=== PATIENT | female | born 1970 | race African-American/Black ===

== ENCOUNTER → 2020-08-31 13:06 | Outpatient (REF) | payer MEDICAID, SELFPAY ==
--- NOTE | 2020-08-31 13:00 | CA_ITS ---
Transthoracic Echocardiogram Patient (Last, First, Middle): Bianca Ward D Gender: Female Date of : 1970 Age: 50 Procedure Date: 08/31/2020 Procedure Type: Transthoracic Echocardiogram Location: OP Height: 167.64 cm Weight: 90.72 kg BSA: 2.00 m2 Heart Rate: bpm BP: 132 / 80 mmHg Housekeeping Associate: JOURDAN Parker MD: Maribel Zamudio NP Solar Project Coordination Specialist: Gold Cameron MD Symptoms: R01.1 CARDIAC MURMUR Study Quality: Good ECG Rhythm: Sinus Conclusions: - Normal study Findings Left Ventricle Normal left ventricular size, thickness, and systolic function. The visually estimated ejection fraction is between 60-65%. Diastolic function is normal for age. Right Ventricle Normal right ventricular cavity size and systolic function. Atria Both atria are normal in size. There is no evidence of interatrial shunt. Aortic Valve Normal aortic valve structure and function. There is no aortic valve stenosis. There is no aortic valve regurgitation. Mitral Valve Normal mitral valve structure and function. There is trace mitral valve regurgitation. There is no mitral valve stenosis. Pulmonic Valve The pulmonic valve is likely normal. There is trace pulmonic valve regurgitation. Tricuspid Valve Normal tricuspid valve structure. There is mild tricuspid valve regurgitation. The right ventricular systolic pressure is normal. The right ventricular systolic pressure is 33 mmHg. Normal right atrial pressure. There is no evidence of pulmonary hypertension. Great Vessels All visible segments of the aorta are normal in size. The visualized portions of the pulmonary artery and branches are normal. Venous The inferior vena cava is normal in size and collapses greater than 50% with inspiration. Pericardium/Pleural There is no evidence of pericardial effusion. Prior Study Comparison No prior study available for comparison. Measurements 2D Linear Measurements IVSd: 1.04 0.6-0.9/0.6-1.0 cm LVIDd: 4.69 3.9-5.3/4.2-5.9 cm LVIDd Index: 2.35 2.4-3.2/2.2-3.1 cm/m2 LVIDs: 2.60 2.0-3.6 cm LVPWd: 1.03 0.7-1.1 cm Ao Root: 2.80 2.1-3.5 cm LA Diam: 4.10 2.7-3.8/3.0-4.0 cm LAIDs Index: 2.05 1.5-2.3 cm/m2 LV Mass: 213.98 67-162/88-224 g LV Mass Index: 106.99 43-95/49-115 g/m2 LVOT Diam: 2.00 3.0+(-)1.3 cm Mitral Valve MV Pk E: 1.03 MV PK A: 0.91 MV Decel Time: 264.00 E/A: 1.10 E'Lateral: 9.79 E'Medial: 7.72 E/E' Med: 13.30 E/E' Lat: 10.50 PHT: 77.00 MVA PHT: 2.86 Decel Tensas: 3.92 Aortic Valve AoV Pk Mauro: 1.61 AoV Mn Mauro: 1.09 AoV VTI: 0.39 AoV Pk Grad: 10.00 Aov Mn Grad: 5.00 DESIREE Cont.VTI: 2.51 LVOT LVOT Pk Mauro: 1.36 LVOT Mn Mauro: 0.89 LVOT VTI: 0.31 LVOT Pk Grad: 7.00 LVOT Mn Grad: 4.00 LVOT Diam: 2.00 LVOT Area: 3.14 Diastolic Function MV Pk E: 1.03 MV Pk A: 0.91 E/A: 1.10 E'Medial: 7.72 E/E' Med: 13.30 E' Laterial: 9.79 E/E' Lat: 10.50 Tricuspid Valve TR Pk Mauro: 2.72 TR Pk Grad: 30.00 RA Press: 3.00 RVSP: 33.00 Great Vessels Aorta Ao Root-2D: 2.80 2.0-3.7 cm Ao Asc: 2.90 2.1-3.4 cm Ao Arch: 2.90 Updated in Other Vendor System with Status of Final Gold Cameron MD electronically signed on 08/31/2020 4:07:09 PM with status of Final
== END ==
LOC: HO.CARD 13:06
PROVIDERS: PCP Emergency Medicine; Visit Provider Emergency Medicine
DX: R01.1 Cardiac murmur, unspecified (principal)
CPT/HCPCS: 93306

== ENCOUNTER → 2020-09-17 09:52 | Outpatient (REF) | payer MEDICAID, SELFPAY ==
--- NOTE | ~2020-09-17 | NM_ITS ---
EXAMINATION: NM BONE SCAN OF THE WHOLE BODY CLINICAL INFORMATION: Right upper quadrant pain and bone pain and rib cage pain. COMPARISON: No previous bone scan is available for comparison. Radiographs of the bilateral feet dated 08/10/2018 and radiographs of the chest dated 09/30/2017 are available for comparison. TECHNIQUE: Multiple gamma scintillation camera images of the whole body were performed 3 hours following the intravenous administration of 32 mCi Tc-99m MDP. FINDINGS: In the head, no significant abnormalities are present. In the thoracic cage and upper extremities, there is mildly increased activity in the region of the left sternoclavicular joint. No other chest abnormalities are present. The ribs appear unremarkable. In the spine, there is a small focus of mildly increased activity in the right side of the mid cervical spine, probably in the posterior elements and due to facet arthropathy. In the pelvis, no significant abnormalities are present. In the lower extremities, there is mildly increased activity in the patellar and medial compartments of both knees and very faintly in the left greater femoral trochanter. No other definite bony abnormalities are noted. The urinary bladder and faint visualization of both kidneys are noted. NM/NM bone scan whole body IMPRESSION: A few mild nonspecific abnormalities are noted as described above and these are all likely arthritic or traumatic in etiology. None of these abnormalities is strongly suspicious for metastatic disease.
== END ==
LOC: HO.NUCMED 09:52
PROVIDERS: Visit Provider Internal Medicine
DX: R10.11 Right upper quadrant pain (principal); E03.9 Hypothyroidism, unspecified; Z86.32 Personal history of gestational diabetes
CPT/HCPCS: 78306; A9503

== ENCOUNTER 2020-10-11 14:19 | Outpatient (REF) | payer MEDICAID, SELFPAY ==
--- NOTE | ~2020-10-11 | CT_ITS ---
EXAMINATION: CT CHEST WITHOUT CONTRAST CLINICAL INFORMATION: Smoking history COMPARISON: Previous chest x-ray most recent September 2017 TECHNIQUE: Multidetector volumetric CT imaging of the chest was done. Axial MIP volume rendering provided. Sagittal and coronal reformatted images were obtained. This CT examination was performed using dose optimization techniques as appropriate, variously including the following: *Automated exposure control *Adjustment of mA and/or kV according to patient size (this includes techniques or standardized protocols for targeted exams where dose is matched to indication/reason for exam; i.e. extremities or head) *Use of iterative reconstruction technique DLP: 297 mGy-cm FINDINGS: SEAT COVER CUTTER: Normal LUNGS: There is slight elevation of the right hemidiaphragm. The lungs are. No evidence of interstitial lung disease emphysema or bronchiectasis is seen. MEDIASTINUM: There is an air collection seen in the right paratracheal region adjacent to the right upper lobe suggestive of a tracheal diverticulum axial image 9 series 4. The mediastinum is otherwise normal. PLEURA: There is no pleural effusion. No pleural mass or thickening. AXILLA: No lymphadenopathy. No chest wall mass. UPPER ABDOMEN: The gallbladder has been removed. There is a benign-appearing calcification high in the dome of the liver. OSSEOUS STRUCTURES: There are mild degenerative changes of the spine. CT/CT chest wo con IMPRESSION: No acute findings. Slight elevation of the right hemidiaphragm. 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
== END 2020-10-11 14:20 | disposition home or self-care (01) ==
LOC: HO.CT 14:19
PROVIDERS: Visit Provider Internal Medicine
DX: J44.9 Chronic obstructive pulmonary disease, unspecified (principal); F17.290 Nicotine dependence, other tobacco product, uncomplicated
CPT/HCPCS: 71250

== ENCOUNTER 2020-10-25 14:42 | Outpatient (REF) | payer MEDICAID, SELFPAY ==
--- NOTE | ~2020-10-25 | MM_ITS ---
EXAMINATION: MM SCREENING DIGITAL BREAST TOMOSYNTHESIS, BILATERAL CLINICAL INFORMATION: Screening. Asymptomatic. The lifetime risk of breast cancer based on the Tyrer-Cuzick Model is 7.1%. COMPARISON: Mammography: September 08, 2018 and studies dating back to June 17, 2011 TECHNIQUE: Digital breast tomosynthesis is performed in both the craniocaudal and mediolateral oblique views along with computer-aided detection (CAD). Synthesized 2D images are generated from the tomosynthesis. Exaggerated right craniocaudal view also performed. FINDINGS: The breasts are extremely dense, which lowers the sensitivity of mammography (ACR BI-RADS breast composition Category d). There are no new significant masses, abnormal calcifications, or other abnormalities. MM/MM tomosynthesis screening BI IMPRESSION: There are no significant changes from prior study. ASSESSMENT: BI-RADS 1: Negative RECOMMENDATION: Routine annual mammography screening. This patient's information was entered into a reminder system with a target due date for their next mammogram.
== END 2020-10-25 14:43 | disposition home or self-care (01) ==
LOC: HO.MAMMO 14:42
PROVIDERS: PCP Internal Medicine; Visit Provider Internal Medicine
DX: Z12.31 Encounter for screening mammogram for malignant neoplasm of breast (principal)
CPT/HCPCS: 77063; 77067

== ENCOUNTER 2020-11-15 09:03 | Outpatient (REF) | payer MEDICAID, SELFPAY ==
--- NOTE | 2020-11-15 09:15 | EMG_ITS ---
Bilateral tibial and peroneal motor studies were performed. Bilateral superficial, peroneal, and sural studies were performed and paraspinal muscles were tested with a needle. IMPRESSION: 1. Bilateral superficial sensory neuropathy. 2. 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 3. No evidence of radiculopathy. MD MARTHA Ng/KAREN / [id number]
== END 2020-11-15 09:04 | disposition home or self-care (01) ==
LOC: HO.NEURO 09:03
PROVIDERS: Visit Provider Internal Medicine
DX: M79.604 Pain in right leg (principal); M79.605 Pain in left leg
CPT/HCPCS: 95886; 95911

== ENCOUNTER 2020-12-06 12:38 | Outpatient (REF) | payer MEDICAID, SELFPAY ==
--- NOTE | ~2020-12-06 | MM_ITS ---
EXAMINATION: BONE DENSITOMETRY CLINICAL INDICATION: Encounter for screening for osteoporosis. Hypothyroidism. COMPARISON: This None (current study represents initial baseline exam). TECHNIQUE: Using a [employer] DXA System (software version: 13.1) manufactured by [employer], dual-energy x-ray absorptiometry was performed of the lumbar spine and left hip. The images are of good technical quality. Summary results are attached. FINDINGS: AP SPINE L1-L4: BMD 1.456 g/cm2, Z-score 2.0, T-score 2.3, normal. LEFT FEMUR, NECK: BMD 1.286 g/cm2, Z-score 2.1, T-score 1.8, normal. LEFT FEMUR, TOTAL: BMD 1.369 g/cm2, Z-score 2.8, T-score 2.9, normal. IDENTIFIED RISK FACTORS: Secondary osteoporosis, (early menopause). Menopause. Tobacco user, (current smoker). Anticonvulsant. HISTORY OF FRACTURE: None listed. MEDICATIONS: ERT/SERMS. MM/XR DEXA axial skeleton IMPRESSION: 1. DIAGNOSIS: Normal bone density based on the lowest T-score value of 1.8 in the femoral neck applying World Health Organization criteria. 2. 10-YEAR FRACTURE RISK PREDICTION, FRAX: Major osteoporotic fracture (clinical spine, forearm, hip or shoulder) 1.8%. Hip fracture 0.0%. 3. Treatment Recommendations: NOF guidelines recommend consideration for treatment in postmenopausal women and men age 50 and older presenting with the following: -A hip or vertebral (clinical or morphometric) fracture. -T-score less than or equal to -2.5 at the femoral neck or spine after appropriate evaluation to exclude secondary causes. -Low bone mass at the hip or spine and a 10-year fracture probability by FRAX of greater than or equal to 3% for hip fracture or greater than or equal to 20% for major osteoporotic fracture based on the [place] adapted WHO algorithm. 4. Other Recommendations: All treatment decisions require clinical judgment and consideration of individual patient factors, including patient preferences, comorbidities, previous drug use, risk factors not captured in the FRAX model (e.g. frailty, falls, vitamin D deficiency, increased bone turnover, interval significant decline in bone density) and possible under or overestimation of fracture risk by FRAX. FUTURE SCAN RECOMMENDATION: People with diagnosed cases of osteoporosis or at high risk for fracture should have regular bone mineral density tests. For patients eligible for Medicare, routine testing is allowed once every 2 years. The testing frequency can be increased to one year for patients who have rapidly progressing disease, those who are receiving or discontinuing medical therapy to restore bone mass, or have additional risk factors.
== END 2020-12-06 12:39 | disposition home or self-care (01) ==
LOC: HO.MAMMO 12:38
PROVIDERS: Visit Provider Internal Medicine
DX: Z13.820 Encounter for screening for osteoporosis (principal); Z78.0 Asymptomatic menopausal state; F17.200 Nicotine dependence, unspecified, uncomplicated; Z79.899 Other long term (current) drug therapy
CPT/HCPCS: 77080

== ENCOUNTER 2021-09-11 07:54 | Outpatient (REF) | payer MEDICAID, SELFPAY ==
[2021-09-11 10:41] LABS: Hemoglobin 13.3 g/dl (12.0-16.0); Mean Corpuscular HGB Conc 32.4 g/dl (31.0-35.0); Mean Corpuscular Hemoglobin 29.6 pg (27.0-33.0); Mean Corpuscular Volume 91.3 fL (80.0-98.0); Mean Platelet Volume 8.9 fL (9.4-12.3); Platelet Count 290 X10*3/uL (160-400); Red Blood Count 4.49 X10*6/uL (4.20-5.50); Red Cell Distribution Width 13.6 % (11.0-16.0); White Blood Count 7.3 X10*3/uL (4.8-10.8)
[2021-09-11 11:44] LABS: Alanine Aminotransferase 19 U/L (0-31); Albumin Level 4.4 g/dL (3.5-5.0); Alkaline Phosphatase 74 U/L (39-117); Anion Gap 10 (12-20); Aspartate Amino Transferase 16 U/L (5-31); Bilirubin Total 0.3 mg/dL (0.0-1.0); Blood Urea Nitrogen 8 mg/dL (9-16); Calcium 9.7 mg/dL (8.4-10.2); Carbon Dioxide 30 mmol/L (22-29); Chloride 102 mmol/L (96-108); Estimated Glomerular Filt Rate > 60; Glucose Random 106 mg/dL (60-115); Lipase < 4 U/L (8-78); Potassium 4.2 mmol/L (3.3-5.1); Sodium 138 mmol/L (135-145); Total Protein 7.1 g/dL (6.5-8.0)
== END 2021-09-11 07:55 | disposition home or self-care (01) ==
LOC: HO.LAB 07:54
PROVIDERS: PCP Internal Medicine; Referring Provider Internal Medicine; Visit Provider Nurse Practitioner Family
DX: K64.8 Other hemorrhoids (principal); R19.7 Diarrhea, unspecified; J45.909 Unspecified asthma, uncomplicated; E78.5 Hyperlipidemia, unspecified; K21.9 Gastro-esophageal reflux disease without esophagitis; K59.04 Chronic idiopathic constipation; Z12.11 Encounter for screening for malignant neoplasm of colon
CPT/HCPCS: 36415; 80053; 83690; 85027; 99212

== ENCOUNTER 2023-04-09 09:28 | Outpatient (REF) | payer MEDICAID, SELFPAY | END 2023-04-09 09:29 | disposition home or self-care (01) | LOC: HO.MAMMO 09:28 | PROVIDERS: PCP Internal Medicine; Visit Provider Internal Medicine | DX: Z12.31 Encounter for screening mammogram for malignant neoplasm of breast (principal) | CPT/HCPCS: 77063; 77067 ==

== ENCOUNTER → 2023-04-09 10:00 | Outpatient (BNV) | payer MEDICAID, SELFPAY | PROVIDERS: PCP Internal Medicine; Visit Provider Radiology Diagnostic Radiology | DX: Z12.31 Encounter for screening mammogram for malignant neoplasm of breast (principal) | CPT/HCPCS: 77063; 77067 ==

== ENCOUNTER 2023-04-14 10:53 | Outpatient (REF) | payer MEDICAID, SELFPAY ==
[2023-04-14 13:49] LABS: Alanine Aminotransferase 11 U/L (0-31); Albumin Level 4.5 g/dL (3.5-5.0); Alkaline Phosphatase 71 U/L (39-117); Aspartate Amino Transferase 17 U/L (5-31); Bilirubin Direct 0.2 mg/dL (0.0-0.5); Bilirubin Total 0.5 mg/dL (0.0-1.0); Total Protein 7.3 g/dL (6.5-8.0)
[2023-04-14 14:14] LABS: Cholesterol 194 mg/dL (<200); HDL Cholesterol 46 mg/dL (>40); LDL Cholesterol Calculated 127 mg/dL (<100); Triglycerides 106 mg/dL (<150)
[2023-04-14 14:31] LABS: Reflex LDLD? No
== END 2023-04-14 10:54 | disposition home or self-care (01) ==
LOC: HO.HHCL 10:53
PROVIDERS: Visit Provider Internal Medicine
DX: E78.2 Mixed hyperlipidemia (principal)
CPT/HCPCS: 36415; 80061; 80076

== ENCOUNTER 2023-06-16 11:39 | Outpatient (REF) | payer MEDICAID, SELFPAY ==
--- NOTE | ~2023-06-16 | XR_ITS ---
EXAMINATION: XR CERVICAL SPINE CLINICAL INFORMATION: COPD, neck pain on left side, weight loss and not intentional. COMPARISON: None available. TECHNIQUE: AP, lateral and 2 odontoid views of the cervical spine were obtained. FINDINGS: Multiple pins and clips overlie the posterior occipital/upper neck area. Multilevel cervical spondylosis with moderate loss of disc space height at C5-C6. Asymmetric bony hypertrophy on the right. XR/XR cervical spine 3V IMPRESSION: Multilevel cervical spondylosis most notable at C5-C6. Correlation with clinical exam recommended to determine further management. If there is concern for fracture or other underlying pathology, MRI could be obtained for further evaluation.
--- NOTE | ~2023-06-16 | XR_ITS ---
EXAMINATION: XR CHEST CLINICAL INFORMATION: Weight loss, COPD, neck pain on left side. Patient states weight loss is unintentional. Numbness and tingling left arm. Patient states 1 to 2 months. No injury. She did state she has neuropathy. COMPARISON: CT scan of the chest of 10/11/2020. Chest radiograph of 09/30/2017. TECHNIQUE: 2 views of the chest were obtained. FINDINGS: The lungs are well-inflated. Heart size is normal. Degenerative changes in the thoracic spine. There is no gross pneumothorax. No pleural effusion. No focal consolidation to suggest pneumonia. Advanced degenerative changes in the thoracic spine. XR/XR chest 2V IMPRESSION: 1. No evidence of pneumonia. 2. Advanced degenerative changes in the thoracic spine. This study was presented today June 16, 2023 at 1:20 PM for interpretation. Stat results provided at this time as requested by referring provider.
== END 2023-06-16 11:40 | disposition home or self-care (01) ==
LOC: HO.HHCX 11:39
PROVIDERS: Visit Provider Internal Medicine
DX: R20.0 Anesthesia of skin (principal); R20.2 Paresthesia of skin; M54.2 Cervicalgia; R63.4 Abnormal weight loss; J44.9 Chronic obstructive pulmonary disease, unspecified
CPT/HCPCS: 71046; 72040

== ENCOUNTER 2023-07-31 13:05 | Outpatient (REF) | payer MEDICAID, SELFPAY ==
--- NOTE | 2023-07-31 13:08 | EMG_ITS ---
Chief complaint: 4 months of left arm numbness Reason for referral: Evaluate for Carpal Tunnel Syndrome versus radiculopathy Referred by: Dr. Teodoro Brown Procedure done: Left upper extremity NCS/EMG Precautions and/or limitations: None The limb temperature was monitored continuously and remained between 32-36 degrees C during the performance of the NCS. Nerve Conduction Studies Anti Sensory Summary Table ?Stim Site NR Onset (ms) Norm Onset (ms) Peak (ms) Norm Peak (ms) O-P Amp (?V) Norm O-P Amp Site1 Site2 Delta-0 (ms) Dist (cm) Mauro (m/s) Norm Mauro (m/s) Left Median Anti Sensory (2nd Digit) Wrist ? 2.7 3.5 <3.6 24.0 >10 Wrist 2nd Digit 2.7 14.0 52 Left Radial Anti Sensory (Thumb) Forearm ? 1.7 2.2 <3.1 21.6 Forearm Thumb 1.7 0.0 Left Ulnar Anti Sensory (5th Digit) Wrist ? 2.6 3.3 <3.7 23.7 >15.0 Wrist 5th Digit 2.6 14.0 54 Motor Summary Table ?Stim Site NR Onset (ms) Norm Onset (ms) O-P Amp (mV) Norm O-P Amp iAmp (mV) Amp (1st) (%) Site1 Site2 Delta-0 (ms) Dist (cm) Mauro (m/s) Norm Mauro (m/s) Left Median Motor (Abd Poll Brev) Wrist ? 3.3 <3.9 11.7 >4.5 13.4 100.0 Elbow Wrist 3.6 23.0 64 >45 Elbow ? 6.9 12.7 14.9 108.5 Left Ulnar Motor (Abd Dig Minimi) Wrist ? 2.9 <3.0 8.6 >5 10.0 100.0 B Elbow Wrist 3.4 18.0 53 >45 B Elbow ? 6.3 8.9 10.7 103.5 A Elbow B Elbow 1.7 10.0 59 >45 A Elbow ? 8.0 8.7 10.5 101.2 EMG ?Side Muscle Nerve Root Ins Act Fibs Psw Amp Dur Poly Recrt Int Pat Comment Left 1stDorInt Ulnar C8-T1 Nml Nml Nml Nml Nml 0 Nml Complete Left FlexCarRad Median C6-7 Nml Nml Nml Nml Nml 0 Nml Complete Left Biceps Musculocut C5-6 Nml Nml Nml Nml Nml 0 Nml Complete Left Triceps Radial C6-7-8 Nml Nml Nml Nml Nml 0 Nml Complete Left Deltoid Axillary C5-6 Nml Nml Nml Nml Nml 0 Nml Complete FINDINGS: All motor and sensory nerves tested showed normal latencies, amplitudes and conduction velocities. Concentric needle EMG was performed in selected muscles of the left upper extremity. Study did not reveal signs of electric abnormalities as shown in the table below. IMPRESSION: 1. This is a normal study. 2. There is no electrodiagnostic evidence for median neuropathy, ulnar neuropathy, brachial plexopathy, or cervical radiculopathy. Thank you for your kind referral. Anh Fuller MD, ARELI Board Certified, [place] [employer] and Rehabilitation (ABPMR) Board Certified, [place] Board of Electrodiagnostic Medicine (ABEM) [place] [id number] [facility]
== END 2023-07-31 13:06 | disposition home or self-care (01) ==
LOC: HO.NEURO 13:05
PROVIDERS: PCP Internal Medicine; Visit Provider Internal Medicine
DX: R20.2 Paresthesia of skin (principal); M54.2 Cervicalgia
CPT/HCPCS: 95886; 95909

== ENCOUNTER → 2023-07-31 13:08 | Outpatient (BNV) | payer MEDICAID, SELFPAY | PROVIDERS: PCP Internal Medicine; Visit Provider Physical Medicine & Rehabilitation | DX: M79.602 Pain in left arm (principal); R20.2 Paresthesia of skin | CPT/HCPCS: 95886; 95909 ==

== ENCOUNTER 2023-10-13 12:26 | Outpatient (REF) | payer MEDICAID, SELFPAY ==
[2023-10-13 13:11] LABS: MANUAL DIFF FLAG NO
[2023-10-13 13:30] LABS: Basophils Absolute Auto 0.1 X10*3/uL (0.0-0.2); Basophils Percent Auto 0.9 % (0-2); Eosinophils Absolute Auto 0.1 X10*3/uL (0.0-0.4); Hematocrit 41.4 % (37.0-47.0); Hemoglobin 13.6 g/dl (12.0-16.0); Imm Gran Abs Auto 0.01 X10*3/uL (0.00-0.03); Imm Gran Pct Auto 0.2 % (0.0-0.4); Lymphocytes Absolute Auto 2.7 X10*3/uL (1.2-4.9); Lymphocytes Percent Auto 50.7 % (20-40); Mean Corpuscular HGB Conc 32.9 g/dl (31.0-35.0); Mean Corpuscular Hemoglobin 29.8 pg (27.0-33.0); Mean Corpuscular Volume 90.6 fL (80.0-98.0); Mean Platelet Volume 10.2 fL (9.4-12.3); Monocytes Absolute Auto 0.4 X10*3/uL (0.1-1.2); Monocytes Percent Auto 6.9 % (2-11); Neutrophils Absolute Auto 2.1 x10*3/uL (2.0-8.3); Neutrophils Percent Auto 39.3 % (45-73); Platelet Count 261 X10*3/uL (160-400); Red Blood Count 4.57 X10*6/uL (4.20-5.50); Red Cell Distribution Width 12.9 % (11.0-16.0); White Blood Count 5.4 X10*3/uL (4.8-10.8)
[2023-10-13 16:16] LABS: Appearance Urine Turbid; Glucose Urine UA Negative (Negative); Leukocyte Esterase Urine Small (1+) (Negative); Nitrite Urine Negative (Negative); UMIC TRIGGER UACC YES; Urine Blood Negative (Negative); Urine Ketones Negative (Negative); Urine Protein Trace mg/dL (Neg-Trace)
[2023-10-13 16:21] LABS: Color Urine Yellow
[2023-10-13 16:32] LABS: Hyaline Casts Urine 0-2 /LPF (0-2); RBC Urine 0-2 /HPF (0-2); UACC Culture Trigger YES; WBC Urine 0-5 /HPF (0-5)
[2023-10-13 16:33] LABS: Bacteria Urine 3+ (None Seen)
[2023-10-13 16:44] LABS: Rheumatoid Factor < 13.0 IU/mL (<15.0)
[2023-10-13 16:51] LABS: Alanine Aminotransferase 9 U/L (0-31); Albumin Level 4.2 g/dL (3.5-5.0); Alkaline Phosphatase 62 U/L (39-117); Anion Gap 12 (12-20); Aspartate Amino Transferase 11 U/L (5-31); Bilirubin Total 0.2 mg/dL (0.0-1.0); Blood Urea Nitrogen 5 mg/dL (9-16); C Reactive Protein 0.11 mg/dL (< or = 0.50); Calcium 9.7 mg/dL (8.4-10.2); Carbon Dioxide 27 mmol/L (22-29); Chloride 104 mmol/L (96-108); Estimated Glomerular Filt Rate > 60; Glucose Random 100 mg/dL (60-115); Sodium 139 mmol/L (135-145); Total Protein 7.1 g/dL (6.5-8.0)
[2023-10-13 16:56] LABS: Erythrocyte Sedimentation Rate 4 MM/HR (0-20)
[2023-10-15 05:09] LABS: Lyme Abs Screen <0.90 index
== END 2023-10-13 12:27 | disposition home or self-care (01) ==
LOC: HO.HHCL 12:26
PROVIDERS: Visit Provider Internal Medicine
DX: R63.4 Abnormal weight loss (principal)
CPT/HCPCS: 36415; 80053; 81001; 85025; 85652; 86140; 86431; 86617; 86618; 87086

== ENCOUNTER 2023-10-29 19:28 | Outpatient (REF) | payer MEDICAID, SELFPAY | END 2023-10-29 19:29 | disposition home or self-care (01) | LOC: HO.MRI 19:28 | PROVIDERS: PCP Internal Medicine; Visit Provider Internal Medicine | DX: Z13.89 Encounter for screening for other disorder (principal) ==

== ENCOUNTER 2024-05-06 09:15 | Outpatient (REF) | payer MEDICAID, SELFPAY ==
[2024-05-06 11:53] LABS: TSH reflex Free T4 2.64 uIU/mL (0.32-4.0)
== END 2024-05-06 09:16 | disposition home or self-care (01) ==
LOC: HO.HHCL 09:15
PROVIDERS: Visit Provider Internal Medicine
DX: R63.4 Abnormal weight loss (principal)
CPT/HCPCS: 36415; 84443

== ENCOUNTER 2024-12-14 16:44 | Outpatient (REF) | payer MEDICAID, SELFPAY ==
--- OUTSIDE RECORDS SUMMARY | 2024-12-14 16:46 | XMS_ITS | Data Portability ---
Author Organization [place] - [facility], Allergy Address [address] [facility] [address] [place] [address] Care Team Providers Care Spa Concierge Name Role Phone ALLYSON BLOOD Primary Care Provider Assessment Encounter Date Assessment Date Assessment LastModified by Organization Details LastModified Time 01/20/2024 01/20/2024 6 months globus sensation and weight loss Examination shows no oral lesions, base of tongue is soft to palpation and neck shows no adenopathy. Transnasal fiberoptic laryngoscopy is normal. Suggest a barium swallow .GI evaluation with EGD pending gisela Not available 01/20/2024 16:00:53 06/03/2024 06/03/2024 Patient presents with persistent sensation of pharyngeal globus, excess saliva, and dysphagia. Last examined in January by Dr. Leach with reassuring laryngoscopy findings. Barium swallow study in February showed normal swallowing mechanism and nonobstructive cricopharyngeal bar. Reviewed with patient today, as Dr. Leach previously stated, there is likely little do be done from ENT perspective. Consider switching to an alcohol-free mouthwash and decreasing to once daily, as the alcohol is drying and may be contributing to compensatory excess saliva production. Discussed likely GI is going to be the best avenue to find relief. 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 Not available 06/03/2024 16:10:42 Plan of Treatment Reminders Order Date Submit Date Provider Last Modified By Organization Details Last Modified Time Details Appointments Establish ed 15 2024 01:15P M MARV VELIZ MD Not available Not available Not available Lab None recorded. Referral None recorded. Procedures None recorded. Surgeries None recorded. Imaging barium swallow study 2023 024 [facility] Radiology (Scheduling, Multiplte Sites), [address] [place], [address], 02/18/2024 11:57:35 Medication Orders None recorded. Patient TargetsNo targets recorded. Patient InstructionsNo instructions recorded. Reason for Referral None Reported. Results Created Date Observation Date Name Description Value Unit Range Abnormal Flag Note LastModifiedBy Organization Detail LastModifiedTime 02/18/20 24 02/18/2024 timoteo ferrer carolynn study No observ ation record ed. [facility] [address] [place], [address], 06/03/2024 15:56:21 Result Notes None recorded. Problems Name Problem SNOMED Code Status Onset Date Resolution Date Notes Provider Name and Address Organization Details Recorded Time Allergic rhinitis 70823776 Active 2015 Other allergic rhinitis; Note: Date Diagnosed: 01/18/2016 2:02 PM (J30.89) Not Available [facility] 4 02:18:37 Bleeding from nose 675775360 Active 2021 Epistaxis; Note: Date Diagnosed: 05/16/2022 1:39 PM (R04.0) Not Available [facility] 4 02:18:30 Nasal congestio n 56070281 Active 2017 Nasal congestion ; Note: Date Diagnosed: 11/02/2017 1:30 PM (R09.81) Not Available [facility] 4 02:19:20 Hypertrop hy of nasal turbinate s 64843951 Active 2017 Hypertroph y of nasal turbinates ; Note: Date Diagnosed: 11/02/2017 4:08 PM (J34.3) Not Available [facility] 4 02:18:41 Dysphagia 84257747 Active 2023 GORDON GENAO MD [address] [place] [address], [place], [address] , [facility] - [facility] 4 11:07:46 Feeling of lump in throat 878818530 Active 2023 GORDON GENAO MD [address] [facility],[place] [address], [facility] [place], [address] , [facility] 4 11:07:48 Gastroeso phageal reflux disease without esophagit is 839691216 Active 2023 ZANDRA CHURCHILL PA-C [address] [facility],[place] [address], [facility] [place] [place], [address] , [facility] 4 16:06:27 Problem Notes None recorded. Procedures Surgical History Date Name Laterality Status Provider Name and Address Organization Details Recorded Time 01/20/20 24 Fiberoptic Laryngoscopy (Comprehensive) completed GORDON LEACH MD [address] [facility] [address], [place], [address], [facility] 01/20/2024 11:09:28 Imaging Results None recorded. Procedure Notes None recorded. Medical Equipment None Reported. Allergies Allergen ID Allergen Name Allergen Category Reaction Reaction Severity Criticality Documentation Date Start Date Code Code System Note Provider Name and Address Organization Details Recorded Time 11570 penicilli n V potassium medicatio n other Not available Not available 10/27/202325217 5 RxNorm React ion: unkno wn, unspe cifie d;; Not Available [facility] 4 00:53:20 Medications Name Sig Start Date Stop Date Status Note LastModified by Organization Details LastModified Time clonidine HCl 0.1 mg tablet TAKE 1 TABLET BY MOUTH TWICE A DAY NEEDED DO NOT TAKE PRAZOSIN active Not Available Not Available No t Available acetamino phen 325 mg tablet active Medicati on ID: [id number] B rand Name: acetamin ophen Se nd Method: E-Prescr ibed Sub s Allowed: subs OK Speci al Instruct ion: TAKE 2 TABLETS BY MOUTH EVERY 6 HOURS NEEDED FOR PAIN (MILD TO MODERATE PAIN) FOR UP TO 10 DAYS. Me dication GenericN yariel: acetamin ophen Not Available Not Available Not Available doxycycli ne hyclate 100 mg capsule TAKE 1 CAPSULE BY MOUTH TWICE A DAY FOR 7 DAYS active Not Available Not Available No t Available clindamyc in HCl 300 mg capsule TAKE 2 CAPSULES BY MOUTH 1 HOUR BEFORE TREATMEN T active Not Available Not Available No t Available albuterol sulfate 2.5 mg/3 mL (0.083 %) solution for nebulizat ion 05/16 completed Medicati on ID: [id number] D uration Value: 8 Brand Name: albutero l sulfate Send Method: E-Prescr ibed Sub s Allowed: subs OK Speci al Instruct ion: INHALE 3 MILLILIT ER BY NEBULIZA TION ROUTE 3 TIMES EVERY DAY NEEDED FOR SHORTNES S OF BREATH M edfernytidayton nGeneric Name: albutero l sulfate Not Available Not Available Not Available loperamid e 2 mg capsule TAKE 1 CAPSULE BY MOUTH EVERY 4 HOURS NEEDED LOOSE STOOL active Not Available Not Available No t Available azithromy laura 250 mg tablet TAKE 2 TABLETS BY MOUTH TODAY, THEN TAKE 1 TABLET DAILY FOR 4 DAYS DIRECTED active Not Available Not Available No t Available CombiPatc h 0.05 mg-0.14 mg/24 hr transderm al APPLY 1 PATCH TO SKIN DIRECTED ON PACKAGE LABELING TWICE PER WEEK active Not Available Not Available No t Available ibuprofen 800 mg tablet TAKE 1 TABLET (800 MG) BY MOUTH IF NEEDED IN THE MORNING, AT NOON, AND AT BEDTIME FOR MILD PAIN. active Not Available Not Available No t Available prazosin 1 mg capsule TAKE 1 CAPSULE BY MOUTH AT BEDTIME active Not Available Not Available No t Available prednison e 20 mg tablet TAKE 2 TABLETS BY MOUTH DAILY FOR 4 DAYS active Not Available Not Available No t Available olanzapin e 5 mg tablet TAKE 1 TABLET BY MOUTH EVERY DAY active Not Available Not Available No t Available clindamyc in HCl 150 mg capsule TAKE 4 CAPSULES BY MOUTH 1 HOUR BEFORE TREATMEN T, THEN 1 CAPSULE 3 TIMES A DAY FOR 4 DAYS active Not Available Not Available No t Available ciproflox acin 250 mg tablet TAKE 1 TABLET BY MOUTH EVERY 12 HOURS FOR 7 DAYS active Not Available Not Available No t Available estradiol -norethin drone acet 1 mg-0.5 mg tablet TAKE 1 TABLET BY MOUTH EVERY DAY active Not Available Not Available No t Available ciproflox acin 500 mg tablet PLEASE SEE ATTACHED FOR DETAILED DIRECTIO NS active Not Available Not Available No t Available sulfameth oxazole 800 mg-trimet hoprim 160 mg tablet PLEASE SEE ATTACHED FOR DETAILED DIRECTIO NS active Not Available Not Available No t Available omeprazol e 40 mg capsule,d elayed release TAKE 1 CAPSULE BY MOUTH TWICE A DAY active Not Available Not Available No t Available quetiapin e 100 mg tablet active Medicati on ID: [id number] B rand Name: quetiapi ne Send Method: E-Prescr ibed Sub s Allowed: subs OK Speci al Instruct ion: TAKE 1/2 TABLET BY MOUTH IN THE MORNING, 1/2 MIDDAY, AND 1 FULL TAB AT BEDTIME Medicati onGeneri cName: quetiapi ne Not Available Not Available Not Available hydrocort isone 2.5 % topical cream with perineal applicato r INSERT INTO THE RECTUM 2 TIMES DAILY. active Not Available Not Available No t Available famotidin e 20 mg tablet TAKE 1 TABLET BY MOUTH TWICE A DAY active Not Available Not Available No t Available trazodone 100 mg tablet TAKE 1 TABLET BY MOUTH EVERY DAY AT BEDTIME NEEDED active Not Available Not Available No t Available dicyclomi ne 20 mg tablet 05/16 completed Medicati on ID: [id number] D uration Value: 30 Brand Name: dicyclom ine Send Method: E-Prescr ibed Sub s Allowed: subs OK Speci al Instruct ion: TOME LILIA TABLETA POR VIA ORAL CUATRO VECES AL JANELL ...30 MINUTES PRIOR TO MEALS AND AT BEDTIME Medicati onGeneri cName: dicyclom ine Not Available Not Available Not Available mirtazapi ne 30 mg tablet active Medicati on ID: [id number] B rand Name: mirtazap ine Send Method: E-Prescr ibed Sub s Allowed: subs OK Speci al Instruct ion: TAKE 1 TABLET BY MOUTH EVERYDAY AT BEDTIME Medicati onGeneri cName: mirtazap ine Not Available Not Available Not Available trazodone 150 mg tablet 05/16 completed Medicati on ID: [id number] D uration Value: 30 Brand Name: trazodon e Send Method: E-Prescr ibed Sub s Allowed: subs OK Speci al Instruct ion: TAKE 1/2 TABLET IN THE AM AND 1 TABLET AT BEDTIME Medicati onGeneri cName: trazodon e Not Available Not Available Not Available ferrous sulfate 325 mg (65 mg iron) tablet TAKE 1 TABLET BY MOUTH EVERY DAY active Not Available Not Available No t Available clotrimaz ole-betam ethasone 1 %-0.05 % topical cream APPLY TO AFFECTED AREA TWICE A DAY active Not Available Not Available No t Available benztropi ne 1 mg tablet TAKE 1 TABLET BY MOUTH ONCE active Not Available Not Available No t Available clotrimaz ole 1 % topical solution APPLY TOPICALL Y 2 (TWO) TIMES A DAY. APPLY TO NAILS AND SKIN active Not Available Not Available No t Available Advair Diskus 500 mcg-50 mcg/dose powder for inhalatio n active Medicati on ID: [id number] B rand Name: Advair Diskus S end Method: E-Prescr ibed Sub s Allowed: subs OK Speci al Instruct ion: TAKE 1 PUFF BY MOUTH EVERY 12 HOURS IN THE MORNING AND IN THE EVENING Medicati onGeneri cName: Advair Diskus Not Available Not Available Not Available gabapenti n 300 mg capsule TAKE 2 CAPSULES BY MOUTH 3 TIMES A DAY active Not Available Not Available No t Available omeprazol e 20 mg capsule,d elayed release TAKE 1 CAPSULE BY MOUTH TWICE A DAY 06/03 completed Not Available Not Available Not Available hydroxyzi ne HCl 25 mg tablet active Medicati on ID: [id number] B rand Name: hydroxyz ine HCl Send Method: E-Prescr ibed Sub s Allowed: subs OK Speci al Instruct ion: TAKE 1 TABLET BY MOUTH 1 TO 3 TIMES DAILY HOLD IF FEELING LIGHTHEA DED/DIZZ Y Medica tionGene ricName: hydroxyz ine HCl Not Available Not Available Not Available olanzapin e 15 mg tablet TAKE 1 TABLET BY MOUTH EVERYDAY AT BEDTIME active Not Available Not Available No t Available azelastin e 137 mcg (0.1 %) nasal spray Inhale 2 spray into both nostrils twice a day as directed 05/16 completed Medicati on ID: [id number] P heidi andino By Name: GENNY Rodriguez nd Name: azelasti ne Send Method: E-Prescr ibed Sub s Allowed: subs OK Medic ationGen ericName : azelasti ne Not Available Not Available Not Available Nasal Decongest ant (pseudoep hedrine) 30 mg tablet TAKE 1 TABLET (30 MG) BY MOUTH EVERY 4 (FOUR) HOURS IF NEEDED FOR CONGESTI ON FOR UP TO 10 DAYS. *NC* active Not Available Not Available No t Available ondansetr on 4 mg disintegr ating tablet active Medicati on ID: [id number] B rand Name: beverly walter Send Method: E-Prescr ibed Sub s Allowed: subs OK Speci al Instruct ion: TAKE 1 TABLET BY MOUTH EVERY DAY Medi cationGe nericNam e: ondanset jose angel Not Available Not Available Not Available lithium carbonate 300 mg tablet TAKE 1 TABLET BY MOUTH TWICE A DAY WITH MEALS active Not Available Not Available No t Available fluticaso ne propionat e 50 mcg/actua tion nasal spray,lanny pension 2 puff into both nostrils once a day 2017 active Medicati on ID: [id number] D uration Value: 120 Prescri bed By Name: GENNY Rodriguez nd Name: fluticas one Send Method: E-Prescr ibed Sub s Allowed: subs OK Medic ationGen ericName : fluticas one Not Available Not Available Not Available clotrimaz ole 1 % topical cream APPLY TO SKIN AND TOENAILS DAILY FOR 12 WEEKS active Not Available Not Available No t Available doxycycli ne hyclate 100 mg tablet PLEASE SEE ATTACHED FOR DETAILED DIRECTIO NS active Not Available Not Available No t Available naproxen 500 mg tablet TAKE 1 TABLET BY MOUTH TWICE A DAY active Not Available Not Available No t Available Ventolin HFA 90 mcg/actua tion aerosol inhaler INHALE 2 PUFFS BY MOUTH EVERY 4 TO 6 HOURS NEEDED active Not Available Not Available No t Available rosuvasta tin 10 mg tablet TAKE 1 TABLET BY MOUTH EVERYDAY AT BEDTIME active Not Available Not Available No t Available bupropion HCl XL 150 mg 24 hr tablet, extended release TAKE 1 TABLET BY MOUTH EVERY DAY IN THE MORNING active Not Available Not Available No t Available nitrofura ntoin monohydra te/macroc rystals 100 mg capsule TAKE 1 CAPSULE BY MOUTH TWICE A DAY FOR 5 DAYS active Not Available Not Available No t Available acamprosa te 333 mg tablet,de layed release active Medicati on ID: [id number] B rand Name: acampros ate Send Method: E-Prescr ibed Sub s Allowed: subs OK Speci al Instruct ion: TAKE 2 TABLETS BY MOUTH 3 TIMES A DAY Medi cationGe nericNam e: acampros ate Not Available Not Available Not Available chlorhexi dine gluconate 0.12 % mouthwash SWISH 15 ML TWICE A DAY AND SPIT OUT active Not Available Not Available No t Available varenicli ne tartrate 0.5 mg (11)-1 mg (42) tablets in a dose pack TAKE DIRECTED ON BOX active Not Available Not Available No t Available quetiapin e 50 mg tablet TAKE 1 TABLET BY MOUTH TWICE A DAY NEEDED active Not Available Not Available No t Available estradiol -norethin drone acet 0.5 mg-0.1 mg tablet TAKE 1 TABLET BY MOUTH EVERY DAY active Not Available Not Available No t Available diclofena c 1 % topical gel APPLY 2 GRAMS TO RIGHT CHEST WALL 2 TIMES A DAY NEEDED active Not Available Not Available No t Available GaviLyte- G 236 gram-22.7 4 gram-6.74 gram-5.86 gram oral solution DRINK 240 ML BY MOUTH EVERY 10 MINUTES active Not Available Not Available No t Available blood pressure test kit-large cuff USE TO CHECK BLOOD PRESSURE ONCE DAILY active Not Available Not Available No t Available Suboxone 8 mg-[address] 1 FILM UNDER TONGUE THREE TIMES A DAY active Not Available Not Available No t Available Suboxone 12 mg-[address] l film [address] 1 FILM UNDER TONGUE ONCE A DAY active Not Available Not Available No t Available naloxone 4 mg/actuat ion nasal spray SPRAY 0.1 ML INTRANAS ALLY FOR OPIOID OVERDOSE . REPEAT IN 3 MINUTES IF NO OR MINIMAL RESPONSE active Not Available Not Available No t Available Readi-Cat 2 2 % (w/v) oral suspensio n INSTRUCT ED BY RADIOLOG Y active Not Available Not Available No t Available Vitals Date Recorded Body height Body mass index (BMI) Body weight Provider Name and Address Organization Details Last Updated DateTime 06/03/2024 167.64 cm 24.2 kg/m2 18349.86 g Bonny Ramirez [place] - [facility] 06/03/2024 15:46:51 Social History None recorded. Functional Status None recorded. Mental Status None recorded. Family History Nothing Reported. Medical History No medical history recorded. Gynecological HistoryNo gynecological history recorded. Obstetrics History GPAL:G 0 P 0 0 0 0 Past Encounters Encounter ID Performer Location Encounter Start Date Encounter Closed Date Diagnosis/Indication Diagnosis SNOMED-CT Code Diagnosis ICD10 Code Diagnosis Note [id number] GORDON GENAO MD [facility] [address] [place] [address] 01/20/2024 10:07:50 01/20/2024 11:10:51 Dysphagia 85184216 R13.10 Feeling of lump in throat 253215270 R09.89 [id number] ZANDRA CHURCHILL PA-C [facility] [address] [place] [address] 06/03/2024 15:31:06 06/03/2024 16:03:09 Feeling of lump in throat 730515835 R09.89 Dysphagia 28144289 R13.1 0 Gastroesop hageal reflux disease without esophagitis 645232803 K21.9 Health Concerns Section Related Observation LastModified by Organization Detai ls LastModified Time None Recorded Concern Status LastModified by Organization Details LastModified Time None Recorded Advance Directives Directive None Recorded Payers Insurance Date Sequence Insurance Name Policy Number Policy Dominguez Covered Member ID Dominguez Member ID Guarantor Name 06/02/2024 1 [place] [facility] Bianca Ward [id number] Bianca Ward 12/09/2024 1 [place] [facility] Bianca D Ed [id number] Bianca Ward Notes Date Note Type Note Provider Name and Address Organization Details Recorded Time 01/20/2024 text/html Patient reports 6 months of sensation of congestion in her throat and difficulty swallowing. She has had no hematemesis or hemoptysis. She reports at least a 40 pound weight loss in this period. Last month she had COVID-19 infection and pharyngitis treated with antibiotics. Prior to that she had no sore throat or ear pain. Those symptoms have resolved. Her voice is back to normal. She notes some mild sinus congestion. She has lots of anxiety. Reports CT scan of neck performed but Rakel contacted [facility] and they said none was in her chart GORDON LEACH MD [address] [place] [address], [place], [address], [place] - [facility] 01/20/2024 16:01:40 06/03/2024 text/html 54 year old femscott kohli presents for evaluation of the throat. Reports she has top partial denture. Removes them at night and the mouth closes tightly and the chin gets displaced. This is causing me this phlegm and congestion in my throat at night. Burning discomfort after she lies down. There is no dysphagia though the swallow sometimes feels effortful. Had some hoarseness recently when she had bronchitis but not otherwise. There is no hemoptysis but sometimes there is blood when she brushes the tongue. A lot of saliva in the mouth. A horrible taste. Mouthwash does not help; she uses this about 3 times per day. She has acid reflux and takes omeprazole 20 mg twice daily which controls the acid reflux without breakthrough symptoms. Briefly took famotidine recently for diarrhea. No change in symptoms. Recently had a colonoscopy. She lost 50 pounds in three months, unintentional. This has been worked up and is negative so far. She has night sweats daily but no fevers. Smokes 3 cigarettes a day, is tapering down in an attempt to quit. Has been smoking 40 years. No history of heavy alcohol intake. Underwent laryngoscopy with Dr. Leach in January that was reassuring. Barium swallow study obtained thereafter demonstrated normal swallowing mechanism with nonobstructive cricopharyngeal bar. GORDON LEACH MD [address] [place] [address], [address], [place] - [facility] 06/03/2024 16:46:02 OBGyn Episode No OBEpisode recorded.
--- OUTSIDE RECORDS SUMMARY | 2024-12-14 16:46 | XMS_ITS | Clinical Summary ---
Author Organization 175 [facility] Address 175 [place] [address] Phone Care Team Providers Care Brownfield Program Coordinator Name Role Phone Teodoro Hubbard MD Primary Care Provi david Allergies Active Allergy Reactions Criticality Noted Date Comments Penicillins 07/03/2020 Medications albuterol 2.5 mg /3 mL (0.083 %) nebulizer solution Take 1 Vial by nebulization every 4 hours as needed. Active albuterol HFA (PROAIR HFA ; PROVENTIL HFA ; VENTOLIN HFA) 90 mcg/actuation inhaler Inhale 2 Puffs into the lungs every 4 hours as needed. Active buprenorphine-n aloxone (SUBOXONE) 8-2 mg [address] film Place under the tongue. Active cloNIDine (CATAPRES) 0.1 mg tablet Take 0.1 mg by mouth 2 times daily. Active clotrimazole (LOTRIMIN) 1 % cream Apply to skin and toenails daily for 12 weeks 4 Active diclofenac (VOLTAREN) 1 % topical gel Apply 4 g topically 2 times daily. 4 Active fluticasone propion-salmete roL (ADVAIR DISKUS) 500-50 mcg/dose diskus inhaler Inhale 1 Puff into the lungs every 12 hours. Active gabapentin (NEURONTIN) 100 mg capsule Take one tablet three times a day for 10 days 2 Active mirtazapine (REMERON) 30 mg tablet Take 30 mg by mouth at bedtime. Active naloxone (Narcan) 4 mg/0.1 mL nasal spray by Nasal route. Acti ve omeprazole (PriLOSEC) [address] capsule Take 1 Capsule by mouth. 3 Active PARoxetine (PAXIL) 20 mg tablet Take 20 mg by mouth every morning. Active tolnaftate (TINACTIN) 1 % external solution Apply topically to toenails 4 Active ciclopirox (LOPROX) 0.77 % gel Apply topically 2 (two) times a day. 45 g 5 02/14/20 25 Active Hospital, Clinic, or Other Facility Administered Medication Ordered Dose Route Frequency Start Date End Date Status lidocaine (PF) (XYLOCAINE-MPF) 1 % injection 0.5 mLIndications:Planta r fascial fibromatosis .5 mL inj Once PRN Procedure 11/15/2024 11/15/2024 Ended triamcinolone acetonide (KENALOG-40) 40 mg/mL injection 20 mgIndications:Planta r fascial fibromatosis 20 mg IAtc Once PRN Procedure 11/15/2024 11/15/2024 Ended Encounters Date Type Department Care Team Description 11/15/2024 1:00 PM EDT Office Visit Orthopedic Surgery [address] [address] Keith Orourke, DPM Dermatophytosis of nail (Primary Dx); Plantar fascial fibromatosis; Tinea pedis of both feet from Last 3 Months Medical History Medical History Date Comments [place] [place] [facility] [place] DX:[facility] ([facility] Hx of cholecystectomy DX:Hx of c holecystectomy Tobacco abuse DX:Tobacco abuse Fibroid DX:Fibroid Substance abuse [place] [place] [facility] [place] DX:Substance abuse ([facility]) Spina bifida occulta DX:Spina bi fida occulta PTSD (post-traumatic stress disorder) DX:PTSD (post-traumatic stress disorder) Hyperlipidemia DX:Hyperlipidemi a COPD (chronic obstructive pu lmonary disease) [place] [place] [facility] [place] DX:COPD (chronic o bstructive pulmonary disease) ([facility]) COPD exacerbation [place] [place] [facility] [place] DX:COPD exacerbation ([facility]) Uterine prolapse DX:Uterine prol apse Burning with urination DX:Burnin g with urination Vaginal discharge DX:Vaginal dis charge Vaginitis DX:Vaginitis Vulvovaginitis DX:Vulvovaginiti s Chronic lower back pain DX:Chron ic lower back pain; COMMENT: h/o herniation l4/5 Social History Tobacco Use Types Packs/Day Years Used Date Smoking Tobacco: Every Day Smokeless Tobacco: Never Alcohol Use Standard Drinks/Week Comments Yes 0 (1 standard drink = 0.6 oz pur e alcohol) Comments Unknown Sex and Gender Information Value Date Recorded Sex Assigned at Not on file Legal Sex Female 6:16 AM EST Gender Identity Not on file Sexual Orientation Not on file Obstetrics History Last Filed Vital Signs Vital Sign Reading Time Taken Comments Blood Pressure - - Pulse - - Temperature - - Respiratory Rate - - Oxygen Saturation - - Inhaled Oxygen Concentration - - Weight 88 kg (194 lb) 08/15/2024 12:49 PM EST Height 167.6 cm (5' 5.98 ) 08/15/2024 12:[address] Body Mass Index 31.33 08/15/2024 12:49 PM EST Plan of Treatment Upcoming Encounters Date Type Department Care Team (Late st Contact Info) Description 02/15/2025 1:00 PM EDT Office Visit Orthopedic Surgery - [place] [id number] [address] Keith Orourke, DPM [address] [address] Health Maintenance Due Date Last Done Comments Breast Cancer Screening 1970 Pneumococcal Vaccine: 50+ Years (2 of 2 - PCV) 05/31/2018 05/31/2017 Pneumococcal Vaccine: Pediatrics (0 to 5 Years) and At-Risk Patients (6 to 64 Years) (2 of 2 - PCV) 05/31/2018 05/31/2017 Cholesterol Screening (Lipid Panel) 05/18/2022 Colorectal Cancer Screening: Colonoscopy 05/18/2022 Hepatitis C Screening 05/18/2022 Social Influencers of Health Screening 05/18/2022 COVID-19 Vaccine ( season) 2024 09/10/2023, 06/12/2021, 09/21/2020, Additional history exists Cervical Cancer Screening: Pap Smear 02/27/2024 02/26/2021 Hypertension/CHF/CAD Annual BMP Blood Test 11/15/2024 Depression Screening 02/10/2025 02/11/2024 Influenza Vaccine (#1) 2025 , 08/18/2018, 03/19/2017, Additional history exists DTaP,Tdap,and Td Vaccines (4 - Td or Tdap) 05/28/2027 05/28/2017, 02/24/2013, 04/19/2009 Hepatitis B Vaccines Completed 07/21/2006, 03/17/2006, 02/04/2006 Hepatitis A Vaccines Completed 08/18/2018, 07/21/2006, 02/04/2006 HIV Screening Completed 09/09/2022 Zoster Vaccines Completed 09/25/2022, 06/30/2022 HIB Vaccines Aged Out No longer eligi ble based on patient's age to complete this topic HPV Vaccines Aged Out No longer eligi ble based on patient's age to complete this topic IPV Vaccines Aged Out No longer eligi ble based on patient's age to complete this topic MMR Vaccines Aged Out No longer eligi ble based on patient's age to complete this topic Meningococcal ACWY Vaccine Aged Out N o longer eligible based on patient's age to complete this topic Meningococcal B Vaccine Aged Out No l onger eligible based on patient's age to complete this topic RSV Immunization Patients Under 20 months Aged Out No longer eligible based on patient's age to complete this topic Varicella Vaccines Aged Out No longer eligible based on patient's age to complete this topic Procedures Procedure Name Priority Date/Time Associated Diagnosis Comments INJECTION TENDON OR LIGAMENT Routine 11/15/2024 1:00 PM EDT Plantar fascial fibromatosis from Last 3 Months Results * Injection tendon or ligament (11/15/2024 1:00 PM EDT) Keith Webber DPM - 11/15/2024 1:00 PM EDT Keith Orourke DPM 11/15/2024 5:50 PM Injection tendon or ligament Indications: pain Details: 25 G needle Medications: 0.5 mL lidocaine (PF) 1 %; 20 mg triamcinolone acetonide 40 mg/mL Informed Consent: Site: Foot ligament tendon us Keith Orourke DPM IN CLINIC/BEDSIDE ORDERAB LES Final Result from Last 3 Months Insurance MEDICA[place] - [place] Care Teams [place] Program Coordinator Relationship Specialty Start Date End Date Teodoro Hubbard MD [address] [place] [address] [place] [address] PCP - General Internal Medicine 06/21/20
== END 2024-12-14 16:45 | disposition home or self-care (01) ==
LOC: HO.LNP 16:44
DX: R30.0 Dysuria (principal)
CPT/HCPCS: 87086

== ENCOUNTER 2024-12-20 11:01 | Outpatient (REF) | payer MEDICAID, SELFPAY ==
--- OUTSIDE RECORDS SUMMARY | 2024-12-20 12:09 | XMS_ITS | Data Portability ---
Author Organization [place] - [facility], Allergy Address 100 [facility] [address] [place] [address] Care Team Providers Care Stone Fabricator Name Role Phone ALLYSON BLOOD Primary Care [...] her omeprazole and follow up with her forestry extension specialist as scheduled. Not available 06/03/2024 16:10:42 Plan of Treatment Reminders Order Date Submit Date Provider Last Modified By Organization Details Last Modified Time Details Appointments Establish ed 15 2024 01:15P M MARV VELIZ MD Not available Not available Not available Lab None recorded. Referral None recorded. Procedures None recorded. Surgeries None recorded. Imaging barium swallow study 2023 024 [facility] Radiology (Scheduling, Multiplte Sites), [address] [place], [address], 02/18/2024 11:57:35 Medication Orders None recorded. Patient TargetsNo targets recorded. Patient InstructionsNo instructions recorded. Reason for Referral None Reported. Results Created Date Observation Date Name Description Value Unit Range Abnormal Flag Note LastModifiedBy Organization Detail LastModifiedTime 02/18/20 24 02/18/2024 timoteo ferrer carolynn study No observ ation record ed. [facility] [address] [place], [address], 06/03/2024 15:56:21 Result Notes None recorded. Problems Name Problem SNOMED Code Status Onset Date Resolution Date Notes Provider Name and Address Organization Details Recorded Time Allergic rhinitis 05989628 Active 2015 Other allergic rhinitis; Note: Date Diagnosed: 01/18/2016 2:02 PM (J30.89) Not Available [facility] 4 02:18:37 Bleeding from nose 644786585 Active 2021 Epistaxis; Note: Date Diagnosed: 05/16/2022 1:39 PM (R04.0) Not Available [facility] 4 02:18:30 Nasal congestio n 19941675 Active 2017 Nasal congestion ; Note: Date Diagnosed: 11/02/2017 1:30 PM (R09.81) Not Available [facility] 4 02:19:20 Hypertrop hy of nasal turbinate s 70521275 Active 2017 Hypertroph y of nasal turbinates ; Note: Date Diagnosed: 11/02/2017 4:08 PM (J34.3) Not Available [facility] 4 02:18:41 Dysphagia 57911779 Active 2023 GORDON GENAO MD [address] [place] [address], [place], [address] , [facility] - [facility] 4 11:07:46 Feeling of lump in throat 790958475 Active 2023 GORDON GENAO MD [address] [facility],[place] [address], [facility] [place], [address] , [facility] 4 11:07:48 Gastroeso phageal reflux disease without esophagit is 498643589 Active 2023 ZANDRA CHURCHILL PA-C [address] [facility],[place] [address], [place], [address] , [facility] 4 16:06:27 Problem Notes None recorded. Procedures Surgical History Date Name Laterality Status Provider Name and Address Organization Details Recorded Time 01/20/20 24 Fiberoptic Laryngoscopy (Comprehensive) completed GORDON LEACH MD [address] [facility], [place], [address], [facility] 01/20/2024 11:09:28 Imaging Results None recorded. Procedure Notes None recorded. Medical Equipment None Reported. Allergies Allergen ID Allergen Name Allergen Category Reaction Reaction Severity Criticality Documentation Date Start Date Code Code System Note Provider Name and Address Organization Details Recorded Time 13489 penicilli n V potassium medicatio n other Not available Not available 10/27/202323980 5 RxNorm React ion: unkno wn, unspe cifie d;; Not Available [facility] 4 00:53:20 Medications Name Sig Start Date Stop Date Status Note LastModified by Organization Details LastModified Time clonidine HCl 0.1 mg tablet TAKE 1 TABLET BY MOUTH TWICE A DAY NEEDED DO NOT TAKE PRAZOSIN active Not Available Not Available No t Available acetamino phen 325 mg tablet active Medicati on ID: [id number] B rand Name: acetamin ophen Se nd [...] nebulizat ion 05/16 completed Medicati on ID: 952338 D uration Value: 8 Brand Name: albutero [...] 100 mg tablet active Medicati on ID: 673566 B rand Name: quetiapi ne Send Method: [...] mg tablet 05/16 completed Medicati on ID: [id number] D uration Value: 30 Brand Name: dicyclom ine Send Method: E-Prescr ibed Sub s Allowed: subs OK Speci al Instruct ion: TOME LILIA TABLETA POR VIA ORAL CUATRO VECES AL JANELL ...30 MINUTES PRIOR TO MEALS AND AT BEDTIME Medicati onGeneri cName: dicyclom ine Not Available Not Available Not Available mirtazapi ne 30 mg tablet active Medicati on ID: 962310 B rand Name: mirtazap ine Send Method: E-Prescr ibed Sub s Allowed: subs OK Speci al Instruct ion: TAKE 1 TABLET BY MOUTH EVERYDAY AT BEDTIME Medicati onGeneri cName: mirtazap ine Not Available Not Available Not Available trazodone 150 mg tablet 05/16 completed Medicati on ID: [id number] D uration Value: 30 Brand Name: trazodon [...] for inhalatio n active Medicati on ID: 906795 B rand Name: Advair Diskus S end [...] 25 mg tablet active Medicati on ID: 994692 B rand Name: hydroxyz ine HCl Send [...] as directed 05/16 completed Medicati on ID: [id number] P heidi [place] By Name: GENNY Rodriguez [...] disintegr ating tablet active Medicati on ID: 373189 B rand Name: beverly walter Send Method: [...] a day 2017 active Medicati on ID: 491416 D uration Value: 120 Prescri bed By Name: GNENY Rodriguez nd Name: fluticas one Send Method: [...] tablet,de layed release active Medicati on ID: 646454 B rand Name: acampros ate Send Method: [...] Updated DateTime 06/03/2024 167.64 cm 24.2 kg/m2 59893.86 g Bonny Ramirez [place] [facility] 06/03/2024 15:46:51 Social History None recorded. Functional Status None recorded. Mental Status None recorded. Family History Nothing Reported. Medical History No medical history recorded. Gynecological HistoryNo gynecological history recorded. Obstetrics History GPAL:G 0 P 0 0 0 0 Past Encounters Encounter ID Performer Location Encounter Start Date Encounter Closed Date Diagnosis/Indication Diagnosis SNOMED-CT Code Diagnosis ICD10 Code Diagnosis Note [id number] GORDON GENAO MD [facility] [address] [place] [address] 01/20/2024 10:07:50 01/20/2024 11:10:51 Dysphagia 76419826 R13.10 Feeling of lump in throat 008938288 R09.89 [id number] ZANDRA CHURCHILL PA-C [facility] 100 [place] [address] 06/03/2024 15:31:06 06/03/2024 16:03:09 Feeling of lump in throat 396607559 R09.89 Dysphagia 59707839 R13.1 0 Gastroesop hageal reflux disease without esophagitis 435268592 K21.9 Health Concerns Section Related Observation LastModified by Organization Detai ls LastModified Time None Recorded Concern Status LastModified by Organization Details LastModified Time None Recorded Advance Directives Directive None Recorded Payers Insurance Date Sequence Insurance Name Policy Number Policy Dominguez Covered Member ID Dominguez Member ID Guarantor Name 06/02/2024 1 [place] [facility] Bianca Ward [id number] Bianca Ward 12/09/2024 1 [place] [facility] Bianca D Ed [id number] Bianca Ward Notes Date Note Type Note [...] scan of neck performed but Rakel contacted [facility] and they said none was in her chart GORDON LEACH MD [address] [place] [address], [place], [address], [place] [facility] 01/20/2024 16:01:40 06/03/2024 text/html 54 year old [...] with nonobstructive cricopharyngeal bar. GORDON LEACH MD [address] [place] [address], [address], [place] [facility] 06/03/2024 16:46:02 OBGyn Episode No OBEpisode recorded.
--- OUTSIDE RECORDS SUMMARY | 2024-12-20 12:09 | XMS_ITS | Encounter Summary ---
Author Organization [employer] Address [address] [facility] 7[address] [place] [address] Care Team Providers Care Overhauler Helper Name Role Phone Teodoro Bone MD Primary Care Provide r Ron Constantino RN Unavailable [phone] Bianca Lewis Unavailable Reason for Visit * Reason Comments Med Refill Encounter Details Date Type Department Care Team (Late st Contact Info) Description 10/14/2024 Refill [facility] [address] [place], [place] [phone] Teodoro Bone MD [address] [place], [place] [phone] Seasonal allergies Social History Tobacco Use Types Packs/Day Years Used Date Smoking Tobacco: Some Days Cigarettes 0.3 35.5 Started: 1989 Passive Smoke Exposure: Current Smokeless Tobacco: Never Comments:5 a day Alcohol Use Standard Drinks/Week Comments Never 0 (1 standard drink = 0.6 oz pur e alcohol) Depression Answer Date Recorded Patient Health Questionnaire-9 Score 24 02/11/2024 Patient Health Questionnaire-9 Score 24 02/11/2024 Last PHQ-9: Questionnaire Data Not on file 0 02/11/2024 Housing Stability Answer Date Recorded What is your housing situation today? I have miryam monahan 02/11/[address] you li ve. Do you have problems with any of the following? None of the above 02/11/2024 Food Insecurity Answer Date Recorded Within the past 12 months, y ou worried that your food would run out before you got money to buy more: Never True 02/11/2024 Within the past 12 months,th e food you bought just didn't last and you didn't have enough money to get more: Never True Transportation Answer Date Recorded In the past 12 months, has l ack of transportation kept you from medical appts, meetings, work or from getting things needed for daily living? No 02/11/2024 Utilities Answer Date Recorded In the past 12 months, has t he [employer], gas, oil or water company threatened to shut off services in your home? No 02/11/2024 Depression Answer Date Recorded Patient Health Questionnaire-2 Score 6 02/11/2024 Internet Access Answer Date Recorded Internet Access Q1 Yes 02/15/2024 Internet Access Q2 Not on file 02/15/2024 Comments Unknown Sex and Gender Information Value Date Recorded Sex Assigned at Female 04/14/2022 10:18 AM EDT Legal Sex Female 10:18 AM EDT Gender Identity Female 04/14/2022 10:18 AM EDT Sexual Orientation Choose not to disclose 2021 10:18 AM EDT documented as of this encounter Plan of Treatment Upcoming Encounters Date Type Department Care Team (Late st Contact Info) Description 12/22/2024 3:15 PM EDT Office Visit [facility] [address] [place] [address] Dalton Leslie CNP [address] [place] [address] 03/09/2025 1:15 PM EDT Office Visit [facility] [address] [place] [address] Teodoro Bone MD [address] [place] [phone] documented as of this encounter Visit Diagnoses Diagnosis Seasonal allergies Allergic rhinitis, cause unspecified documented in this encounter Additional Health Concerns Assessment Noted Time PHQ-9 Depression Total Score: 24 024 1:52 PM EDT documented as of this encounter Care Teams Overhauler Helper Relationship Specialty Start Date End Date Teodoro Bone MD [address] [place] [address] PCP - General Internal Medicine 01/23/17 Ron Constantino RN [address] [place] [address] Registered Nurse Family Medicine 12/12/24 Bianca Lewis 12/12/24 Verenice Medrano Psychological AssistantBrusher Hand 09/09/23 documented as of this encounter
--- OUTSIDE RECORDS SUMMARY | 2024-12-20 12:09 | XMS_ITS | Clinical Summary ---
Author Organization 175 [facility] Address [address] [place] [address] Phone Care Team Providers Care Sand Wheeler Name Role Phone Teodoro Hubbard MD Primary [...] day. 45 g 5 02/14/20 25 Active Encounters Date Type Department Care Team Description 11/15/2024 1:00 PM EDT Office Visit Orthopedic Surgery [address] [address] Keith Orourke, DPM Dermatophytosis of nail (Primary Dx); Plantar fascial fibromatosis; Tinea pedis of both feet from Last 3 Months Medical History Medical History Date Comments [place] [place] [facility] [place] DX:Seizure ([facility]) Hx of cholecystectomy DX:Hx of c holecystectomy Tobacco abuse DX:Tobacco abuse Fibroid DX:Fibroid Substance abuse [place] [place] [facility] [place] DX:Substance abuse ([facility]) Spina bifida occulta DX:Spina bi fida occulta PTSD (post-traumatic stress disorder) DX:PTSD (post-traumatic stress disorder) Hyperlipidemia DX:Hyperlipidemi a COPD (chronic obstructive pu lmonary disease) [place] [place] [facility] [place] DX:COPD (chronic o bstructive pulmonary disease) ([facility]) COPD exacerbation [place] [place] [facility] [place] DX:COPD exacerbation ([facility]) Uterine prolapse DX:Uterine prol apse Burning with [...] PM EDT Office Visit Orthopedic Surgery - [place] [address] [address] Keith Orourke, DPM [address] [address] Health Maintenance Due Date Last Done Comments [...] Screening 02/10/2025 02/11/2024 Influenza Vaccine (#1) 2025 3, 08/18/2018, 03/19/2017, Additional history exists DTaP,Tdap,and Td [...] mg/mL Informed Consent: Site: Foot ligament tendon Keith Orourke DPM IN CLINIC/BEDSIDE ORDERAB LES Final Result from Last 3 Months Insurance MEDICAID - [place] Care Teams Sand Wheeler Relationship Specialty Start Date End Date Teodoro Hubbard MD [address] [place] [address] [place] [address] PCP - General Internal Medicine 06/21/20
[2024-12-20 12:21] LABS: MANUAL DIFF FLAG NO
[2024-12-20 12:23] LABS: Hematocrit 44.2 % (37.0-47.0); Hemoglobin 15.0 g/dl (12.0-16.0); Imm Gran Abs Auto 0.05 X10*3/uL (0.00-0.03); Imm Gran Pct Auto 0.9 % (0.0-0.4); Lymphocytes Absolute Auto 2.1 X10*3/uL (1.2-4.9); Mean Corpuscular HGB Conc 33.9 g/dl (31.0-35.0); Mean Corpuscular Hemoglobin 29.7 pg (27.0-33.0); Mean Corpuscular Volume 87.5 fL (80.0-98.0); NRBC Abs Auto 0.000 X10*3/uL (0.0-0.012); NRBC Pct Auto 0.0 /100WBC (0.0-0.2); Platelet Count 340 X10*3/uL (160-400); Red Blood Count 5.05 X10*6/uL (4.20-5.50); White Blood Count 5.4 X10*3/uL (4.8-10.8)
[2024-12-20 12:48] LABS: Alanine Aminotransferase 77 U/L (0-31); Albumin Level 4.2 g/dL (3.5-5.0); Alkaline Phosphatase 168 U/L (39-117); Anion Gap 12 (12-20); Aspartate Amino Transferase 35 U/L (5-31); Blood Urea Nitrogen 5 mg/dL (9-16); Calcium 9.6 mg/dL (8.4-10.2); Carbon Dioxide 29 mmol/L (22-29); Chloride 101 mmol/L (96-108); Cholesterol 243 mg/dL (<200); Estimated Glomerular Filt Rate > 60; HDL Cholesterol 48 mg/dL (>40); Potassium 3.2 mmol/L (3.3-5.1); Sodium 139 mmol/L (135-145); Total Protein 7.2 g/dL (6.5-8.0); Triglycerides 130 mg/dL (<150)
[2024-12-20 14:31] LABS: Bacterial Vaginosis PCR NEGATIVE (Negative); Candida Group PCR NOT DETECTED (Not Detect); Candida glab krusei PCR NOT DETECTED (Not Detect); Trichomonas vaginalis PCR NOT DETECTED (Not Detect)
== END 2024-12-20 11:02 | disposition home or self-care (01) ==
LOC: HO.HHCL 11:01
PROVIDERS: Internal Medicine; PCP Internal Medicine; Visit Provider Internal Medicine
DX: I10 Essential (primary) hypertension (principal); E78.2 Mixed hyperlipidemia; R30.0 Dysuria; N30.90 Cystitis, unspecified without hematuria; N89.8 Other specified noninflammatory disorders of vagina
CPT/HCPCS: 36415; 80053; 80061; 81515; 85025; 87086

== ENCOUNTER 2024-12-29 15:05 | Outpatient (REF) | payer MEDICAID, SELFPAY ==
--- OUTSIDE RECORDS SUMMARY | 2024-12-29 15:50 | XMS_ITS | Encounter Summary ---
Author Organization [employer] Address [address] [facility] 7t [place] [address] Care Team Providers Care Clothes Presser Name Role Phone Teodoro Bone MD Primary Care Provide r Ron Constantino RN Unavailable [phone] Bianca Lewis Unavailable Reason for Visit * Reason Comments Med Refill Encounter Details Date Type Department Care Team (Late st Contact Info) Description 10/14/2024 Refill [facility] [address] [place], [place] [phone] Teodoro Bone MD [address] [place], [place] [phone] Seasonal allergies Social History Tobacco Use Types [...] the past 12 months, has t he [employer], gas, oil or water company threatened to [...] Care Team (Late st Contact Info) Description 03/09/2025 1:15 PM EDT Office Visit [facility] [address] [place] [address] Teodoro Bone MD [address] [place] [address] documented as of this encounter Visit Diagnoses Diagnosis Seasonal allergies Allergic rhinitis, cause unspecified documented in this encounter Additional Health Concerns Assessment Noted Time PHQ-9 Depression Total Score: 24 024 1:52 PM EDT documented as of this encounter Care Teams Clothes Presser Relationship Specialty Start Date End Date Teodoro Bone MD [address] [place], [place] [phone] PCP - General Internal Medicine 01/23/17 Ron Constantino RN [address] [place] [address] Registered Nurse Family Medicine 12/12/24 Bianca Lewis 12/12/24 Verenice Medrano Intelligence Group SupervisorMechanical Engineering Director 09/09/23 documented as of this encounter
--- OUTSIDE RECORDS SUMMARY | 2024-12-29 15:50 | XMS_ITS | Clinical Summary ---
Author Organization [facility] Address [address] [place] [address] Phone Care Team Providers Care [place] Auditor Name Role Phone Teodoro Hubbard MD Primary [...] 1:00 PM EDT Office Visit Orthopedic Surgery [address] [address] Keith Orourke, DPM Dermatophytosis of nail (Primary Dx); Plantar fascial fibromatosis; Tinea pedis of both feet from Last 3 Months Medical History Medical History Date Comments Seizure ([facility] V24, [facility] V28) DX:Seizure ([facility]) Hx of cholecystectomy DX:Hx of c holecystectomy Tobacco abuse DX:Tobacco abuse Fibroid DX:Fibroid Substance abuse ([facility] V24 , [facility] V28) DX:Substance abuse ([facility]) Spina bifida occulta DX:Spina bi fida occulta PTSD (post-traumatic stress disorder) DX:PTSD (post-traumatic stress disorder) Hyperlipidemia DX:Hyperlipidemi a COPD (chronic obstructive pu lmonary disease) ([facility] V24, [facility] V28) DX:COPD (chronic o bstructive pulmonary disease) ([facility]) COPD exacerbation ([facility] V 24, [facility] V28) DX:COPD exacerbation ([facility]) Uterine prolapse DX:Uterine prol apse Burning with [...] PM EDT Office Visit Orthopedic Surgery - [place] [address] [address] Keith Orourke, DPM [address] [address] Health Maintenance Due Date Last Done Comments Breast Cancer Screening 1970 Pneumococcal Vaccine: 50+ Years (2 of 2 - PCV) 05/31/2018 05/31/2017 Cholesterol Screening (Lipid Panel) 05/18/2022 Colorectal Cancer Screening: Colonoscopy 05/18/2022 Hepatitis C Screening 05/18/2022 Social Influencers of Health Screening 05/18/2022 COVID-19 Vaccine ( season) 2024 09/10/2023, 06/12/2021, 09/21/2020, Additional history exists Cervical Cancer Screening: Pap Smear 02/27/2024 02/26/2021 Depression Screening 06/15/2024 Hypertension/CHF/CAD Annual BMP Blood Test 11/15/2024 Influenza Vaccine (#1) 2025 3, 08/18/2018, 03/19/2017, [...] from Last 3 Months Insurance MEDICAID - [place] Care Teams [place] Aud[place] Relationship Specialty Start Date End Date Teodoro Hubbard MD [address] [place] [address] [place] [address] PCP - General Internal Medicine 06/21/20
--- OUTSIDE RECORDS SUMMARY | 2024-12-29 15:51 | XMS_ITS | Data Portability ---
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 Not available 06/03/2024 16:10:42 Plan of Treatment Reminders Order Date Submit Date Provider Last Modified By Organization Details Last Modified Time Details Appointments Establish ed 15 2024 01:15P M MARV VELIZ MD Not available Not available Not available Lab None recorded. Referral None recorded. Procedures None recorded. Surgeries None recorded. Imaging barium swallow study 2023 024 [facility] (Scheduling, Multiplte Sites), [address] [place], [address], 02/18/2024 11:57:35 Medication Orders None recorded. Patient TargetsNo targets recorded. Patient InstructionsNo instructions recorded. Reason for Referral None Reported. Results Created Date Observation Date Name Description Value Unit Range Abnormal Flag Note LastModifiedBy Organization Detail LastModifiedTime 02/18/20 24 02/18/2024 timoteo ferrer carolynn study No observ ation record ed. [facility] [address] [place], [address], 06/03/2024 15:56:21 Result Notes None recorded. Problems Name Problem SNOMED Code Status Onset Date Resolution Date Notes Provider Name and Address Organization Details Recorded Time Allergic rhinitis 83905768 Active 2015 Other allergic rhinitis; Note: Date Diagnosed: 01/18/2016 2:02 PM (J30.89) Not Available [facility] 4 02:18:37 Nasal congestio n 49726974 Active 2017 Nasal congestion ; Note: Date Diagnosed: 11/02/2017 1:30 PM (R09.81) Not Available [facility] 4 02:19:20 Hypertrop hy of nasal turbinate s 03566408 Active 2017 Hypertroph y of nasal turbinates ; Note: Date Diagnosed: 11/02/2017 4:08 PM (J34.3) Not Available [facility] 4 02:18:41 Bleeding from nose 439990261 Active 2021 Epistaxis; Note: Date Diagnosed: 05/16/2022 1:39 PM (R04.0) Not Available [facility] 4 02:18:30 Dysphagia 49435800 Active 2023 GORDON GENAO MD [address] [place] [address], [place], [address] , [facility] - [facility] 4 11:07:46 Feeling of lump in throat 323668588 Active 2023 GORDON GENAO MD [address] [facility] [address], [place], [address] , [facility] 4 11:07:48 Gastroeso phageal reflux disease without esophagit is 666831242 Active 2023 ZANDRA CHURCHILL PA-C [address] [facility],[place] [address], [place], [address] , [facility] 4 16:06:27 Problem Notes None recorded. Procedures Surgical History Date Name Laterality Status Provider Name and Address Organization Details Recorded Time 01/20/20 24 Fiberoptic Laryngoscopy (Comprehensive) completed GORDON LEACH MD [address] [facility], [place], [address], [facility] 01/20/2024 11:09:28 Imaging Results None recorded. Procedure Notes None recorded. Medical Equipment None Reported. Allergies Allergen ID Allergen Name Allergen Category Reaction Reaction Severity Criticality Documentation Date Start Date Code Code System Note Provider Name and Address Organization Details Recorded Time 77982 penicilli n V potassium medicatio n other Not available Not available 10/27/202366397 5 RxNorm React ion: unkno wn, unspe cifie d;; Not Available [facility] 4 00:53:20 Medications Name Sig Start Date Stop Date Status Note LastModified by Organization Details LastModified Time clonidine HCl 0.1 mg tablet TAKE 1 TABLET BY MOUTH TWICE A DAY NEEDED DO NOT TAKE PRAZOSIN active Not Available Not Available No t Available acetamino phen 325 mg tablet active Medicati on ID: 366052 B rand Name: acetamin ophen Se nd [...] nebulizat ion 05/16 completed Medicati on ID: 209129 D uration Value: 8 Brand Name: albutero [...] 100 mg tablet active Medicati on ID: 970550 B rand Name: quetiapi ne Send Method: [...] mg tablet 05/16 completed Medicati on ID: [id number] D uration Value: 30 Brand Name: dicyclom ine Send Method: E-Prescr ibed Sub s Allowed: subs OK Speci al Instruct ion: TOME LILIA TABLETA POR VIA ORAL CUATRO VECES AL JANELL ...30 MINUTES PRIOR TO MEALS AND AT BEDTIME Medicati onGeneri cName: dicyclom ine Not Available Not Available Not Available mirtazapi ne 30 mg tablet active Medicati on ID: 119869 B rand Name: mirtazap ine Send Method: E-Prescr ibed Sub s Allowed: subs OK Speci al Instruct ion: TAKE 1 TABLET BY MOUTH EVERYDAY AT BEDTIME Medicati onGeneri cName: mirtazap ine Not Available Not Available Not Available trazodone 150 mg tablet 05/16 completed Medicati on ID: 573551 D uration Value: 30 Brand Name: trazodon [...] for inhalatio n active Medicati on ID: 011690 B rand Name: Advair Diskus S end [...] 25 mg tablet active Medicati on ID: 550964 B rand Name: hydroxyz ine HCl Send [...] as directed 05/16 completed Medicati on ID: [id number] P heidi and[place] By Name: GENNY Rodriguez [...] disintegr ating tablet active Medicati on ID: 309999 B rand Name: beverly walter Send Method: [...] a day 2017 active Medicati on ID: 962338 D uration Value: 120 Prescri bed By [...] tablet,de layed release active Medicati on ID: 637552 B rand Name: acampros ate Send Method: [...] Updated DateTime 06/03/2024 167.64 cm 24.2 kg/m2 57718.86 g Bonny Ramirez [place] - [facility] 06/03/2024 15:46:51 Social History None recorded. Functional Status None recorded. Mental Status None recorded. Family History Nothing Reported. Medical History No medical history recorded. Gynecological HistoryNo gynecological history recorded. Obstetrics History GPAL:G 0 P 0 0 0 0 Past Encounters Encounter ID Performer Location Encounter Start Date Encounter Closed Date Diagnosis/Indication Diagnosis SNOMED-CT Code Diagnosis ICD10 Code Diagnosis Note [id number] GORDON GENAO MD [facility] [address] [place] [address] 01/20/2024 10:07:50 01/20/2024 11:10:51 Dysphagia 11997498 R13.10 Feeling of lump in throat 401537458 R09.89 [id number] ZANDRA CHURCHILL PA-C [facility] [address] [place] [address] 06/03/2024 15:31:06 06/03/2024 16:03:09 Feeling of lump in throat 748066242 R09.89 Dysphagia 22214364 R13.1 0 Gastroesop hageal reflux disease without esophagitis 673785029 K21.9 Health Concerns Section Related Observation LastModified by Organization Detai ls LastModified Time None Recorded Concern Status LastModified by Organization Details LastModified Time None Recorded Advance Directives Directive None Recorded Payers Insurance Date Sequence Insurance Name Policy Number Policy Dominguez Covered Member ID Dominguez Member ID Guarantor Name 06/02/2024 1 [place] [facility] Bianca Ward [id number] Bianca Ward 12/09/2024 1 [place] [facility] Bianca D Ed [id number] Bianca Ward Notes Date Note Type Note [...] scan of neck performed but Rakel contacted [facility] and they said none was in her chart GORDON LEACH MD [address] [place] [address], [place], [address], [place] - [facility] 01/20/2024 16:01:40 06/03/2024 text/html 54 year [...] with nonobstructive cricopharyngeal bar. GORDON LEACH MD [address] [place] [address], [address], [place] - [facility] 06/03/2024 16:46:02 OBGyn Episode No OBEpisode recorded.
[2024-12-29 16:39] LABS: Alanine Aminotransferase 28 U/L (0-31); Albumin Level 4.8 g/dL (3.5-5.0); Alkaline Phosphatase 107 U/L (39-117); Anion Gap 11 (12-20); Aspartate Amino Transferase 19 U/L (5-31); Blood Urea Nitrogen 9 mg/dL (9-16); Calcium 9.4 mg/dL (8.4-10.2); Carbon Dioxide 29 mmol/L (22-29); Chloride 104 mmol/L (96-108); Estimated Glomerular Filt Rate > 60; Potassium 3.4 mmol/L (3.3-5.1); Sodium 141 mmol/L (135-145); Total Protein 7.5 g/dL (6.5-8.0)
[2024-12-29 19:32] LABS: Bacterial Vaginosis PCR NEGATIVE (Negative); Candida Group PCR NOT DETECTED (Not Detect); Candida glab krusei PCR NOT DETECTED (Not Detect); Trichomonas vaginalis PCR NOT DETECTED (Not Detect)
== END 2024-12-29 15:06 | disposition home or self-care (01) ==
LOC: HO.HHCL 15:05
PROVIDERS: PCP Internal Medicine; Referring Provider Advanced Practice Midwife; Visit Provider Internal Medicine
DX: I10 Essential (primary) hypertension (principal); N89.8 Other specified noninflammatory disorders of vagina; R30.0 Dysuria
CPT/HCPCS: 36415; 80053; 81515; 87086

== ENCOUNTER 2024-12-31 07:54 | Outpatient (REF) | payer MEDICAID, SELFPAY ==
--- NOTE | ~2024-12-31 | CT_ITS ---
EXAMINATION: CT ABDOMEN PELVIS WITHOUT IV CONTRAST HISTORY: rule out kidney stone COMPARISON: Comparison is made with a prior CT of the abdomen with contrast dated 05/15/2017. TECHNIQUE: CT scan of the abdomen and pelvis was performed without contrast using standard departmental protocol. Coronal and sagittal reformatted images were generated and reviewed. Oral contrast material was not administered per department protocol. This CT exam was performed with one or more of the following dose reduction techniques: automated exposure control, adjustment of the mA and/or kV according to patient size, use of iterative reconstruction technique. DLP: 410 mGy-cm FINDINGS: LOWER CHEST: The visualized lung bases are clear. There is no pleural effusion. CARDIOVASCULATURE: The heart is normal in size. There is no pericardial effusion. LIVER: The liver is normal in size and contour. The liver has an unremarkable unenhanced appearance. GALLBLADDER / BILE DUCTS: The gallbladder is surgically absent. There is no intra or extrahepatic biliary ductal dilatation. SPLEEN: The spleen is normal in size and has an unremarkable unenhanced appearance. PANCREAS: The pancreas has an unremarkable unenhanced appearance. ADRENAL GLANDS: Unremarkable. KIDNEYS/RETROPERITONEUM: No renal or ureteral calculi are identified. There is no hydronephrosis or hydroureter. Again seen is a 3.1 cm cyst in the interpolar region of the right kidney. LYMPH NODES: No retroperitoneal lymphadenopathy is identified in the abdomen or pelvis. VASCULATURE: The abdominal aorta is normal in caliber. MESENTERY/PERITONEUM: No free fluid. No masses. There is no free intraperitoneal gas. STOMACH: The stomach is unremarkable. SMALL BOWEL: The small bowel is normal in caliber. COLON: There is a moderate amount of stool throughout the colon. APPENDIX: Normal. URINARY BLADDER/PELVIC ORGANS: The urinary bladder is collapsed, limiting evaluation. The uterus has an unremarkable unenhanced appearance. The patient is status post bilateral tubal ligation. BONES / SOFT TISSUES: Soft tissue densities in the subcutaneous fat of the anterior abdominal wall are likely related to subcutaneous injections. The bones are intact. CT/CT abdomen pelvis wo IV con IMPRESSION: 1. No evidence of nephrolithiasis or ureteral obstruction. 2. Moderate amount of stool throughout the colon. Electronically signed by: Philip Aguilar MD 01/02/2025 07:11 AM EDT RP
== END 2024-12-31 07:55 | disposition home or self-care (01) ==
LOC: HO.CT 07:54
PROVIDERS: PCP Internal Medicine; Visit Provider Advanced Practice Midwife
DX: R10.9 Unspecified abdominal pain (principal)
CPT/HCPCS: 74176

== ENCOUNTER → 2024-12-31 07:55 | Outpatient (BNV) | payer MEDICAID, SELFPAY | PROVIDERS: PCP Internal Medicine; Visit Provider Radiology Diagnostic Radiology | DX: K56.41 Fecal impaction (principal) | CPT/HCPCS: 74176 ==

== ENCOUNTER 2025-03-09 14:21 | Outpatient (REF) | payer MEDICAID, SELFPAY ==
--- OUTSIDE RECORDS SUMMARY | 2025-03-09 13:15 | XMS_ITS | Encounter Summary ---
Author Organization [employer] Address [address] [facility] 7[address] [place] [address] Care Team Providers Care Cogn[facility] Bi Administrator Name Role Phone Teodoro Bone MD Primary Care Provide r Ron Constantino RN Unavailable [phone] Bianca Lewis Unavailable Reason for Referral * Consultation (Urgent) - Closed Specialty Diagnoses / Procedures Referred By Contmin t Referred To Contact Otolaryngology Diagnoses Abnormality of palate Teodoro Bone MD [address] [place] [address] Phone: tel: fax: [facility] [address] [facility] [address] [place], [place] Phone: tel: fax: Referral ID Status Reason Start Date Expiration Date V isits Requested Visits Authorized [id number] Closed Specialty Services Required 01/25/2025 01/25/2026 6 6 Scheduling Instructions Please refer back to Ear Nose and Throat surgeons, pt well known to their practice. Fax the report of CT done 03/03/2025 of her Neck Reason for Visit * Reason Comments Follow-up HTN Encounter Details Date Type Department Care Team ([facility] st Contact Info) Description 03/09/2025 1:15 PM EDT Office Visit [facility] [address] [place] [address] Teodoro Bone MD [address] [facility] [place] [address] Primary hypertension (Primary Dx); Mixed hyperlipidemia; TMJ tenderness, bilateral; Neck pain on left side; Abnormality of palate; Weight loss; Tinea; Sore throat Social History Tobacco Use Types Packs/Day Years Used Date Smoking Tobacco: Some Days Cigarettes 0.3 35.7 Started: 1989 Passive Smoke Exposure: Current Smokeless Tobacco: Never Comments:5 a day Alcohol Use Standard Drinks/Week Comments Never 0 (1 standard drink = 0.6 oz pur e alcohol) Depression Answer Date Recorded Patient Health Questionnaire-9 Score 9 01/05/2025 Patient Health Questionnaire-9 Score 9 01/05/2025 Last PHQ-9: Questionnaire Data Not on file 0 01/05/2025 Housing Stability Answer Date Recorded What is your housing situation today? I have miryam monahan 02/11/[address] you li ve. Do you have problems with any of the following? None of the above 02/11/2024 Food Insecurity Answer Date Recorded Within the past 12 months, y ou worried that your food would run out before you got money to buy more: Sometimes True 2024 Within the past 12 months,th e food you bought just didn't last and you didn't have enough money to get more: Sometimes True 01/03/2025 Transportation Answer Date Recorded In the past 12 months, has l ack of transportation kept you from medical appts, meetings, work or from getting things needed for daily living? No 02/11/2024 Utilities Answer Date Recorded In the past 12 months, has t he electric, gas, oil or water company threatened to shut off services in your home? No 02/11/2024 Depression Answer Date Recorded Patient Health Questionnaire-2 Score 3 01/05/2025 Internet Access Answer Date Recorded Internet Access Q1 Yes 02/15/2024 Internet Access Q2 Not on file 02/15/2024 Comments No Sex and Gender Information Value Date Recorded Sex Assigned at Female 04/14/2022 10:18 AM EDT Legal Sex Female 10:18 AM EDT Gender Identity Female 04/14/2022 10:18 AM EDT Sexual Orientation Choose not to disclose 2021 10:18 AM EDT documented as of this encounter Last Filed Vital Signs Vital Sign Reading Time Taken Comments Blood Pressure 138/82 03/09/2025 1:28 PM EDT Pulse 88 03/09/2025 1:10 PM EDT Temperature 36.9 C (98.5 F) 03/09/2025 1:10 PM EDT Respiratory Rate 20 03/09/2025 1:10 PM EDT Oxygen Saturation - - Inhaled Oxygen Concentration - - Weight 69.6 kg (153 lb 6.4 oz) 03/09/2025 1:10 P M EDT Height - - Body Mass Index 24.76 12/14/2024 2:54 PM EDT documented in this encounter Progress Notes * Teodoro Brown MD - 03/09/2025 1:15 PM EDT Images from the original note were not included. SUBJECTIVE Bianca Ward is a 54 y.o. female who presents for Follow-up (HTN). Pt is here for a follow up after she had a recent visit to the ER with c/o bilateral jaw pain Hypertension This is a chronic problem. Pertinent negatives include no chest pain, headaches or shortness of breath. Review of Systems Constitutional: Negative for fever. HENT: Negative for sore throat. Respiratory: Negative for cough and shortness of breath. Cardiovascular: Negative for chest pain. Gastrointestinal: Negative for abdominal pain. Neurological: Negative for headaches. Allergies[1] OBJECTIVE Vitals: 03/09/25 1310 03/09/25 1328 BP: (!) 140/100 138/82 Pulse: 88 Resp: 20 Temp: 98.5 ??F (36.9 ??C) TempSrc: Oral Weight: 153 lb 6.4 oz (69.6 kg) Physical Exam Vitals reviewed. Constitutional: Appearance: Normal appearance. HENT: Head: Normocephalic and atraumatic. Right Ear: External ear normal. Left Ear: External ear normal. Nose: Nose normal. Mouth/Throat: Mouth: Mucous membranes are moist. Eyes: Conjunctiva/sclera: Conjunctivae normal. Cardiovascular: Rate and Rhythm: Normal rate and regular rhythm. Pulmonary: Effort: Pulmonary effort is normal. Breath sounds: Normal breath sounds. Skin: General: Skin is warm. Neurological: Mental Status: She is alert. Mental status is at baseline. Assessment/Plan Problem List Items Addressed This Visit Primary hypertension - Primary Pt here for a follow up Blood pressure controlled Regimen: hydrochlorothiazide 12.5 mg po daily Most recent BMP Lab Results Component Value Date NA 141 12/29/2024 NA 139 12/20/2024 K 3.4 12/29/2024 K 3.2 (L) 12/20/2024 CL 104 12/29/2024 CL 101 12/20/2024 BUN 9 12/29/2024 BUN 5 (L) 12/20/2024 CREATININE 0.63 12/29/2024 CREATININE 0.62 12/20/2024 Pt was on Losartan 50 mg po daily. But tpt tells me she stopped it because she was having muscle pain associated with it Pt also tells me she is taking Clonidine Plan: Continue hydrochlorothiazide 12.5 mg po daily 3 month follow up Relevant Orders Comprehensive Metabolic Panel Hyperlipidemia Most recent lipid profile from: Lipids elevated Lab Results Component Value Date TRIG 130 12/20/2024 TRIG 106 04/14/2023 CHOL 243 (H) 12/20/2024 CHOL 194 04/14/2023 LDLCHOLCAL 169 (H) 12/20/2024 LDLCHOLCAL 127 (H) 04/14/2023 HDL 48 12/20/2024 HDL 46 04/14/2023 Previously she was on Lipitor but this was discontinued after pt c/o muscle pain. Pt has been evaluated by [facility] and despite this her Lipids went even higher. Pt was convinced that Rosuvastatin was causing her to loose weight so she stopped taking it. Pt is reluctant to try another medication Plan: Continue observation Given that pt is convinced that the medication is causing her to loose weight we will hold statins for now We might consider start Praluent if she changes her mind TMJ tenderness, bilateral Pt seen in the ER with c/o fever and bilateral jaw pain, for the most part work up was unrevealing with a negative HIV test and basic blood work Work up also included a CT of head and neck soft tissues that showed: 03/03/2025 Nonspecific enlargement, edema, and mucosal hyperenhancement involving the soft palate and uvula, probably infectious or inflammatory changes. No drainable abscess. Apparent elevation of the uvula, of uncertain significance. Underlying neoplastic lesion cannot be excluded. Recommend correlation with direct visualization and consider follow-up. Pt has been seen in the past by ENT I have placed a referral for her to go back and see ENT surgeons Pt today is finishing the course of antibiotics given to her in the ER Pt already scheduled to see her dentist as well Neck pain on left side Pt with previous c/o intermittent left sided neck pain with radiation to left arm for 2 months or so Etiology ? Cervical radiculopathy ? Vs CTS C-sine x-rays showed: Multilevel cervical spondylosis most notable at C5-C6. NCS upper extremities was negative 07/30/2023. MRI of the cervical spine done 11/07/2023 showed: Mild- to Moderate multilevel degenerative disc disease with loss of disc height and disc desiccation throughout the entire cervical spine C5-C6 disc osteophyte complex eccentric to the left. Mod to severe canal stenosis on the left., severe left foraminal narrowing C6-C7 disc osteophyte complex Mod to severe canal stenosis., and mod to severe bilateral foraminal narrowing Abnormality of palate [place] [facility] [place] jaw pain as part of her work up she had a CT of neck with IV contrast that showed: CT Head and Neck with IV contrast 03/03/2025 Nonspecific enlargement, edema, and mucosal hyperenhancement involving the soft palate and uvula, probably infectious or inflammatory changes. No drainable abscess. Apparent elevation of the uvula, of uncertain significance. Underlying neoplastic lesion cannot be excluded. Recommend correlation with direct visualization and consider follow-up. Pt was referred back to ENT for laryngoscopy Relevant Orders Referral to ENT CBC auto differential Weight loss Pt's weight has stabilized Previously she had a 23 lb weight loss since 02/2023 her weight is now 153 lbs Work up included CBC, CMP, CRP,ESR, TSH Previous HIV, Normal Pt is up to date on Her Pap and Colorectal Cancer screening as well as Mammogram. Abdominal CT 03/03/2025 Findings are consistent with fatty infiltration of the liver.Right renal cyst.Tracheal diverticulum. Pt was seen at [facility], last seen 09/17/2023 MRI Abdomen 06/06/2023 showed: Mild extra hepatic and mild central intrahepatic ductal dilatation, unchanged from 2020 MRI. Most likely representing post cholecystectomy changes. No evidence of cholelithiasis. Minimal focal ectasia the most proximal portion of the pancreatic duct is also unchanged from 2020 likely a chronic benign finding per radiologist Repeat Ct Chest and abdominal 03[place]03[place]2025 [place] [facility] [place]al divert[place]um. Pt's weight has fluctuated in the past. Sore throat Relevant Orders POCT Rapid Covid-19 WRIGHT ID NOW (Completed) POCT Rapid Influenza A WRIGHT ID NOW (Completed) POCT Rapid Influenza B WRIGHT ID NOW (Completed) POCT Rapid Strep A OSOM (Completed) Other Visit Diagnoses Tinea Relevant Medications clotrimazole-betamethasone (Lotrisone) cream Future Appointments Date Time Provider Department Center 05/30/2025 1:15 PM Teodoro Brown MD [facility] [1] Allergies Allergen Reactions Penicillins Swelling documented in this encounter Miscellaneous Notes * Assessment & Plan Note - Teodoro Brown MD - 03/09/2025 1:29 PM EDT Associated Problem(s): TMJ tenderness, bilateral Pt seen in the ER with c/o fever and bilateral jaw pain, for the most part work up was unrevealing with a negative HIV test and basic blood work Work up also included a CT of head and neck soft tissues that showed: 03/03/2025 Nonspecific enlargement, edema, and mucosal hyperenhancement involving the soft palate and uvula, probably infectious or inflammatory changes. No drainable abscess. Apparent elevation of the uvula, of uncertain significance. Underlying neoplastic lesion cannot be excluded. Recommend correlation with direct visualization and consider follow-up. Pt has been seen in the past by ENT I have placed a referral for her to go back and see ENT surgeons Pt today is finishing the course of antibiotics given to her in the ER Pt already scheduled to see her dentist as well * Assessment & Plan Note - Teodoro Brown MD - 03/09/2025 1:20 PM EDT Associated Problem(s): Weight loss Images from the original note were not included. Pt's weight has stabilized Previously she had a 23 lb weight loss since 02/2023 her weight is now 153 lbs Work up included CBC, CMP, CRP,ESR, TSH Previous HIV, Normal Pt is up to date on Her Pap and Colorectal Cancer screening as well as Mammogram. Abdominal CT 03/03/2025 Findings are consistent with fatty infiltration of the liver.Right renal cyst.Tracheal diverticulum. Pt was seen at [facility], last seen 09/17/2023 MRI Abdomen 06/06/2023 showed: Mild extra hepatic and mild central intrahepatic ductal dilatation, unchanged from 2020 MRI. Most likely representing post cholecystectomy changes. No evidence of cholelithiasis. Minimal focal ectasia the most proximal portion of the pancreatic duct is also unchanged from 2020 likely a chronic benign finding per radiologist Repeat Ct Chest and abdominal 03[place]03[place]20[place] [facility] [place]al divert[place]um. Pt's weight has fluctuated in the past. * Assessment & Plan Note - Teodoro Brown MD - 03/09/2025 1:17 PM EDT Associated Problem(s): Abnormality of palate Patient [place] [facility] [place]/o jaw pain as part of her work up she had a CT of neck with IV contrast that showed: CT Head and Neck with IV contrast 03/03/2025 Nonspecific enlargement, edema, and mucosal hyperenhancement involving the soft palate and uvula, probably infectious or inflammatory changes. No drainable abscess. Apparent elevation of the uvula, of uncertain significance. Underlying neoplastic lesion cannot be excluded. Recommend correlation with direct visualization and consider follow-up. Pt was referred back to ENT for laryngoscopy * Assessment & Plan Note - Teodoro Brown MD - 03/09/2025 1:12 PM EDT Associated Problem(s): Neck pain on left side Pt with previous c/o intermittent left sided neck pain with radiation to left arm for 2 months or so Etiology ? Cervical radiculopathy ? Vs CTS C-sine x-rays showed: Multilevel cervical spondylosis most notable at C5-C6. NCS upper extremities was negative 07/30/2023. MRI of the cervical spine done 11/07/2023 showed: Mild- to Moderate multilevel degenerative disc disease with loss of disc height and disc desiccation throughout the entire cervical spine C5-C6 disc osteophyte complex eccentric to the left. Mod to severe canal stenosis on the left., severe left foraminal narrowing C6-C7 disc osteophyte complex Mod to severe canal stenosis., and mod to severe bilateral foraminal narrowing * Assessment & Plan Note - Teodoro Brown MD - 03/09/2025 1:09 PM EDT Associated Problem(s): Hyperlipidemia Most recent lipid profile from: Lipids elevated Lab Results Component Value Date TRIG 130 12/20/2024 TRIG 106 04/14/2023 CHOL 243 (H) 12/20/2024 CHOL 194 04/14/2023 LDLCHOLCAL 169 (H) 12/20/2024 LDLCHOLCAL 127 (H) 04/14/2023 HDL 48 12/20/2024 HDL 46 04/14/2023 Previously she was on Lipitor but this was discontinued after pt c/o muscle pain. Pt has been evaluated by [facility] and despite this her Lipids went even higher. Pt was convinced that Rosuvastatin was causing her to loose weight so she stopped taking it. Pt is reluctant to try another medication Plan: Continue observation Given that pt is convinced that the medication is causing her to loose weight we will hold statins for now We might consider start Praluent if she changes her mind * Assessment & Plan Note - Teodoro Brown MD - 03/09/2025 1:07 PM EDT Associated Problem(s): Primary hypertension Pt here for a follow up Blood pressure controlled Regimen: hydrochlorothiazide 12.5 mg po daily Most recent BMP Lab Results Component Value Date NA 141 12/29/2024 NA 139 12/20/2024 K 3.4 12/29/2024 K 3.2 (L) 12/20/2024 CL 104 12/29/2024 CL 101 12/20/2024 BUN 9 12/29/2024 BUN 5 (L) 12/20/2024 CREATININE 0.63 12/29/2024 CREATININE 0.62 12/20/2024 Pt was on Losartan 50 mg po daily. But tpt tells me she stopped it because she was having muscle pain associated with it Pt also tells me she is taking Clonidine Plan: Continue hydrochlorothiazide 12.5 mg po daily 3 month follow up documented in this encounter Plan of Treatment Upcoming Encounters Date Type Department Care Team (Late st Contact Info) Description 05/30/2025 1:15 PM EST Office Visit [facility] MEDICINE [address] [place] [address] [phone] Teodoro Bone MD [address] [place] [address] Scheduled Referrals Name Type Priority Associated Diagnoses Orde r Schedule Referral to ENT Outpatient Referral Urgent Abnormality of palate Expected: 03/09/2025 (Approximate), Expires: 03/09/2026 documented as of this encounter Procedures Procedure Name Priority Date/Time Associated Diagnosis Comments CBC WITH AUTO DIFFERENTIAL Routine 03/09/2025 2:24 PM EDT Abnormality of palate COMPREHENSIVE METABOLIC PANEL Routine 03/09/2025 2:24 PM EDT Primary hypertension POCT INFLUENZA B (ID NOW RAPID MOLECULAR) Routine 03/09/2025 1:55 PM EDT Sore throat POCT INFLUENZA A (ID NOW RAPID MOLECULAR) Routine 03/09/2025 1:55 PM EDT Sore throat POCT COVID-19 AG WRIGHT ID NOW Routine 03/09/2025 1:55 PM EDT Sore throat POCT RAPID STREP A Routine 03/09/2025 1: 55 PM EDT Sore throat documented in this encounter Results * CBC auto differential (03/09/2025 2:24 PM EDT) White Blood Count 6.0 4.8 - 10.8 X10*3/uL [facility] Red Blood Count 4.69 4.20 - 5.50 X10*6/uL [facility] Hemoglobin 14.0 12.0 - 16.0 g/dl [facility] Hematocrit 41.8 37.0 - 47.0 % [facility] Mean Corpuscular Volume 89.1 80.0 - 98.0 fL [facility] Mean Corpuscular Hemoglobin 29.9 27.0 - 33.0 pg [facility] Mean Corpuscular HGB Conc 33.5 31.0 - 35.0 g/dl [facility] Red Cell Distribution Width 13.2 11.0 - 16.0 % [facility] Platelet Count 319 160 - 400 X10*3/uL [facility] Mean Platelet Volume 9.8 9.4 - 12.3 fL [facility] Neutrophils Percent Auto 50.8 45 - 73 % [facility] Imm Gran Pct Auto 0.3 0.0 - 0.4 % [facility] Lymphocytes Percent Auto 39.3 20 - 40 % [facility] Monocytes Percent Auto 7.6 2 - 11 % [facility] Eosinophils Percent Auto 1.5 0 - 4 % [facility] Basophils Percent Auto 0.5 0 - 2 % [facility] NRBC Pct Auto 0.0 0.0 - 0.2 /100WBC [facility] Neutrophils Absolute Auto 3.0 2.0 - 8.3 x10*3/uL [facility] Imm Gran Abs Auto 0.02 0.00 - 0.03 X10*3/uL [facility] Lymphocytes Absolute Auto 2.3 1.2 - 4.9 X10*3/uL [facility] Monocytes Absolute Auto 0.5 0.1 - 1.2 X10*3/uL [facility] Eosinophils Absolute Auto 0.1 0.0 - 0.4 X10*3/uL [facility] Basophils Absolute Auto 0.0 0.0 - 0.2 X10*3/uL [facility] NRBC Abs Auto 0.000 0.0 - 0.012 X10*3/uL [facility] Blood Venous blood specimen / Unknown 03/09/2025 2:24 PM EDT 03/09/2025 5:56 PM EDT us Teodoro Brown MD LAB BLOOD ORDERABLES Final Result [facility] [address] [place] [phone] * (ABNORMAL) Comprehensive Metabolic Panel (03/09/2025 2:24 PM EDT) Sodium 141 135 - 145 mmol/L [facility] Potassium 3.8 3.3 - 5.1 mmol/L [facility] Chloride 101 96 - 108 mmol/L [facility] Carbon Dioxide 31(H) 22 - 29 mmol/L [facility] Anion Gap 13 12 - 20 [facility] Urea Nitrogen (BUN) 7(L) 9 - 16 mg/dL [facility] Creatinine, Serum 0.72 0.5 - 1.4 mg/dL [facility] Estimated Glomerular Filt Rate >60 [facility] Comment:Chronic Kidney Disea se: Estimated GFR < 60 mL/min/1.41a0Rbydya Kidney Disease: Estimated GFR < 15 mL/min/1.73m2 Glucose 89 60 - 115 mg/dL [facility] Calcium 9.7 8.4 - 10.2 mg/dL [facility] Bilirubin, Total 0.4 0.0 - 1.0 mg/dL [facility] Aspartate Amino Transferase 19 5 - 31 U/L [facility] Alanine Aminotransferase 11 0 - 31 U/L [facility] Total Protein 7.1 6.5 - 8.0 g/dL [facility] Albumin Level 4.5 3.5 - 5.0 g/dL [facility] Alkaline Phosphatase 56 39 - 117 U/L [facility] Blood Venous blood specimen / Unknown 03/09/2025 2:24 PM EDT 03/09/2025 5:56 PM EDT us Teodoro Brown MD LAB BLOOD ORDERABLES Final Result Performing Organization Address City/[facility]/ZIP Co de Phone Number [facility] [address] [place] [phone] * POCT Rapid Strep A OSOM (03/09/2025 1:55 PM EDT) [facility] Rapid Strep A Screen Negative Negative, None Detected [facility] QC Media Lot # [id number] [facility] Lot# Expiration Date ,025 [facility] Swab 03/09/2025 1:55 PM EDT us Teodoro Brown MD POINT OF CARE TEST EN TER/EDIT ORDERABLES Final Result Performing Organization Address City/[facility]/ZIP Co de Phone Number [facility] [address] [place] [phone] * POCT Rapid Influenza B WRIGHT ID NOW (03/09/2025 1:55 PM EDT) [facility] Influenza B Negative Negative, Indeterminate [facility] QC Media Lot # [id number] [facility] Lot# Expiration Date ,026 [facility] Swab 03/09/2025 1:55 PM EDT Teodoro Brown MD POINT OF CARE TEST EN TER/EDIT ORDERABLES Final Result Performing Organization Address City/[facility]/ZIP Co de Phone Number [facility] [address] [place] [phone] * POCT Rapid Influenza A WRIGHT ID NOW (03/09/2025 1:55 PM EDT) Influenza A Negative Negative, Indeterminate [facility] QC Media Lot # [id number] [facility] Lot# Expiration Date , [facility] Swab 03/09/2025 1:55 PM EDT Teodoro Brown MD POINT OF CARE TEST EN TER/EDIT ORDERABLES Final Result Performing Organization Address [facility] Co de Phone Number [facility] [address] [place] [phone] * POCT Rapid Covid-19 WRIGHT ID NOW (03/09/2025 1:55 PM EDT) Coronavirus Antigen PCR Negative Negative, Indeterminate, None Detected, Invalid, Specimen unsatisfactory for evaluation, Weakly Positive, 2+ [facility] QC Media Lot # [id number] [facility] Lot# Expiration Date , [facility] Swab 03/09/2025 1:55 PM EDT Teodoro Brown MD POINT OF CARE TEST EN TER/EDIT ORDERABLES Final Result Performing Organization Address [facility]/ZIP Co de Phone Number [facility] [address] [place] [phone] documented in this encounter Visit Diagnoses Diagnosis Primary hypertension- Primary Unspecified essential hypertension Mixed hyperlipidemia TMJ tenderness, bilateral Neck pain on left side Abnormality of palate Weight loss Loss of weight Tinea Dermatophytosis of unspecified site Sore throat Acute pharyngitis documented in this encounter Additional Health Concerns Assessment Noted Time PHQ-9 Depression Total Score: 9 01/06/20 25 2:11 PM EDT documented as of this encounter Care Teams [employer] Administrator Relationship Specialty Start Date End Date Teodoro Bone MD [address] [place] [address] PCP - General Internal Medicine 01/23/17 Ron Constantino RN [address] [place] [address] Registered Nurse Family Medicine 12/12/24 Bianca Lewis 12/12/24 Verenice Medrano Electromechanical InspectorPotato Loader 09/09/23 documented as of this encounter
[2025-03-09 18:01] LABS: MANUAL DIFF FLAG NO
[2025-03-09 18:12] LABS: Hematocrit 41.8 % (37.0-47.0); Hemoglobin 14.0 g/dl (12.0-16.0); Imm Gran Abs Auto 0.02 X10*3/uL (0.00-0.03); Imm Gran Pct Auto 0.3 % (0.0-0.4); Lymphocytes Absolute Auto 2.3 X10*3/uL (1.2-4.9); Mean Corpuscular HGB Conc 33.5 g/dl (31.0-35.0); Mean Corpuscular Hemoglobin 29.9 pg (27.0-33.0); Mean Corpuscular Volume 89.1 fL (80.0-98.0); NRBC Abs Auto 0.000 X10*3/uL (0.0-0.012); NRBC Pct Auto 0.0 /100WBC (0.0-0.2); Platelet Count 319 X10*3/uL (160-400); Red Blood Count 4.69 X10*6/uL (4.20-5.50); White Blood Count 6.0 X10*3/uL (4.8-10.8)
[2025-03-09 18:44] LABS: Alanine Aminotransferase 11 U/L (0-31); Albumin Level 4.5 g/dL (3.5-5.0); Alkaline Phosphatase 56 U/L (39-117); Anion Gap 13 (12-20); Aspartate Amino Transferase 19 U/L (5-31); Blood Urea Nitrogen 7 mg/dL (9-16); Calcium 9.7 mg/dL (8.4-10.2); Carbon Dioxide 31 mmol/L (22-29); Chloride 101 mmol/L (96-108); Estimated Glomerular Filt Rate > 60; Potassium 3.8 mmol/L (3.3-5.1); Sodium 141 mmol/L (135-145); Total Protein 7.1 g/dL (6.5-8.0)
--- OUTSIDE RECORDS SUMMARY | 2025-03-09 18:45 | XMS_ITS | Encounter Summary ---
Author Organization [employer] Address [address] [facility] 7t [place] [address] Care Team Providers Care Hand Sample Maker Name Role Phone Teodoro Bone MD Primary Care Provide r Ron Constantino RN Unavailable [phone] Bianca Lewis Unavailable Reason for Visit * Reason Comments Med Refill Encounter Details Date Type Department Care Team (Late st Contact Info) Description 12/02/2022 Refill [facility] [address] [place], [place] [phone] Teodoro Bone MD [address] [place], [place] [phone] Acute midline low back pain without sciatica Social History Tobacco Use Types Packs/Day Years Used Date Smoking Tobacco: Former Cigarettes 0.3 35.7 S tarted: 1989 Passive Smoke Exposure: Past Smokeless Tobacco: Never Alcohol Use Standard Drinks/Week Comments Never 0 (1 standard drink = 0.6 oz pur e alcohol) Depression Answer Date Recorded Patient Health Questionnaire-9 Score 6 11/13/2022 Depression Answer Date Recorded Patient Health Questionnaire-2 Score 0 11/13/2022 Comments Unknown Sex and Gender Information Value Date Recorded Sex Assigned at Female 04/14/2022 10:18 AM EDT Legal Sex Female 10:18 AM EDT Gender Identity Female 04/14/2022 10:18 AM EDT Sexual Orientation Choose not to disclose 2021 10:18 AM EDT COVID-19 Exposure Response Date Recorded In the last 10 days, have yo u been in contact with someone who was confirmed or suspected to have Coronavirus/COVID-19? No / Unsure 11/13/2022 12:39 PM EDT documented as of this encounter Plan of Treatment Upcoming Encounters Date Type Department Care Team (Late st Contact Info) Description 05/30/2025 1:15 PM EST Office Visit [facility] [address] [place], [place] [phone] Teodoro Bone MD [address] [place] [address] documented as of this encounter Visit Diagnoses Diagnosis Acute midline low back pain without sciatica documented in this encounter Additional Health Concerns Assessment Noted Time PHQ-9 Depression Total Score: 6 11/14/19 23 1:08 PM EDT documented as of this encounter Care Teams Hand Sample Maker Relationship Specialty Start Date End Date Teodoro Bone MD [address] [place] [address] PCP - General Internal Medicine 01/23/17 Ron Constantino, NUBIA [address] [place] [address] Registered Nurse Family Medicine 12/12/24 Bianca Lewis 12/12/24 Verenice Medrano Staffing AssistantTitle Coordinator 09/09/23 documented as of this encounter
--- OUTSIDE RECORDS SUMMARY | 2025-03-09 18:45 | XMS_ITS | Encounter Summary ---
Author Organization [employer] Address 75 [facility] 7t [place] [address] Care Team Providers Care Nuclear Radiation Engineer Name Role Phone Teodoro Bone MD Primary Care Provide r Ron Constantino RN Unavailable [phone] Bianca Lewis Unavailable Reason for Visit * Reason Comments Med Refill Encounter Details Date Type Department Care Team (Late st Contact Info) Description 01/09/2023 Refill [facility] [address] [place], [place] [phone] Jaclyn Romano MD 230 [place] [address] Acute midline low back pain without sciatica [...] Description 05/30/2025 1:15 PM EST Office Visit [facility] [address] [place] [address] Teodoro Bone MD [address] [place] [address] documented as of this encounter Visit Diagnoses Diagnosis Acute midline low back pain without sciatica documented in this encounter Additional Health Concerns Assessment Noted Time PHQ-9 Depression Total Score: 6 11/14/19 23 1:08 PM EDT documented as of this encounter Care Teams Nuclear Radiation Engineer Relationship Specialty Start Date End Date Teodoro Bone MD [address] [place] [address] PCP - General Internal Medicine 01/23/17 Ron Constantino RN [address] [place] [address] Registered Nurse Family Medicine 12/12/24 Bianca Lewis 12/12/24 Verenice Medrano Game Bird FarmerMedical Instrument Cable Fabricator 09/09/23 documented as of this encounter
--- OUTSIDE RECORDS SUMMARY | 2025-03-09 18:45 | XMS_ITS | Encounter Summary ---
Author Organization [employer] Address 75 [facility] 7t [place] [address] Care Team Providers Care Licensed Audiologist Name Role Phone Teodoro Bone MD Primary Care Provide r Ron Constantino RN Unavailable [phone] Bianca Lewis Unavailable Reason for Visit * Reason Comments Med Refill Encounter Details Date Type Department Care Team (Late st Contact Info) Description 10/14/2024 Refill [facility] 230 [place], [place] [phone] Teodoro Bone MD 230 [place], [place] [phone] Seasonal allergies Social History Tobacco Use Types [...] the past 12 months, has t he [employer], gas, oil or water company threatened to [...] Description 05/30/2025 1:15 PM EST Office Visit [facility] [address] [place] [address] Teodoro Bone MD [address] [place] [address] documented as of this encounter Visit Diagnoses Diagnosis Seasonal allergies Allergic rhinitis, cause unspecified documented in this encounter Additional Health Concerns Assessment Noted Time PHQ-9 Depression Total Score: 24 024 1:52 PM EDT documented as of this encounter Care Teams Licensed Audiologist Relationship Specialty Start Date End Date Teodoro Bone MD 230 [place] [address] PCP - General Internal Medicine 01/23/17 Ron Constantino RN [address] [place] [address] Registered Nurse Family Medicine 12/12/24 Bianca Lewis 12/12/24 Verenice Medrano Flatwork IronerHeadmaster/Mistress 09/09/23 documented as of this encounter
--- OUTSIDE RECORDS SUMMARY | 2025-03-09 18:45 | XMS_ITS | Encounter Summary ---
Author Organization [employer] Address [address] [facility] [address] 7t [place] [address] Care Team Providers Care Manufacturing Supervisor 2Nd Shift Name Role Phone Teodoro Bone MD Primary Care Provide r Ron Constantino RN Unavailable [phone] Bianca Lewis Unavailable Reason for Visit * Reason Comments Med Refill Encounter Details Date Type Department Care Team (Late st Contact Info) Description 03/09/2025 Refill [facility] 230 [place], [place] [phone] Smitha Wharton FNP 230 [place] [address] COVID Social History Tobacco Use Types Packs/Day Years [...] the past 12 months, has t he [employer], gas, oil or water company threatened to [...] Description 05/30/2025 1:15 PM EST Office Visit [facility] [address] [place] [address] Teodoro Bone MD [address] [place] [address] documented as of this encounter Visit Diagnoses Diagnosis COVID documented in this encounter Additional Health Concerns Assessment Noted Time PHQ-9 Depression Total Score: 9 01/06/20 25 2:11 PM EDT documented as of this encounter Care Teams Manufacturing Supervisor 2Nd Shift Relationship Specialty Start Date End Date Teodoro Bone MD [address] [place] [address] PCP - General Internal Medicine 01/23/17 Ron Constantino RN [address] [place] [address] Registered Nurse Family Medicine 12/12/24 Bianca Lewis 12/12/24 Verenice Medrano Stockroom KeeperNumerical Control Tool Programmer 09/09/23 documented as of this encounter
--- OUTSIDE RECORDS SUMMARY | 2025-03-09 18:45 | XMS_ITS | Encounter Summary ---
Author Organization [employer] Address [address] [facility] [address] 7t [place] [address] Care Team Providers Care Fruit Grader Operator Name Role Phone Teodoro Bone MD Primary Care Provide r Ron Constantino RN Unavailable [phone] Bianca Lewis Unavailable Encounter Details Date Type Department Care Team ([facility] st Contact Info) Description 03/06/2025 Patient Outreach [facility] 230 [place], [place] [phone] Teodoro Bone MD 230 [place], [place] [phone] Social History Tobacco Use Types Packs/Day Years [...] Description 05/30/2025 1:15 PM EST Office Visit [facility] [address] [place] [address] Teodoro Bone MD [address] [place] [address] documented as of this encounter Visit Diagnoses Not on filedocumented in this encounter Additional Health Concerns Assessment Noted Time PHQ-9 Depression Total Score: 9 01/06/20 25 2:11 PM EDT documented as of this encounter Care Teams Fruit Grader Operator Relationship Specialty Start Date End Date Teodoro Bone MD 230 [place] [address] PCP - General Internal Medicine 01/23/17 Ron Constantino RN [address] [place] [address] Registered Nurse Family Medicine 12/12/24 Bianca Lewis 12/12/24 Verenice Medrano Head Correction OfficerSales Expert 09/09/23 documented as of this encounter
--- OUTSIDE RECORDS SUMMARY | 2025-03-09 18:45 | XMS_ITS | Encounter Summary ---
Author Organization [employer] Address [address] [facility] [address] 7t [place] [address] Care Team Providers Care Public Health Service Officer Name Role Phone Teodoro Bone MD Primary Care Provide r Ron Constantino RN Unavailable [phone] Bianca Lewis Unavailable Encounter Details Date Type Department Care Team (Latest Contact Info) Description 03/09/2025 Travel Social History Tobacco Use Types Packs/Day Years [...] Description 05/30/2025 1:15 PM EST Office Visit [facility] 230 [place] [address] Teodoro Bone MD [address] [place] [address] documented as of this encounter Visit Diagnoses Not on filedocumented in this encounter Additional Health Concerns Assessment Noted Time PHQ-9 Depression Total Score: 9 01/06/20 25 2:11 PM EDT documented as of this encounter Care Teams Public Health Service Officer Relationship Specialty Start Date End Date Teodoro Bone MD [address] [place] [address] PCP - General Internal Medicine 01/23/17 Ron Constantino, NUBIA [address] [place] [address] Registered Nurse Family Medicine 12/12/24 Bianca Lewis 12/12/24 Verenice Medrano Fisheries DiverResults Technician 09/09/23 documented as of this encounter
--- OUTSIDE RECORDS SUMMARY | 2025-03-09 18:45 | XMS_ITS | Encounter Summary ---
Author Organization [employer] Address 75 [facility] 7t [place] [address] Care Team Providers Care Rn Neurosurgical Name Role Phone eTodoro Bone MD Primary Care Provide r Ron Constantino RN Unavailable [phone] Bianca Lewis Unavailable Reason for Visit * Reason Comments Med Refill Encounter Details Date Type Department Care Team (Late st Contact Info) Description 03/04/2025 Refill [facility] [address] [place], [place] [phone] Teodoro Bone MD 230 [place], [place] [phone] Primary hypertension; Seasonal allergies Social History Tobacco Use Types [...] Description 05/30/2025 1:15 PM EST Office Visit [facility] [address] [place] [address] Teodoro Bone MD 230 [place] [address] documented as of this encounter Visit Diagnoses Diagnosis Primary hypertension Unspecified essential hypertension Seasonal allergies Allergic rhinitis, cause unspecified documented in this encounter Additional Health Concerns Assessment Noted Time PHQ-9 Depression Total Score: 9 01/06/20 25 2:11 PM EDT documented as of this encounter Care Teams Rn Neurosurgical Relationship Specialty Start Date End Date Teodoro Bone MD [address] [place] [address] PCP - General Internal Medicine 01/23/17 Ron Constantino RN [address] [place] [address] [place] [address] Registered Nurse Family Medicine 12/12/24 Bianca Lewis 12/12/24 Verenice Medrano Electrical Tester BatteryMangle Tender 09/09/23 documented as of this encounter
--- OUTSIDE RECORDS SUMMARY | 2025-03-09 18:45 | XMS_ITS | Encounter Summary ---
Author Organization [employer] Address 75 [facility] 7t [place] [address] Care Team Providers Care High Scaler Name Role Phone Teodoro Bone MD Primary Care Provide r Ron Constantino RN Unavailable [phone] Bianca Lewis Unavailable Reason for Visit * Reason Comments Med Refill Encounter Details Date Type Department Care Team (Late st Contact Info) Description 01/09/2023 Refill [facility] 230 [place], [place] [phone] Madisyn Rodriguez MD 230 [place] [address] Heartburn Social History Tobacco Use Types Packs/Day Years [...] Description 05/30/2025 1:15 PM EST Office Visit [facility] 230 [place] [address] Teodoro Bone MD 230 [place], [place] [phone] documented as of this encounter Visit Diagnoses Diagnosis Heartburn documented in this encounter Additional Health Concerns Assessment Noted Time PHQ-9 Depression Total Score: 6 11/14/19 23 1:08 PM EDT documented as of this encounter Care Teams High Scaler Relationship Specialty Start Date End Date Teodoro Bone MD 230 [place], [place] [phone] PCP - General Internal Medicine 01/23/17 Ron Constantino RN [address] [place] [address] Registered Nurse Family Medicine 12/12/24 Bianca Lewis 12/12/24 Verenice Medrano Research InvestigatorLearning Disabilities Teacher 09/09/23 documented as of this encounter
--- OUTSIDE RECORDS SUMMARY | 2025-03-09 18:46 | XMS_ITS | Encounter Summary ---
Author Organization [employer] Address 75 [facility] 7t [place] [address] Care Team Providers Care Sales Floor Team Member Name Role Phone Teodoro Bone MD Primary Care Provide r Ron Constantino RN Unavailable [phone] Bianca Lewis Unavailable Encounter Details Date Type Department Care Team (Latest Contact Info) Description 12/13/2018 Abstract [facility] CONVERSIONS Dental, Provider, DDS Social History Tobacco Use Types Packs/Day Years Used Date Smoking Tobacco: Never Assessed Comments Unknown Sex and Gender Information Value [...] Description 05/30/2025 1:15 PM EST Office Visit [facility] 230 [place], [place] [phone] Teodoro Bone MD 230 [place], [place] [phone] documented as of this encounter Visit Diagnoses Not on filedocumented in this encounter Care Teams Sales Floor Team Member Relationship Specialty Start Date End Date Teodoro Bone MD 230 [place], [place] [phone] PCP - General Internal Medicine 01/23/17 Ron Constantino RN [address] [place] [address] [place] [address] Registered Nurse Family Medicine 12/12/24 Bianca Lewis 12/12/24 Verenice Medrano Inside FinisherSplit Leather Mosser 09/09/23 documented as of this encounter
--- OUTSIDE RECORDS SUMMARY | 2025-03-09 18:46 | XMS_ITS ---
Author Organization [employer] Address 75 [facility] 7t [place] [address] Care Team Providers Care Car Pilot Name Role Phone Teodoro Bone MD Primary Care Provide r Ron Constantino RN Unavailable [phone] Bianca Lewis Unavailable [facility] Status:Enrolled (Active) Start date:12/12/2024 Enrollment date:01/03/2025 Enrollment reason:ADT Feed Overview ED- Pt went to [facility] on 12/10/24. Please outreach for enrollment. Case Team Name Relationship Phone Bianca Lweis(Responsible Staff) Continued Care and Services Coordination
--- OUTSIDE RECORDS SUMMARY | 2025-03-09 18:46 | XMS_ITS | Encounter Summary ---
Author Organization [employer] Address [address] [facility] 7t [place] [address] Care Team Providers Care Rail Crew Member Name Role Phone Teodoro Bone MD Primary Care Provide r Ron Constantino RN Unavailable [phone] Bianca Lewis Unavailable Reason for Visit * Reason Comments Med Refill Encounter Details Date Type Department Care Team (Late st Contact Info) Description 10/31/2022 Refill [facility] 230 [place], [place] [phone] Arabella Hernandez, ANP [address] [place], [place] [phone] Skyler Social History Tobacco Use Types Packs/Day Years Used Date Smoking Tobacco: Former Cigarettes 0.3 35.7 S tarted: 1989 Passive Smoke Exposure: Never Smokeless Tobacco: Never Alcohol Use Standard Drinks/Week [...] suspected to have Coronavirus/COVID-19? No / Unsure 10/07/2022 11:13 AM EDT documented as of this encounter Plan of Treatment Upcoming Encounters Date Type Department Care Team (Late st Contact Info) Description 05/30/2025 1:15 PM EST Office Visit [facility] 230 [facility] [place] [address] Teodoro Bone MD [address] [place] [address] documented as of this encounter Visit Diagnoses Diagnosis Tinea Dermatophytosis of unspecified site documented in this encounter Care Teams Rail Crew Member Relationship Specialty Start Date End Date Teodoro Bone MD [address] [place], [place] [phone] PCP - General Internal Medicine 01/23/17 Ron Constantino RN [address] [place] [address] Registered Nurse Family Medicine 12/12/24 Bianca Lewis 12/12/24 Verenice Medrano Shuttle Route Vehicle OperatorCall Out Operator 09/09/23 documented as of this encounter
--- OUTSIDE RECORDS SUMMARY | 2025-03-09 18:46 | XMS_ITS | Encounter Summary ---
Author Organization [employer] Address [address] [facility] [address] 7t [place] [address] Care Team Providers Care Grain Mixer Name Role Phone Teodoro Bone MD Primary Care Provide r Ron Constantino RN Unavailable [phone] Bianca Lewis Unavailable Encounter Details Date Type Department Care Team (Late st Contact Info) Description 08/25/2024 Orders Only [facility] [address] [place] [address] Provider, MD Mckenna Social History Tobacco Use Types Packs/Day Years [...] Description 05/30/2025 1:15 PM EST Office Visit [facility] MEDICINE 230 [place] [address] Teodoro Bone MD [address] [place] [address] documented as of this encounter Procedures Procedure Name Priority Date/Time Associated Diagnosis Comments HM PAP/HPV Routine 05/03/2024 10:27 AM EST documented in this encounter Results * HM PAP/HPV (05/03/2024 10:27 AM EST) us Historical Provider HEALTH MAINTENANCE Final Result documented in this encounter Visit Diagnoses Not on filedocumented in this encounter Additional Health Concerns Assessment Noted Time PHQ-9 Depression Total Score: 24 024 1:52 PM EDT documented as of this encounter Care Teams Grain Mixer Relationship Specialty Start Date End Date Teodoro Bone MD [address] [place] [address] PCP - General Internal Medicine 01/23/17 Ron Constantino, NUBIA [address] [place] [address] Registered Nurse Family Medicine 12/12/24 Bianca Lewis 12/12/24 Verenice Medrano Coil Winder StrapDragline Mechanic 09/09/23 documented as of this encounter
--- OUTSIDE RECORDS SUMMARY | 2025-03-09 18:46 | XMS_ITS | Encounter Summary ---
Author Organization [employer] Address 75 [facility] 7t [place] [address] Care Team Providers Care Recording Clerk Name Role Phone Teodoro Bone MD Primary Care Provide r Ron Constantino RN Unavailable [phone] Bianca Lewis Unavailable Reason for Visit * Reason Comments Med Refill Encounter Details Date Type Department Care Team (Late st Contact Info) Description 01/20/2023 Refill [facility] 230 [place], [place] [phone] Teodoro Bone MD 230 [place], [place] [phone] Tinea Social History Tobacco Use Types Packs/Day Years [...] 1:15 PM EST Office Visit [facility] [address] [place] [address] Teodoro Bone MD [address] [place] [address] documented as of this encounter Visit Diagnoses Diagnosis Tinea Dermatophytosis of unspecified site documented in this encounter Additional Health Concerns Assessment Noted Time PHQ-9 Depression Total Score: 6 11/14/19 23 1:08 PM EDT documented as of this encounter Care Teams Recording Clerk Relationship Specialty Start Date End Date Teodoro Bone MD [address] [place] [address] PCP - General Internal Medicine 01/23/17 Ron Constantino RN [address] [address] Registered Nurse Family Medicine 12/12/24 Bianca Lewis 12/12/24 Verenice Medrano Systems ManagerShochet 09/09/23 documented as of this encounter
--- OUTSIDE RECORDS SUMMARY | 2025-03-09 18:46 | XMS_ITS | Encounter Summary ---
Author Organization [employer] Address 75 [facility] 7t [place] [address] Care Team Providers Care Harness Builder Name Role Phone Teodoro Bone MD Primary Care Provide r Ron Constantino RN Unavailable [phone] Bianca Lewis Unavailable Reason for Visit * Reason Onset Date Comments MRI 10/30/2023 Encounter Details Date Type Department Care Team ([facility] st Contact Info) Description 10/30/2023 Telephone [facility] MEDICINE 230 [place], [place] [phone] Teodoro Bnoe MD 230 [place], [place] [phone] MRI Social History Tobacco Use Types Packs/Day Years Used Date Smoking Tobacco: Some Days Cigarettes 0.3 35.7 Started: 1989 Passive Smoke Exposure: Current Smokeless Tobacco: Never Alcohol Use Standard Drinks/Week Comments Never 0 (1 standard drink = 0.6 oz pur e alcohol) Depression Answer Date Recorded Patient Health Questionnaire-9 Score 6 11/13/2022 Housing Stability Answer Date Recorded What is your housing situation today? I have miryam taniya 04/13/[address] you li ve. Do you have problems with any of the following? None of the above 04/13/2023 Food Insecurity Answer Date Recorded Within the past 12 months, y ou worried that your food would run out before you got money to buy more: Never True 04/13/2023 Within the past 12 months,th e food you bought just didn't last and you didn't have enough money to get more: Never True Transportation Answer Date Recorded In the past 12 months, has l ack of transportation kept you from medical appts, meetings, work or from getting things needed for daily living? No 04/13/2023 Utilities Answer Date Recorded In the past 12 months, has t he electric, gas, oil or water company threatened to shut off services in your home? No 04/13/2023 Depression Answer Date Recorded Patient Health Questionnaire-2 Score 0 11/13/2022 Comments Unknown Sex and Gender Information Value Date Recorded Sex Assigned at Female 04/14/2022 10:18 AM EDT Legal Sex Female 10:18 AM EDT Gender Identity Female 04/14/2022 10:18 AM EDT Sexual Orientation Choose not to disclose 2021 10:18 AM EDT documented as of this encounter Miscellaneous Notes * Telephone Encounter - Kiki Constantino - 10/30/2023 11:28 AM EDT Tc from pt requesting for MRI to be sent to [facility]. States she became claustrophobic and was not able to complete MRI. Any questions, contact pt at [phone] documented in this encounter Plan of Treatment Upcoming Encounters Date Type Department Care Team (Late st Contact Info) Description 05/30/2025 1:15 PM EST Office Visit [facility] MEDICINE 230 [place], [place] [phone] Teodoro Bone MD 230 [place] [address] documented as of this encounter Visit Diagnoses Not on filedocumented in this encounter Additional Health Concerns Assessment Noted Time PHQ-9 Depression Total Score: 6 11/14/19 23 1:08 PM EDT documented as of this encounter Care Teams Harness Builder Relationship Specialty Start Date End Date Teodoro Bone MD 230 [place], [place] [phone] PCP - General Internal Medicine 01/23/17 Ron Constnatino, NUBIA [address] [place] [address] Registered Nurse Family Medicine 12/12/24 Bianca Lewis 12/12/24 Verenice Medrano Beam Press OperatorLand Department Head 09/09/23 documented as of this encounter
--- OUTSIDE RECORDS SUMMARY | 2025-03-09 18:46 | XMS_ITS ---
Author Organization [employer] Address [address] [facility] [address]t [place] [address] Care Team Providers Care Adaptive Physical Educator Name Role Phone Teodoro Bone MD Primary Care Provide r Ron Constantino RN Unavailable [phone] Bianca Lewis Unavailable CM Complex Status:Enrolled (Active) Start date:12/12/2024 Enrollment date:01/05/2025 Enrollment reason:ADT Feed Overview ED- Pt went to [facility] ED on 12/10/24. Case Team Name Relationship Phone Ron Constantino RN(Responsible Staff) Registered Nurse [phone] Continued Care and Services Coordination
--- OUTSIDE RECORDS SUMMARY | 2025-03-09 18:46 | XMS_ITS | Encounter Summary ---
Author Organization [employer] Address [address] [facility] 7t [place] [address] Care Team Providers Care Floor Inspector Name Role Phone Teodoro Bone MD Primary Care Provide r Ron Constantino RN Unavailable [phone] Bianca Lewis Unavailable Reason for Visit * Reason Onset Date Comments Nurse Triage 12/28/2023 Encounter Details Date Type Department Care Team ([facility] st Contact Info) Description 12/28/2023 Telephone [facility] [address] [place], [place] [phone] Teodoro Bone MD [address] [place], [place] [phone] Nurse Triage Social History Tobacco Use Types Packs/Day Years [...] is your housing situation today? I have miryampooja monahan 04/13/[address] you li [...] encounter Miscellaneous Notes * Telephone Encounter - Deborah Amor RN - 12/28/2023 9:52 AM EDT Triage call Pt reports continues with severe sore throat. Pt was seen in [facility] 12/23/23. Pt was prescribed antibiotics, encouraged to gargle and has followed all instructions. Pt is finished with antibiotics and still feels the same. Neg for fever. Pt requests antibiotics and declines to come to [facility] no OV available. Contacted Dr. Fernandez, via [employer]. Dr. Fernandez saw Pt in [facility] 12/23/23, creative services writer asked Dr. Fernandez ifcall could be made to Pt and more antibiotics prescribed. Dr. Fernandez advised for Pt to come to [facility] to be seen before antibiotics could be ordered. Second call to Pt, advised Pt again to come to [facility] today, explained that provider recommends this. Pt had reported, I will just take some clindamycin which I have here. . Pt is advised not to take antibiotics that have not been prescribed for this sore throat and to come to [facility]. Pt agrees to come to [facility] to be seen today. Pt reports agreement with disposition and home care is already implemented. Insurance is verified as active. Protocol Used: Sore Throat (Adult) Protocol-Based Disposition: See in Office or Video Visit Today Video visit not offered Positive Triage Question: * Severe sore throat pain * All higher-acuity triage questions were negative Care Advice Discussed: * Reassurance and Education - Sore Throat * Sore Throat * Soft Diet * Drink Plenty of Liquids * Pain and Fever Medicines * Contagiousness * Expected Course * Reasons To Call Back - Sore throat is the main symptom and it lasts longer than 48 hours - Sore throat is mild but lasts longer than 4 days - Fever lasts longer than 3 days - You become worse * Telephone Encounter - Snehal Pacheco - 12/28/2023 8:56 AM EDT Symptom: Sore Throat Outcome: Schedule an urgent appointment (within 4 hours) or talk to a nurse or provider soon Reason: Trouble drinking The caller accepted this outcome documented in this encounter Plan of Treatment Upcoming Encounters Date Type Department Care Team (Late st Contact Info) Description 05/30/2025 1:15 PM EST Office Visit [facility] [address] [place] [address] Teodoro Bone MD [address] [place] [address] documented as of this encounter Visit Diagnoses Not on filedocumented in this encounter Additional Health Concerns Assessment Noted Time PHQ-9 Depression Total Score: 6 11/14/19 23 1:08 PM EDT documented as of this encounter Care Teams Floor Inspector Relationship Specialty Start Date End Date Teodoro Bone MD [address] [place] [address] PCP - General Internal Medicine 01/23/17 Ron Constantino RN [address] [place] [phone] Registered Nurse Family Medicine 12/12/24 Bianca Lewis 12/12/24 Verenice Medrano In Flight TechnicianSource Inspector 09/09/23 documented as of this encounter
--- OUTSIDE RECORDS SUMMARY | 2025-03-09 18:46 | XMS_ITS | Encounter Summary ---
Author Organization [employer] Address [address] [facility] 7t [place] [address] Care Team Providers Care Financial Services Intern Name Role Phone Teodoro Bone MD Primary Care Provide r Ron Constantino RN Unavailable [phone] Bianca Lewis Unavailable Reason for Visit * Reason Comments Med Refill Encounter Details Date Type Department Care Team (Late st Contact Info) Description 10/31/2022 Refill [facility] [address] [place], [place] [phone] Name, MD Conrad [address] [place], [place] [phone] Heartburn Social History Tobacco Use Types Packs/Day [...] Description 05/30/2025 1:15 PM EST Office Visit [facility] [address] [facility] [place] [address] Teodoro Bone MD [address] [place] [address] documented as of this encounter Visit Diagnoses Diagnosis Heartburn documented in this encounter Care Teams Financial Services Intern Relationship Specialty Start Date End Date Teodoro Bone MD [address] [place], [place] [phone] PCP - General Internal Medicine 01/23/17 Ron Constantino, NUBIA [address] [place] [phone] Registered Nurse Family Medicine 12/12/24 Bianca Lewis 12/12/24 Verenice Medrano Telehealth Case ManagerCook Fruit 09/09/23 documented as of this encounter
--- OUTSIDE RECORDS SUMMARY | 2025-03-09 18:46 | XMS_ITS | Encounter Summary ---
Author Organization [employer] Address [address] [facility] 7t [place] [address] Care Team Providers Care Creative Services Specialist Name Role Phone Teodoro Bone MD Primary Care Provide r Ron Constantino RN Unavailable [phone] Bianca Lewis Unavailable Reason for Visit * Reason Comments Med Refill Encounter Details Date Type Department Care Team (Late st Contact Info) Description 06/21/2023 Refill [facility] [address] [place], [place] [phone] Jaclyn Romano MD [address] [place] [address] Acute midline low back pain without sciatica [...] 1:15 PM EST Office Visit [facility] [address] [place] [phone] Teodoro Bone MD [address] [place] [phone] documented as of this encounter Visit Diagnoses Diagnosis Acute midline low back pain without sciatica documented in this encounter Additional Health Concerns Assessment Noted Time PHQ-9 Depression Total Score: 6 11/14/19 23 1:08 PM EDT documented as of this encounter Care Teams Creative Services Specialist Relationship Specialty Start Date End Date Teodoro Bone MD [address] [place] [phone] PCP - General Internal Medicine 01/23/17 Ron Constantino, NUBIA [address] [place] [phone] Registered Nurse Family Medicine 12/12/24 Bianca Lewis 12/12/24 Verenice Medrano Cabin SupervisorContainer Repairer 09/09/23 documented as of this encounter
--- OUTSIDE RECORDS SUMMARY | 2025-03-09 18:46 | XMS_ITS | Encounter Summary ---
Author Organization [employer] Address [address] [facility] 7[address] [place] [address] Care Team Providers Care Car Starter Name Role Phone Teodoro Bone MD Primary Care Provide r Ron Constantino RN Unavailable [phone] Bianca Lewis Unavailable Reason for Visit * Reason Comments Med Refill Encounter Details Date Type Department Care Team (Late st Contact Info) Description 10/16/2022 Refill [facility] [address] [place], [place] [phone] Teodoro Bone MD [address] [place], [place] [phone] Acute midline low back pain without sciatica [...] Description 05/30/2025 1:15 PM EST Office Visit [facility] [address] [place] [address] Teodoro Bone MD [address] [place], [place] [phone] documented as of this encounter Visit Diagnoses Diagnosis Acute midline low back pain without sciatica documented in this encounter Care Teams Car Starter Relationship Specialty Start Date End Date Teodoro Bone MD [address] [place], [place] [phone] PCP - General Internal Medicine 01/23/17 Ron Constantino RN [address] [place] [phone] Registered Nurse Family Medicine 12/12/24 Bianca Lewis 12/12/24 Verenice Medrano Handcrew ForemanDecontaminator 09/09/23 documented as of this encounter
--- OUTSIDE RECORDS SUMMARY | 2025-03-09 18:46 | XMS_ITS | Clinical Summary ---
Author Organization [employer] Address [address] [facility] [address] [place] [address] Care Team Providers Care Surgical Assist Name Role Phone Teodoro Bone MD Primary Care Provide r Ron Constantino RN Unavailable [phone] Bianca Lewis Unavailable Allergies Active Allergy Reactions Criticality Noted Date Comments Penicillins Swelling 05/21/2022 Medications acetaminophen (Tylenol) 500 MG tablet Active acyclovir (Zovirax) 5 % ointment Apply topically every 3 (three) hours. Active albuterol (2.5 MG/3ML) 0.083% nebulizer solution 019 Active Buprenorphine HCl-Naloxone HCl (Suboxone) 8-2 MG SL film Active cloNIDine (Catapres) 0.1 MG tablet Active clotrimazole (Lotrimin) 1 % vaginal cream 021 Active Diclofenac Sodium 1 % gel Apply topically every 12 (twelve) hours. Active estradiol-norethi ndrone 0.5-0.1 MG tablet Take 1 tablet by mouth at bed time. Active mirtazapine (Remeron) 30 MG tablet Take 1 tablet by mouth at bed time. Active naloxone (Narcan) 4 mg/0.1 mL nasal spray Administer 0.1 mL into affected nostril(s). Active nicotine polacrilex (Commit) 2 MG lozenge 06/10/2 021 Active PARoxetine (Paxil) 20 MG tablet Active Polyethylene Glycol 400 (Blink Tears) 0.25 % solution 022 Active traZODone (Desyrel) 100 MG tablet Take 1 tablet by mouth at bed time. 020 Active triamcinolone (Kenalog) 0.025 % cream Apply topically every 12 (twelve) hours. 022 Active chlorhexidine (Peridex) 0.12 % solutionIndicatio ns:Periodontal disease SWISH 15 ML IN MOUTH FOR 30 SECONDS THEN SPIT OUT TWICE A DAY AFTER MEALS 473 mL 1 022 Active QUEtiapine (SEROquel) 100 MG tablet TAKE 1/2 TABLET BY MOUTH IN THE MORNING,1/2 MIDDAY, AND 1 FULL TAB AT BEDTIME 023 Active QUEtiapine (SEROquel) 50 MG tablet Take 50 mg by mouth at bedtime. 023 Active hydrocortisone (Proctosol HC) 2.5 % rectal creamIndications: Grade I hemorrhoids Insert into the rectum 2 times daily. 28 g 2 024 Active pseudoephedrine (Sudafed) 30 MG tablet Take 1 tablet (30 mg) by mouth every 4 (four) hours if needed for congestion for up to 10 days. 30 tablet 024 Active albuterol (Ventolin HFA) 108 (90 Base) MCG/ACT inhalerIndication s:COVID TAKE 2 PUFFS BY MOUTH EVERY 4 TO 6 HOURS NEEDED 18 g 3 024 Active oxymetazoline (Afrin Nasal [place]) 0.05 % nasal spray Administer 2 sprays into each nostril every 12 (twelve) hours if needed for congestion for up to 2 days. Do not use for more than 3 days. 30 mL 024 Active Blood Pressure Monitor miscIndications:P [facility] 1 Device Once daily. 1 each 024 Active ferrous sulfate 325 (65 Fe) MG tabletIndications :Iron deficiency TAKE 1 TABLET BY MOUTH EVERY DAY 90 tablet 3 025 Active ibuprofen 800 MG tabletIndications :Neck pain on left side TAKE 1 TABLET BY MOUTH IF NEEDED IN THE MORNING, AT NOON, AND AT BEDTIME FOR MILD PAIN. 30 tablet 025 Active gabapentin (Neurontin) 300 MG capsuleIndication s:Intercostal neuritis,Peripher al polyneuropathy TAKE 2 CAPSULES BY MOUTH 3 TIMES A DAY 180 capsule 3 025 Active omeprazole (PriLOSEC) [address] capsuleIndication s:Heartburn TAKE 1 CAPSULE BY MOUTH TWICE A DAY 180 capsule 025 Active hydroCHLOROthiazi de 12.5 MG tabletIndications :Primary hypertension TAKE 1 TABLET BY MOUTH ONCE DAILY 90 tablet 1 025 Active cetirizine (ZyrTEC) 10 MG tabletIndications :Seasonal allergies TAKE 1 TABLET BY MOUTH EVERY DAY 90 tablet 025 Active clotrimazole-beta methasone (Lotrisone) creamIndications: Tinea APPLY TO AFFECTED AREA TWICE A DAY 45 g 025 Active cetirizine (ZyrTEC) 10 MG tabletIndications :Seasonal allergies TAKE 1 TABLET (10 MG) BY MOUTH ONCE PER DAY. 90 tablet 025 2024 Discontinued hydroCHLOROthiazi de 12.5 MG tabletIndications :Primary hypertension Take 1 tablet (12.5 mg) by mouth Once per day. 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 Assessment & Plan (03/09/2025 4:07 PM EDT): [facility] [...] was referred back to ENT for laryngoscopy TMJ tenderness, bilateral 03/09/2025 Assessment & Plan (03/09/2025 4:07 PM EDT): Pt seen in the ER with c/o [...] scheduled to see her dentist as well Sore throat 03/09/2025 UTI symptoms 12/20/2024 Assessment & Plan (12/20/2024 12:50 PM EDT): UA and culture done patient will be contacted with results Ciprofloxacin 500mg BID for 7 days Pyridium for symptoms It was advise not to hold the urine and drink plenty of water Vaginal itching 12/20/2024 Assessment & Plan (12/20/2024 12:51 PM EDT): BV panel ordered Patient will be contacted with results Cough 08/30/2024 Assessment & Plan (08/30/2024 3:26 PM EDT): Mild, dry On exam lungs CTA B. Pt encouraged to quit smoking Neg rapid flu, covid and Strep tests Supportive measures, asked to come back if symptoms do not improve or worsen or if cough becomes productive Primary hypertension 05/31/2024 Assessment & Plan (03/09/2025 1:07 PM EDT): Pt here for a follow up Blood [...] mg po daily 3 month follow up Assessment & Plan (12/06/2024 1:11 PM EDT): Pt here for a follow up Blood pressure elevated Most recent BMP Lab Results Component Value Date NA 139 10/13/2023 NA 140 11/11/2022 K 4.0 10/13/2023 K 3.7 11/11/2022 CL 104 10/13/2023 CL 101 11/11/2022 BUN 5 (L) 10/13/2023 BUN 6 (L) 11/11/2022 CREATININE 0.71 10/13/2023 CREATININE 0.71 11/11/2022 Will repeat, she did not do it Pt was on Losartan 50 mg po daily. But tpt tells me she stopped it because she was having muscle pain associated with it Pt also tells me she is taking Clonidine Plan: hydrochlorothiazide 12.5 mg po daily 3 month follow up Assessment & Plan (08/30/2024 2:43 PM EDT): Pt with persistent elevated BP Most recent BMP Lab Results Component Value Date NA 139 10/13/2023 NA 140 11/11/2022 K 4.0 10/13/2023 K 3.7 11/11/2022 CL 104 10/13/2023 CL 101 11/11/2022 BUN 5 (L) 10/13/2023 BUN 6 (L) 11/11/2022 CREATININE 0.71 10/13/2023 CREATININE 0.71 11/11/2022 Will repeat Pt is on Losartan 25 mg po daily. Plan: Increase Losartan to 50 mg po daily Pt also tells me she is taking Clonidine 1 month RN BP check, 3 months with me Assessment & Plan (07/10/2024 12:49 PM EST): Goal BP < 130/80 Patient states home blood pressure is elevated Continue working on lifestyle modifications Start losartan 25 mg daily Assessment & Plan (05/31/2024 4:43 PM EST): Likely due to the fact that is in pain. 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 Assessment & Plan (08/30/2024 2:27 PM EDT): Patient under the care [place] [facility] [place] [facility], receiving nerve blocks Last note 05/04/2024 Assessment & Plan (07/07/2024 5:41 AM EST): Patient under the care of [facility] [place] [facility], receiving nerve blocks Assessment & Plan (05/31/2024 4:28 PM EST): Patient under the care of [facility] [place] [facility], receiving nerve blocks Assessment & Plan (02/11/2024 2:11 PM EDT): Patient under the care of [facility] [place] [facility] Right foot pain 02/11/2024 Assessment & Plan (02/11/2024 2:17 PM EDT): Patient under the care of can filling machine operator Dr. Orourke Receiving steroid injections Pt requested a cane to help her support walk. Grade I hemorrhoids 11/10/2023 Assessment & Plan (11/10/2023 4:20 PM EDT): Recommended to increase fluids, dietary fiber, sit baths. Proctosol cream BID Skin lesions 10/13/2023 Assessment & Plan (11/10/2023 11:28 AM EDT): Referred to [facility] Derm Assessment & Plan (10/13/2023 12:13 PM EDT): Referred to [facility] Derm Numbness and tingling in left arm 06/16/2023 Assessment & Plan (11/10/2023 4:16 PM EDT): Pt with previous c/o intermittent left sided neck pain with radiation to left arm Etiology ? Cervical radiculopathy ? Vs CTS [...] and mod to severe bilateral foraminal narrowing Assessment & Plan (10/13/2023 3:52 PM EDT): Pt with previous c/o intermittent left sided neck pain with radiation to left arm Etiology ? Cervical radiculopathy ? Vs CTS C-sine x-rays showed: Multilevel cervical spondylosis most notable at C5-C6. NCS upper extremities was negative 07/30/2023. Plan: Will proceed with an MRI of the cervical spine Assessment & Plan (06/16/2023 11:18 AM EST): Pt with c/o intermittent left sided neck pain with radiation to left arm Etiology ? Cervical radiculopathy ? Vs CTS Plan: C-sine x-rays, NCS upper extremities Neck pain on left side 06/16/2023 Assessment & Plan (03/09/2025 1:12 PM EDT): Pt with previous c/o intermittent left sided [...] and mod to severe bilateral foraminal narrowing Assessment & Plan (10/13/2023 3:53 PM EDT): Pt with previous c/o intermittent left sided neck pain with radiation to left arm for 2 months or so Etiology ? Cervical radiculopathy ? Vs CTS C-sine x-rays showed: Multilevel cervical spondylosis most notable at C5-C6. Correlation with clinical exam recommended to determine further management. If there is concern for fracture or other underlying pathology, MRI could be obtained for further evaluation. MRI ordered today Assessment & Plan (06/16/2023 11:20 AM EST): Pt with c/o intermittent left sided neck pain with radiation to left arm for 2 months or so Etiology ? Cervical radiculopathy ? Vs CTS Plan: C-sine x-rays, NCS upper extremities Common bile duct dilatation 06/04/2023 Assessment & Plan (08/30/2024 2:25 PM EDT): Patient here for a f/u Evaluated byGI, seen [place] [facility] [place], as part of their work up they ordered a CT scan of her abdomen done 05/13/2023 that showed: increase dilatation common bile duct but no evidence of calcified stone. Radiologist recommended correlation with Liver function tests. There was also a slightly increase dilatation of the main pancreatic duct at the head measuring up to 5 mm. Radiologist mentioned that MRI of abdomen with and without contrast could be considered. Of note back in [address] of her Abdomen with contrast at [facility] that showed: Minimal intrahepatic ductal dilatation and moderate dilatation of the common bile duct measuring between 11 and 13 mm and tapering distally. Pancreatic duct is also minimally dilated. No obvious choledocholithiasis or mass. Recommend correlation with liver enzymes to guide further management. This could be further assessed with MRCP or ERCP as appropriate. As a follow up Pt then had an MRCP 06/05/2017 at [facility] that showed: Biliary system: The common bile duct is normal in course measuring up to 0.9 cm in maximal diameter with no evidence for intrahepatic biliary ductal dilatation. No intraluminal filling defects are appreciated. Gallbladder: Surgically absent Pancreatic duct: The pancreatic duct is normal in course and caliber with no evidence for pancreatic ductal obstruction. Liver parenchyma is homogeneous in signal with no focal hepatic lesion appreciated. T2 bright 2 cm cyst in the posterior midpole of the right kidney. No visualized abnormalities are seen in the left kidney, adrenals, pancreatic parenchyma, or spleen. IMPRESSION: Status post cholecystectomy. Prominence to the common bile duct likely within upper normal limits for the postcholecystectomy state. No pancreatic or biliary ductal abnormality seen. No definitive evidence for obstruction or intraluminal filling defects. These findings were reviewed by her Outbound Sales Agent back then Subhash Regalado on 11/[address] Angio of Abdomen done 11/2020 showed no abnormalities. Given her weight loss and findings on CT with slight increase in Pancreatic duct dilatation MRI was ordered: MRI Abdomen 06/06/2023 showed: Mild extra hepatic and mild central intrahepatic ductal dilatation, unchanged from 2020 MRI. Most likely representing post cholecystectomy changes. No evidence of cholelithiasis. Minimal focal ectasia the most proximal portion of the pancreatic duct is also unchanged from 2020 likely a chronic benign finding per radiologist She was last seen by GI at [facility] [place] They recommended a trial of Colestipol Assessment & Plan (10/13/2023 12:01 PM EDT): Patient with weight loss, referred to GI, seen at [facility] [place]02[place]23, as part of their work up they ordered a CT scan of her abdomen done 05/13/2023 that showed: increase dilatation common bile duct but no evidence of calcified stone. Radiologist recommended correlation with Liver function tests. There was also a slightly increase dilatation of the main pancreatic duct at the head measuring up to 5 mm. Radiologist mentioned that MRI of abdomen with and without contrast could be considered. Of note back in [address] of her Abdomen with contrast at [facility] that showed: Minimal intrahepatic ductal dilatation and moderate dilatation of the common bile duct measuring between 11 and 13 mm and tapering distally. Pancreatic duct is also minimally dilated. No obvious choledocholithiasis or mass. Recommend correlation with liver enzymes to guide further management. This could be further assessed with MRCP or ERCP as appropriate. As a follow up Pt then had an MRCP 06/05/2017 at [facility] that showed: Biliary system: The common bile duct is normal in course measuring up to 0.9 cm in maximal diameter with no evidence for intrahepatic biliary ductal dilatation. No intraluminal filling defects are appreciated. Gallbladder: Surgically absent Pancreatic duct: The pancreatic duct is normal in course and caliber with no evidence for pancreatic ductal obstruction. Liver parenchyma is homogeneous in signal with no focal hepatic lesion appreciated. T2 bright 2 cm cyst in the posterior midpole of the right kidney. No visualized abnormalities are seen in the left kidney, adrenals, pancreatic parenchyma, or spleen. IMPRESSION: Status post cholecystectomy. Prominence to the common bile duct likely within upper normal limits for the postcholecystectomy state. No pancreatic or biliary ductal abnormality seen. No definitive evidence for obstruction or intraluminal filling defects. These findings were reviewed by her Outbound Sales Agent back then Subhash Regalado on 11/[address] Angio of Abdomen done 11/2020 showed no abnormalities. Given her weight loss and findings on CT with slight increase in Pancreatic duct dilatation MRI was ordered: MRI Abdomen 06/06/2023 showed: Mild extra hepatic and mild central intrahepatic ductal dilatation, unchanged from 2020 MRI. Most likely representing post cholecystectomy changes. No evidence of cholelithiasis. Minimal focal ectasia the most proximal portion of the pancreatic duct is also unchanged from 2020 likely a chronic benign finding per radiologist Assessment & Plan (06/16/2023 11:11 AM EST): Patient with weight loss, referred to GI, seen at [facility] [place], as part of their work up they ordered a CT scan of her abdomen done 05/13/2023 that showed: increase dilatation common bile duct but no evidence of calcified stone. Radiologist recommended correlation with Liver function tests. There was also a slightly increase dilatation of the main pancreatic duct at the head measuring up to 5 mm. Radiologist mentioned that MRI of abdomen with and without contrast could be considered. Of note back in [address] of her Abdomen with contrast at [facility] that showed: Minimal intrahepatic ductal dilatation and moderate dilatation of the common bile duct measuring between 11 and 13 mm and tapering distally. Pancreatic duct is also minimally dilated. No obvious choledocholithiasis or mass. Recommend correlation with liver enzymes to guide further management. This could be further assessed with MRCP or ERCP as appropriate. As a follow up Pt then had an MRCP 06/05/2017 at [facility] that showed: Biliary system: The common bile duct is normal in course measuring up to 0.9 cm in maximal diameter with no evidence for intrahepatic biliary ductal dilatation. No intraluminal filling defects are appreciated. Gallbladder: Surgically absent Pancreatic duct: The pancreatic duct is normal in course and caliber with no evidence for pancreatic ductal obstruction. Liver parenchyma is homogeneous in signal with no focal hepatic lesion appreciated. T2 bright 2 cm cyst in the posterior midpole of the right kidney. No visualized abnormalities are seen in the left kidney, adrenals, pancreatic parenchyma, or spleen. IMPRESSION: Status post cholecystectomy. Prominence to the common bile duct likely within upper normal limits for the postcholecystectomy state. No pancreatic or biliary ductal abnormality seen. No definitive evidence for obstruction or intraluminal filling defects. These findings were reviewed by her Outbound Sales Agent back then Subhash Regalado on 11/[address] Angio of Abdomen done 11/2020 showed no abnormalities. Given her weight loss and findings on CT with slight increase in Pancreatic duct dilatation MRI was ordered: MRI Abdomen 06/06/2023 showed: Mild extra hepatic and mild central intrahepatic ductal dilatation, unchanged from 2020 MRI. Most likely representing post cholecystectomy changes. No evidence of cholelithiasis. Minimal focal ectasia the most proximal portion of the pancreatic duct is also unchanged from 2020 likely a chronic benign finding per radiologist Assessment & Plan (06/04/2023 4:25 PM EST): Patient with weight loss, referred to GI, seen at [facility] [place], as part of their work up they ordered a CT scan of her abdomen done 05/13/2023 that showed: increase dilatation common bile duct but no evidence of calcified stone. Radiologist recommended correlation with Liver function tests. There was also a slightly increase dilatation of the main pancreatic duct at the head measuring up to 5 mm. Radiologist mentioned that MRI of abdomen with and without contrast could be considered. Of note back in [address] of her Abdomen with contrast at [facility] that showed: Minimal intrahepatic ductal dilatation and moderate dilatation of the common bile duct measuring between 11 and 13 mm and tapering distally. Pancreatic duct is also minimally dilated. No obvious choledocholithiasis or mass. Recommend correlation with liver enzymes to guide further management. This could be further assessed with MRCP or ERCP as appropriate. As a follow up Pt then had an MRCP 06/05/2017 at [facility] that showed: Biliary system: The common bile duct is normal in course measuring up to 0.9 cm in maximal diameter with no evidence for intrahepatic biliary ductal dilatation. No intraluminal filling defects are appreciated. Gallbladder: Surgically absent Pancreatic duct: The pancreatic duct is normal in course and caliber with no evidence for pancreatic ductal obstruction. Liver parenchyma is homogeneous in signal with no focal hepatic lesion appreciated. T2 bright 2 cm cyst in the posterior midpole of the right kidney. No visualized abnormalities are seen in the left kidney, adrenals, pancreatic parenchyma, or spleen. IMPRESSION: Status post cholecystectomy. Prominence to the common bile duct likely within upper normal limits for the postcholecystectomy state. No pancreatic or biliary ductal abnormality seen. No definitive evidence for obstruction or intraluminal filling defects. These findings were reviewed by her Outbound Sales Agent back then Subhash Regalado on 11/[address] Angio of Abdomen done 11/2020 showed no abnormalities. Given her weight loss and findings on CT with slight increase in Pancreatic duct dilatation abdi proceed with MRI juan. Follow up with me after MRI. Appointment has been scheduled for this Thursday. Costochondritis 01/08/2023 Assessment & Plan (07/10/2024 12:53 PM EST): Pt seen in the ER last month with c/o chest pain reproducible to touch. Work up in the ER included a Chest x-ray that was read as normal, EKG, Trop and D-Dimer all within normal limits ruling out ACS and PE. Pt was treated with analgesics and asked to follow up with PCP. Pt today tells me the pain resolved Assessment & Plan (01/08/2023 1:36 PM EDT): Pt seen in the ER last month with c/o chest pain reproducible to touch. Work up in the ER included a Chest x-ray that was read as normal, EKG, Trop and D-Dimer all within normal limits ruling out ACS and PE. Pt was treated with analgesics and asked to follow up with PCP. Pt today tells me the pain resolved Myofascial pain syndrome 01/08/2023 Assessment & Plan (07/07/2024 5:42 AM EST): Being followed at [facility] Diagnosed with this as well as intercostal Neuritis. Has been receiving trigger point injections Assessment & Plan (01/08/2023 12:59 PM EDT): Being followed at [facility] Diagnosed with this as well as intercostal Neuritis. Has been receiving trigger point injections Weight loss 11/13/2022 Assessment & Plan (03/09/2025 4:11 PM EDT): Images from the original note were not [...] renal cyst.Tracheal diverticulum. Pt was seen at [facility], last seen 09/17/2023 MRI Abdomen 06/06/2023 [...] Pt's weight has fluctuated in the past. Assessment & Plan (05/31/2024 4:30 PM EST): Pt's weight has stabilized Previously she had a 23 lb weight loss since 02/2023 her weight is now 152 lbs Most recent Work up included CBC, CMP, CRP,ESR, TSH Previous HIV, Normal Pt is up to date on Her Pap and Colorectal Cancer screening as well as Mammogram. Pt had an abdominal CT November 2020 that was unremarkable normal pancreas. Pt was referred to [facility], last seen 09/17/2023 MRI Abdomen 06/06/2023 showed: Mild extra hepatic and mild central intrahepatic ductal dilatation, unchanged from 202 MRI. Most likely representing post cholecystectomy changes. No evidence of cholelithiasis. Minimal focal ectasia the most proximal portion of the pancreatic duct is also unchanged from 2020 likely a chronic benign finding per radiologist Low dose CT lung cancer screen done 09/02/2023 was read as un remarkable Pt's weight has fluctuated in the past. Assessment & Plan (02/11/2024 2:07 PM EDT): Pt has gained 5 lbs since last time Previously she had a 23 lb weight loss since 02/2023 her weight is now 155 lbs Most recent Work up included CBC, CMP, CRP,ESR, TSH Previous HIV, Normal Pt is up to date on Her Pap and Colorectal Cancer screening as well as Mammogram. Pt had an abdominal CT November 2020 that was unremarkable normal pancreas. Pt was referred to [facility], last seen 09/17/2023 MRI Abdomen 06/06/2023 showed: Mild extra hepatic and mild central intrahepatic ductal dilatation, unchanged from 2020 MRI. Most likely representing post cholecystectomy changes. No evidence of cholelithiasis. Minimal focal ectasia the most proximal portion of the pancreatic duct is also unchanged from 2020 likely a chronic benign finding per radiologist Low dose CT lung cancer screen done 09/02/2023 was read as un remarkable Pt's weight has fluctuated in the past. Assessment & Plan (11/10/2023 4:18 PM EDT): Pt has had a 23 lb weight loss since 02/2023 her weight is down to 156 lbs Physical exam and vital signs today are within normal limits Most recent Work up included CBC, CMP, CRP,ESR, TSH Previous HIV, Normal Pt is up to date on Her Pap and Colorectal Cancer screening as well as Mammogram. Pt had an abdominal CT November 2020 that was unremarkable normal pancreas. Pt was referred to [facility], last seen 09/17/2023 MRI Abdomen 06/06/2023 showed: Mild extra hepatic and mild central intrahepatic ductal dilatation, unchanged from 2020 MRI. Most likely representing post cholecystectomy changes. No evidence of cholelithiasis. Minimal focal ectasia the most proximal portion of the pancreatic duct is also unchanged from 2020 likely a chronic benign finding per radiologist Low dose CT lung cancer screen done 09/02/2023 was read as un remarkable Pt's weight has fluctuated in the past. Assessment & Plan (10/13/2023 3:56 PM EDT): Pt has had a 20 lb weight loss since 02/2023 her weight is down to 159 lbs Physical exam and vital signs today are within normal limits Previous work up included CMP, HIV, TSH all Normal Pt is up to date on Her Pap and Colorectal Cancer screening as well as Mammogram. Pt had an abdominal CT November 2020 that was unremarkable normal pancreas. Pt was referred to [facility], last seen 09/17/2023 MRI Abdomen 06/06/2023 showed: Mild extra hepatic and mild central intrahepatic ductal dilatation, unchanged from 2020 MRI. Most likely representing post cholecystectomy changes. No evidence of cholelithiasis. Minimal focal ectasia the most proximal portion of the pancreatic duct is also unchanged from 202 likely a chronic benign finding per radiologist Low dose CT lung cancer screen as per Pulmonology note done 09/02/2023 ( notes requested) was read as un remarkable Pt's weight has fluctuated in the past. Plan: Today will proceed with repeat labs since last ones are over 1 year old Assessment & Plan (06/16/2023 11:11 AM EST): Pt has had a 20 lb weight loss since 02/2023 her weight is down again to 161 lbs Physical exam and vital signs today are within normal limits Previous work up included CMP, HIV, TSH all Normal Pt is up to date on Her Pap and Colorectal Cancer screening as well as Mammogram. Pt had an abdominal CT November 2020 that was unremarkable normal pancreas. Pt was referred to [facility] And referred for low dose CT lung cancer screen as well Pt's weight has fluctuated in the past. Plan: Pt scheduled for an MRI Abdomen to follow up on the CBD dilatation seen on CT. Referred to Lung Cancer Screening Program. I will also place a referral with a Event Av Operator to rule out Ocult malignancy Today her weight is stable at 162 Assessment & Plan (06/04/2023 4:31 PM EST): Pt has had a 20 lb weight loss since 02/2023 her weight is down again to 161 lbs Physical exam and vital signs today are within normal limits Previous work up included CMP, HIV, TSH all Normal Pt is up to date on Her Pap and Colorectal Cancer screening as well as Mammogram. Pt had an abdominal CT November 2020 that was unremarkable normal pancreas. Pt was referred to [facility] And referred for low dose CT lung cancer screen as well Pt's weight has fluctuated in the past. Plan: Pt scheduled for an MRI Abdomen to follow up on the CBD dilatation seen on CT. Referred to Lung Cancer Screening Program. I will also place a referral with a Event Av Operator to rule out Ocult malignancy Follow up with me in 1 week Assessment & Plan (03/10/2023 11:10 AM EDT): Pt's weight has stabilized Exam and vital signs today within normal limits Recent CMP and TSH Normal Pt up to date on Pap and Colorectal Cancer screen Promised to have Mammogram scheduled juan Weight stable at 182 lbs Plan: 3 months follow up to recheck her weight if not stabilized will proceed with further work up Pt acknowledges that her weight has fluctuated in the past similarly Recent Blood work in the ER was unremarkable Pt had an abdominal CT November 2020 that was unremarkable normal pancrease Pt has an appointment with GI coming up Referred for low dose CT lung cancer screen Assessment & Plan (01/08/2023 1:38 PM EDT): Pt has been loosing weight , and thought that it was associated with the cholesterol medication, other than that she has no particular symptoms and did not experience any side effects with the Crestor Exam and vital signs today within normal limits Recent CMP and TSH Normal Pt up to date on Pap and Colorectal Cancer screen Promised to have Mammogram scheduled juan Weight stable at 182 lbs Plan: 2 month follow up to recheck her weight if not stabilized will proceed with further work up Pt acknowledges that her weight has fluctuated in the past similarly Recent Blood work in the ER was unremarkable Pt had an abdominal CT November 2020 that was unremarkable normal pancrease Pt has an appointment with GI coming up Assessment & Plan (11/13/2022 1:23 PM EDT): Pt has been loosing weight , and thought that it was associated with the cholesterol medication, other than that she has no particular symptoms and did not experience any side effects with the Crestor Exam and vital signs today within normal limits Recent CMP and TSH Normal Pt up to date on Pap and Colorectal Cancer screen Promised to have Mammogram scheduled juan Plan: 1 month follow up to recheck her weight if not stabilized will proceed with further work up Pt acknowledges that her weight has fluctuated in the past similarly Lesion of palate 09/09/2022 Assessment & Plan (09/09/2022 3:42 PM EDT): [facility] health care 09/09/2022 Assessment & Plan (08/30/2024 3:25 PM EDT): Mammogram: 08/29/2024 [place] [facility] [place] Smear: 05/03/2024 Normal Colonoscopy: 12/04/[address] Regalado Assessment & Plan (06/04/2023 2:34 PM EST): Mammogram: 04/09/2023 Normal Pap Smear: 08/18/2018 Normal Colonoscopy: 12/04/[address] Regalado Assessment & Plan (11/13/2022 12:35 PM EDT): Mammogram: 10/25/2020 Normal Pap Smear: 08/18/2018 Normal Colonoscopy: 12/04/[address] Regalado Assessment & Plan (09/09/2022 1:00 PM EDT): Mammogram: 10/25/2020 Normal Pap Smear: 08/18/2018 Normal Colonoscopy: 12/04/[address] Regalado Peripheral polyneuropathy 09/09/2022 Assessment & Plan (05/31/2024 4:28 PM EST): On Gabapentin to 600 mg po TID She follows with Podiatry Assessment & Plan (02/11/2024 2:13 PM EDT): Still in pain despite Gabapentin 300mg TID and has had good effect on body pain, though burning pain in feet B/L persists. Plan: Increase Gabapentin to 600 mg po TID She follows with Podiatry Assessment & Plan (01/08/2023 1:00 PM EDT): On Gabapentin 300mg TID and has had good effect on body pain, though burning pain in feet B/L persists (mildly improved). She follows with Podiatry Assessment & Plan (09/09/2022 1:01 PM EDT): On Gabapentin 300mg TID and has had good effect on body pain, though burning pain in feet B/L persists (mildly improved). 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 Last seen 05/21/2024 Uterine prolapse 10/28/2016 Tobacco dependence syndrome 02/24/2013 Assessment & Plan (07/10/2024 12:52 PM EST): She had lung CT in August 2023 at [facility]. Lung RADS 1. Continue working on smoking cessation Assessment & Plan (06/04/2023 4:35 PM EST): Referred for Lung Cancer screen History of cholecystectomy 05/17/2012 Hyperlipidemia 02/13/2012 Assessment & Plan (03/09/2025 1:09 PM EDT): Most recent lipid profile from: Lipids elevated Lab Results Component Value Date TRIG 130 12/20/2024 TRIG 106 04/14/2023 CHOL 243 (H) 12/20/2024 CHOL 194 04/14/2023 LDLCHOLCAL 169 (H) 12/20/2024 LDLCHOLCAL 127 (H) 04/14/2023 HDL 48 12/20/2024 HDL 46 04/14/2023 Previously she was on Lipitor but this was discontinued after pt c/o muscle pain. Pt has been evaluated by Crane Operator and despite this her Lipids went even [...] start Praluent if she changes her mind Assessment & Plan (12/06/2024 1:02 PM EDT): Most recent lipid profile from: Lab Results Component Value Date TRIG 106 04/14/2023 TRIG 151 (H) 11/11/2022 CHOL 194 04/14/2023 LDLCHOLCAL 127 (H) 04/14/2023 HDL 46 04/14/2023 Previously she was on Lipitor but this was discontinued after pt c/o muscle pain. Pt has been evaluated by Crane Operator and despite this her Lipids went even higher. At some point she was started on Fenofibrate 54 mg po daily since her Lipids are elevated mainly at the expense of Triglycerides. Subsequently discontinued Pt is convinced that Rosuvastatin was causing her to loose weight so she stopped taking it. Will repeat Lipid profile Plan: Repeat Lipid profile Given that pt is convinced that the medication is causing her to loose weight we will hold statins for now We might consider start Praluent Assessment & Plan (08/30/2024 2:32 PM EDT): Most recent lipid profile from: Lab Results Component Value Date TRIG 106 04/14/2023 TRIG 151 (H) 11/11/2022 CHOL 194 04/14/2023 LDLCHOLCAL 127 (H) 04/14/2023 HDL 46 04/14/2023 Previously she was on Lipitor but this was discontinued after pt c/o muscle pain. Pt has been evaluated by Crane Operator and despite this her Lipids went even higher. At some point she was started on Fenofibrate 54 mg po daily since her Lipids are elevated mainly at the expense of Triglycerides. Subsequently discontinued Pt is convinced that Rosuvastatin was causing her to loose weight so she stopped taking it 1 week ago Plan: Repeat Lipid profile Given that pt is convinced that the medication is causing her to loose weight we will hold statins for now We might consider start Praluent Assessment & Plan (06/04/2023 2:52 PM EST): Most recent lipid profile from: 11/11/2022 a total cholesterol of: 358 triglycerides of: 151 HDL of: 59 and LDL of: 268 Previously she was on Lipitor but this was discontinued after pt c/o muscle pain. Pt has been evaluated by Crane Operator and despite this her Lipids went even higher. At some point she was started on Fenofibrate 54 mg po daily since her Lipids are elevated mainly at the expense of Triglycerides. Last visit we recommended to STOP. Pt is convinced that Rosuvastatin is causing her to loose weight so she stopped taking it 1 week ago Repeat Lipid profile Component Ref Range & Units 1 mo ago 6 mo ago 8 mo ago 2 yr ago 3 yr ago Triglycerides <150 mg/dL 106 151 High 144 249 High CM 157 High Comment: Desirable Triglyceride: less than 150 mg/dLBorderline High Triglyceride 150-199 mg/dLHigh Triglyceride: 200-499 mg/dLVery High Triglyceride: greater than or equal to 5OO mg/dL Cholesterol <200 mg/dL 194 Comment: Desirable Cholesterol: less than 200 mg/dLBorderline High Cholesterol: 200-239 mg/dLHigh Cholesterol: greater than 239 mg/dL LDL Cholesterol Calculated <100 mg/dL 127 High Comment: Desirable LDL: less than 100 mg/dLNear Optimal/Above Optimal LDL: 110-129 mg/dLBorderline High LDL: 130-159 mg/dLHigh LDL: 160-189 mg/dLVery High LDL: greater than or equal to 190 mg/dL HDL Cholesterol >40 mg/dL 46 59 R 51 R 43 Low R 56 R Plan: Given that pt is convinced that the medication is causing her to loose weight we will hold statins for now We might consider start Praluent Repeat Lipid profile next visit Assessment & Plan (03/10/2023 11:08 AM EDT): Most recent lipid profile from: 11/11/2022 a total cholesterol of: 358 triglycerides of: 151 HDL of: 59 and LDL of: 268 Previously she was on Lipitor but this was discontinued after pt c/o muscle pain . Pt has been evaluated by Crane Operator and despite this her Lipids went even higher At some point she was started on Fenofibrate 54 mg po daily since her Lipids are elevated mainly at the expense of Triglycerides.Last visit we recommended to STOP And she was started on [id number] mg po at bedtime Last visit she told me she never started the Rosuvastatin due to concerns it caused weight loss I tried to reassured her and she agreed to give it a try and to monitor her weight Plan: Repeat Lipid profile Assessment & Plan (01/08/2023 1:40 PM EDT): Most recent lipid profile from: 11/11/2022 a total cholesterol of: 358 triglycerides of: 151 HDL of: 59 and LDL of: 268 Previously she was on Lipitor but this was discontinued after pt c/o muscle pain . Pt has been evaluated by Crane Operator and despite this her Lipids went even higher At some point she was started on Fenofibrate 54 mg po daily since her Lipids are elevated mainly at the expense of Triglycerides.Last visit we recommended to STOP And she was started on [id number] mg po at bedtime Today she told me she never started the Rosuvastatin due to concerns it caused weight loss I tried to reassured her and she agreed to give it a try and to monitor her weight Plan: Continue current regimen Assessment & Plan (11/13/2022 1:24 PM EDT): Most recent lipid profile from: 11/11/2022 a total cholesterol of: 358 triglycerides of: 151 HDL of: 59 and LDL of: 268 Previously she was on Lipitor but this was discontinued after pt c/o muscle pain . Pt has been evaluated by Crane Operator and despite this her Lipids went even higher At some point she was started on Fenofibrate 54 mg po daily since her Lipids are elevated mainly at the expense of Triglycerides And she was started on Rosuvastatin. Pt called stating that she felt these medications were causing her to loose weight and these were discontinued Today pt denies any side effects from Rosuvastatin Plan: STOP Fenofibrate, restart Rosuvastatin 10 mg po at bedtime 1 month follow up Assessment & Plan (09/09/2022 12:58 PM EDT): Most recent lipid profile from: 02/04/2021 a total cholesterol of: 231 triglycerides of: 249 HDL of: 43 and LDL of: 150 Previously she was on Lipitor but this was doscontinued after pt c/o muscle pain . Pt has been evaluated by Crane Operator and despite this her Lipids went even higher She is on Fenofibrate 54 mg po daily since her Lipids are elevated mainly at the expense of Triglycerides Repeat Lipid profile Posttraumatic stress disorder 02/13/2012 Assessment & Plan (06/04/2023 4:35 PM EST): Reports seeing her therapist and psychiatric prescriber regularly Spina bifida occulta 02/13/2012 Assessment & Plan (09/09/2022 12:58 PM EDT): On a regimen of Ibuprofen and Cyclobenzaprine, will consider repeating her MRI if her LE pain does not improve with medications Substance abuse 02/13/2012 Assessment & Plan (11/10/2023 11:29 AM EDT): On Suboxone Assessment & Plan (10/13/2023 3:56 PM EDT): On Suboxone Assessment & Plan (06/04/2023 4:35 PM EST): On Suboxone Uterine leiomyoma 02/13/2012 Assessment & Plan (11/10/2023 11:39 AM EDT): Referred to [facility], has an appointment with [facility] Chronic obstructive pulmonary disease 11/28/2011 Assessment & Plan (12/06/2024 1:04 PM EDT): Patient is here for a follow up Seen in the past by [employer] Dr De Luna, diagnosed with mild COPD Last note 06/26/2017 She uses Pro-Air prn. In the past she was on Advair 250/50 1 puff BID prescribed [address] Pereira no longer on it She had the PFTs done 03/20/2023 that showed a normal spirometry, no significant response with bronchodilator, TLC Normal I referred her to the Lung Cancer screening [place] at [facility] >[address] on record: 11/15/2020 showed no lung nodules or lesions Referred to C[employer] Production Plant Operator seen: 09/10/2023. He reviewed PFTs as normal and Low dose CT [place] [facility] [place] that he also read as unremarkable He recommended to proceed with a stress test, ECHO and Sleep study and follow up with him afterwards. It appears that pt missed the follow up appointment she was seen by Dr Pacheco who ordered an ECHO ( scheduled for December 04) and repeat PFTs (scheduled for 10/04/2024) pt reminded of both appointments last visit. She missed them both. Assessment & Plan (08/30/2024 3:21 PM EDT): Patient is here for a follow up Seen in the past by [employer] Dr De Luna, diagnosed with mild COPD Last note 06/26/2017 She uses Pro-Air prn. In the past she was on Advair 250/50 1 puff BID prescribed by Dr Pereira no longer on it She had the PFTs done 03/20/2023 that showed a normal spirometry, no significant response with bronchodilator, TLC Normal I referred her to the Lung Cancer screening [place] at [facility] >[address] on record: 11/15/2020 showed no lung nodules or lesions Referred to [employer] Production Plant Operator seen: 09/10/2023. He reviewed PFTs as normal and Low dose CT [place] [facility] [place] that he also read as unremarkable He recommended to proceed with a stress test, ECHO and Sleep study and follow up with him afterwards. It appears that pt missed the follow up appointment she was seen by Dr Pacheco who ordered an ECHO ( scheduled for December 04) and repeat PFTs (scheduled for 10/04/2024) pt reminded of both appointments today Assessment & Plan (07/07/2024 5:41 AM EST): Patient is here for a follow up Seen in the past by [employer] Dr De Luna, diagnosed with mild COPD Last note 06/26/2017 She uses Pro-Air prn. In the past she was on Advair 250/50 1 puff BID prescribed by Dr Pereira no longer on it She had the PFTs done 03/20/2023 that showed a normal spirometry, no significant response with bronchodilator, TLC Normal I referred her to the Lung Cancer screening [place] at [facility] >[address] on record: 11/15/2020 showed no lung nodules or lesions Referred to C[employer] Production Plant Operator seen: 09/10/2023. He reviewed PFTs as normal and [place] [facility] [place] that he also read as unremarkable He recommended to proceed with a stress test, ECHO and Sleep study and follow up with him afterwards Assessment & Plan (10/13/2023 11:59 AM EDT): Patient is here for a follow up Seen in the past by [employer] Dr De Luna, diagnosed with mild COPD Last note 06/26/2017 She uses Pro-Air prn. In the past she was on Advair 250/50 1 puff BID prescribed by Dr Pereira no longer on it She had the PFTs done 03/20/2023 that showed a normal spirometry, no significant response with bronchodilator, TLC Normal I referred her to the Lung Cancer screening [place] at [facility] >[address] on record: 11/15/2020 showed no lung nodules or lesions Referred to [employer] Production Plant Operator seen: 09/10/2023. He reviewed PFTs as normal and [place] [facility] [place] that he also read as unremarkable He recommended to proceed with a stress test, ECHO and Sleep study and follow up with him afterwards Assessment & Plan (06/16/2023 11:15 AM EST): Patient is here for a follow up Seen in the past by [employer] Dr De Luna, diagnosed with mild COPD Last note 06/26/2017 She uses Pro-Air prn. In the past she was on Advair 250/50 1 puff BID prescribed by Dr Pereira no longer on it She had the PFTs done 03/20/2023 that showed a normal spirometry, no significant response with bronchodilator, TLC Normal I referred her to the Lung Cancer screening [place] at [facility] >[address] on record: 11/15/2020 showed no lung nodules or lesions Referred to C[employer] Production Plant Operator , appointment scheduled for 07/29/2023 given her complaints of intermittent difficulty breathing. Today she tells me they moved her appointment to [facility] Assessment & Plan (06/04/2023 4:09 PM EST): Patient is here for a follow up Seen in the past by [employer] Dr De Luna, diagnosed with mild COPD Last note 06/26/2017 She uses Pro-Air prn. In the past she was on Advair 250/50 1 puff BID prescribed by Dr Pereira no longer on it She had the PFTs done 03/20/2023 that showed a normal spirometry, no significant response with bronchodilator, TLC Normal I referred her to the Lung Cancer screening [place] at [facility] >[address] on record: 11/15/2020 showed no lung nodules or lesions Referred to [employer] Production [employer] Operator , appointment scheduled for 07/29/2022 given her complaints of intermittent difficulty breathing. Assessment & Plan (03/10/2023 11:07 AM EDT): Seen in the past by [employer] Dr De Luna, diagnosed with mild COPD Last note 06/26/2017 She uses Pro-Air prn In the past she was on Advair 250/50 1 puff BID prescribed by Dr Pereira no longer on it Plan: Repeat PFTs none recent. Appointment already scheduled for 03/20/2023 Will enroll in the Lung Cancer screening [place] at [facility] >30 pack years Will refer to [employer] Operator [facility] Assessment & Plan (01/08/2023 1:36 PM EDT): Seen in the past by [employer] Dr De Luna, diagnosed with mild COPD Last note 06/26/2017 She uses Pro-Air prn In the past she was on Advair 250/50 1 puff BID prescribed by Dr Pereira no longer on it Plan: Repeat PFTs none recent Will enroll in the Lung Cancer screening [place] at [facility] >30 pack years Resolved Problems Problem Noted Date Diagnosed Date Resolved Date Acquired hypothyroidism 09/09/202202/14 Assessment & Plan (05/31/2024 4:29 PM EST): Previously Seen by Endocrinology, who thought pt had subclinical hypothyroidism and recommended to repeat TPO Abs and Free TSH and T4 and to continue with Synthroid 25 mcg and f/u with her PRN TSH 02/04/2021 was elevated at 5.13. Synthroid was then increased to 50 mcg po daily. Pt then told me that she never took the Synthroid TFTs 05/02/2021 were now within normal limits Repeat TSH 05/06/2024 normal OFF Synthroid will continue to observe Assessment & Plan (10/13/2023 3:55 PM EDT): Previously Seen by Endocrinology, who thought pt had subclinical hypothyroidism and recommended to repeat TPO Abs and Free TSH and T4 and to continue with Synthroid 25 mcg and f/u with her PRN TSH 02/04/2021 was elevated at 5.13. Synthroid was then increased to 50 mcg po daily. Pt then told me that she never took the Synthroid TFTs 05/02/2021 were now within normal limits Repeat TSH 08/2022 normal OFF Synthroid will continue to observe Will repeat Assessment & Plan (11/13/2022 12:41 PM EDT): Previously Seen by Endocrinology, who thought pt had subclinical hypothyroidism and recommended to repeat TPO Abs and Free TSH and T4 and to continue with Synthroid 25 mcg and f/u with her PRN TSH 02/04/2021 was elevated at 5.13. Synthroid was then increased to 50 mcg po daily. Pt then told me that she never took the Synthroid TFTs 05/02/2021 were now within normal limits Repeat TSH 08/2022 normal OFF Synthroid will continue to observe Assessment & Plan (09/09/2022 1:04 PM EDT): Previously Seen by Endocrinology, who thought pt had subclinical hypothyroidism and recommended to repeat TPO Abs and Free TSH and T4 and to continue with Synthroid 25 mcg and f/u with her PRN TSH 02/04/2021 was elevated at 5.13. Synthroid was then increased to 50 mcg po daily. Pt then told me that she never took the Synthroid Repeat TFTs 05/02/2021 were now within normal limits Plan: Since TFTs were normal OFF Synthroid will continue to observe Will repeat. Dysuria 11/23/2017 09/09/2022 Encounters Date Type Department Care Team Description 03/09/2025 1:15 PM EDT Office Visit [facility] MED[facility] [address] [place] [id number] Teodoro Bone MD Primary hypertension (Primary Dx); Mixed hyperlipidemia; TMJ tenderness, bilateral; Neck pain on left side; Abnormality of palate; Weight loss; Tinea; Sore throat 03/09/2025 Refill [facility] [address] [place] [address] [phone] Smitha Wharton FNP COVID 03/09/2025 Travel 03/08/2025 Telephone [facility] MED[facility] [address] [place] [phone] Teodoro Bone MD chart prep 03/06/2025 Patient Outreach [facility] [address] [place] [address] [phone] Teodoro Bone MD 03/04/2025 Refill [facility] [address] [place] [address] Teodoro Bone MD Primary hypertension; Seasonal allergies 03/01/2025 Patient Outreach [facility] [address] [place] [address] Teodoro Bone MD Care Coordination (C3 CM-CHW Bianca Lewis telephone call outreach) 02/27/2025 Patient Outreach [facility] [address] [place] [address] [phone] Teodoro Bone MD Care Management (C3CM- f/u call) 02/16/2025 Patient Outreach [facility] [address] [place] [phone] Teodoro Bone MD Care Management (C3CM- f/u call) 02/15/2025 Patient Outreach [facility] [address] [place] [address] [phone] Teodoro oBne MD Care Coordination (C3 CM-CHW Bianca Lewis telephone call outreach) 02/06/2025 Patient Outreach [facility] [address] [place] [phone] Teodoro Bone MD Care Management (C3CM- f/u call) 01/31/2025 Patient Outreach [facility] [address] [place] [address] [phone] Teodoro Bone MD Care Coordination (C3 CM-CHW Bianca Lewis telephone call outreach) 01/23/2025 Refill [facility] [address] [place] [address] [phone] Teodoro Bone MD Tinea 01/20/2025 Patient Outreach [facility] [address] [place] [address] [phone] Teodoro Bone MD Care Coordination (C3 CM-CHW Bianca Lewis telephone call outreach //) 01/20/2025 Patient Outreach [address] [address] Teodoro Bone MD Care Management (C3CM- 1st f/u call. lvm) 01/06/[address] [address] Teodoro Bone MD 01/06/2025 Patient Outreach [address] [address] Teodoro Bone MD Care Coordination 01/06/2025 Plan of Care Documentation [address] [address] 01/05/2025 Patient Outreach [address] [address] Teodoro Bone MD Care Management (C3CM- initial assessment/ enrollment) 01/03/2025 Patient Outreach [address] [address] Teodoro Bone MD Care Coordination (C3 CM-[facility] Bianca Lewis telephone call outreach) 01/02/2025 Results Follow-Up [address] [address] Abdomen Pelvis w/o Contrast 12/29/2024 2:00 PM EDT Office Visit [address] [address] Willis Greene CNM Dysuria (Primary Dx); Vaginal itching; Flank pain 12/29/2024 Travel 12/29/[address] [address] Teodoro Bone MD Nurse Triage 12/27/2024 Patient Outreach [address] [address] Teodoro Bone MD Care Coordination (C3 CM-[facility] Bianca Lewis telephone call outreach) 12/27/2024 Patient Outreach [facility] [address] [place] [phone] Teodoro Bone MD Care Coordination ([facility] Bianca Lewis telephone call outreach) 12/26/2024 Patient Outreach [facility] [address] [place] [address] Teodoro Bone MD 12/22/2024 Refill [facility] [address] [place] [address] [phone] Kelli Sommer, RN Primary hypertension (Primary Dx) 12/21/2024 Refill [facility] [address] [place] [phone] Teodoro Bone MD UTI symptoms 12/20/2024 10:40 AM EDT Office Visit [facility] [address] [place] [phone] Jaclyn Romano MD UTI symptoms (Primary Dx); Bladder infection; Vaginal itching 12/20/2024 Travel 12/19/2024 Orders Only [facility] [address] [place] [phone] Dalton Leslie CNP Dysuria (Primary Dx) 12/19/[address] [address] Malaika Ramos, NUBIA 12/19/[address] [address] Teodoro Bone MD Med Refill 12/14/2024 3:15 PM EDT Office Visit [facility] [address] [place] [address] [phone] Dalton Leslie CNP Dysuria (Primary Dx); Hematuria, unspecified type 12/14/2024 Orders Only [facility] [address] [place] [address] [phone] Dalton Leslie CNP 12/14/2024 Travel 12/13/[address] [address] Yadira Correa MA CHARTPREP 12/12/[address] [address] Latoya Eckert RN NTTS Triage 12/12/2024 Patient Outreach [address] [address] Teodoro Bone MD 12/12/2024 Patient Outreach [address] [address] Teodoro Bone MD Care Management (C3- chart review) 12/12/2024 Patient Outreach [address] [address] Teodoro Bone MD 12/09/[address] [address] Teodoro Bone MD Nurse Triage 12/07/[address] [address] Teodoro Bone MD Heartburn from Last 3 Months Immunizations Immunization Administration Dates Next Due Hep A, Adult 08/18/2018,07/21/2006,02/04/2006 Hep B, adult 07/21/2006,03/17/2006,02/04/2006 Influenza injectable quadriv alent preservative free 03/10/2023,08/18/2018,03/19/2017 Influenza, Split (incl. adrienne fied surface antigen) 02/24/2013,02/13/2012 Moderna Covid-19 Vaccine 12+ 06/12/2021,09/22/19 21,08/24/2020 Pneumococcal Polysaccharide PPSV23 05/31/2017 TD (adult), 2 Lf tetanus tox oid, preservative free, adsorbed 05/28/2017,04/19/2009 Tdap 02/24/2013 Zoster, Recombinant 09/25/2022,06/30/2022 Social History Tobacco Use Types Packs/Day Years Used Date Smoking Tobacco: Some Days Cigarettes 0.3 35.7 Started: 1989 Passive Smoke Exposure: Current Smokeless Tobacco: Never Tobacco Cessation:Ready to Q uit: Not Asked; Counseling Given: Not Answered Comments:5 a day Alcohol Use Standard Drinks/Week [...] not to disclose 2021 10:18 AM EDT Last Filed Vital Signs Vital Sign Reading Time Taken Comments Blood Pressure 138/82 03/09/2025 1:28 PM EDT Pulse 88 03/09/2025 1:10 PM EDT Temperature 36.9 C (98.5 F) 03/09/2025 1:10 PM EDT Respiratory Rate 20 03/09/2025 1:10 PM EDT Oxygen Saturation 99% 12/29/2024 1:37 PM EDT Inhaled Oxygen Concentration - - Weight 69.6 kg (153 lb 6.4 oz) 03/09/2025 1:10 P M EDT Height 167.6 cm (5' 6 ) 12/14/2024 2:54 PM EDT Body Mass Index 24.76 12/14/2024 2:54 PM EDT Plan of Treatment Upcoming Encounters Date Type Department Care Team (Late st Contact Info) Description 05/30/2025 1:15 PM EST Office Visit [facility] MED[facility] [address] [place] [address] Teodoro Bone MD [address] [place] [address] Health Maintenance Due Date Last Done Comments CT Colonography 1968 Dental X-Ray: Bitewings 1968 Dental X-Ray: Full Mouth 1968 FIT DNA/Cologuard 1968 FIT 1970 FOBT 1970 Sigmoidoscopy 1970 Hepatitis C Screening 1986 Pneumococcal Vaccine: 50+ Years (2 of 2 - PCV) 05/31/2018 05/31/2017 Colonoscopy 12/04/2018 12/04/2017 Colorectal Cancer Screening 12/04/2018 Dental Oral Exam 11/20/2022 05/21/2022 Dental Prophylaxis 11/20/2022 05/21/2022 COVID-19 Vaccine ( season) 2025 09/10/2023, 06/12/2021, 09/21/2020, Additional history exists Influenza Vaccine (#1) 2025 , 08/18/2018, 03/19/2017, Additional history exists Alcohol/Substance Use Screening 05/31/2025 05/31/2024 Depression Monitoring 07/08/2025 01/05/2025, 025 Mammogram 08/25/2025 04/09/2023, 10/13, 10/25/2020, Additional history exists Tobacco Screening 12/29/2025 12/29/2024 SDOH Screening 01/03/2026 01/03/2025 Disability Screening 03/09/2026 03/09/2025 DTaP/Tdap/Td Vaccines (3 - Td or Tdap) 05/28/2027 05/28/2017, 02/24/2013, 04/19/2009 Cervical Cancer Screening 05/03/2029 HPV/Cotest 05/03/2029 08/18/2018, 08/18/2018 Pap Smear 05/03/2029 05/03/2024, 02/13, 02/26/2021, Additional history exists Lipid Panel 12/20/2029 12/20/2024, 03/17, 11/11/2022, Additional history exists RSV Patients and Patients Aged 60 years or older (1 - 1-dose 75+ series) 2043 Hepatitis B Vaccines Completed 07/21/2006, 03/17/2006, 02/04/2006 Hepatitis A Vaccines Completed 08/18/2018, 07/21/2006, 02/04/2006 HIV Screening Completed 09/09/2022, 02/26/2021 Zoster Vaccines Completed 09/25/2022, 06/30/2022 HIB Vaccines [...] patient's age to complete this topic Meningococcal Vaccine Aged Out No andressa chelsea eligible based on patient's age to complete this topic RSV under 20 months Aged Out No longe r eligible based on patient's age to complete this topic Rotavirus Vaccines Aged Out No longer eligible based on patient's age to complete this topic Procedures Procedure Name Priority Date/Time Associated Diagnosis Comments CBC WITH AUTO DIFFERENTIAL Routine 03/09/2025 2:24 PM EDT Abnormality of palate COMPREHENSIVE METABOLIC PANEL Routine 03/09/2025 2:24 PM EDT Primary hypertension POCT RAPID STREP A Routine 03/09/2025 1: 55 PM EDT Sore throat POCT INFLUENZA B (ID NOW RAPID MOLECULAR) Routine 03/09/2025 1:55 PM EDT Sore throat POCT INFLUENZA A (ID NOW RAPID MOLECULAR) Routine 03/09/2025 1:55 PM EDT Sore throat POCT COVID-19 AG WRIGHT ID NOW Routine 03/09/2025 1:55 PM EDT Sore throat CT ABDOMEN PELVIS WO CONTRAST STAT 12/31/2024 8:00 AM EDT Flank pain COMPREHENSIVE METABOLIC PANEL Routine 12/29/2024 3:11 PM EDT Primary hypertension BACTERIAL VAGINOSIS PANEL Routine 12/29/2024 2:29 PM EDT Vaginal itching CULTURE, URINE, ROUTINE Routine 12/29/2024 2:29 PM EDT Dysuria POCT WET MOUNT/CHANTELLE Routine 12/29/2024 2: 26 PM EDT Vaginal itching POCT URINALYSIS DIPSTICK Routine 12/29/2024 2:01 PM EDT Dysuria CBC WITH AUTO DIFFERENTIAL Routine 12/20/2024 11:09 AM EDT Dysuria LIPID PANEL, STANDARD Routine 12/20/2024 11:09 AM EDT Mixed hyperlipidemia COMPREHENSIVE METABOLIC PANEL Routine 12/20/2024 11:09 AM EDT Primary hypertension BACTERIAL VAGINOSIS PANEL Routine 12/20/2024 10:55 AM EDT Vaginal itching CULTURE, URINE, ROUTINE Routine 12/20/2024 10:55 AM EDT Bladder infection POCT URINALYSIS DIPSTICK Routine 12/20/2024 10:31 AM EDT Bladder infection POCT URINALYSIS DIPSTICK Routine 12/14/2024 3:15 PM EDT Dysuria CULTURE, URINE, ROUTINE Routine 12/14/2024 12:00 AM EDT HM PAP/HPV Routine 05/03/2024 10:27 AM EST BI MAMMOGRAM SCREENING TOMOSYNTHESIS BILATERAL Routine 04/09/2023 9:50 AM EDT HIV 1/2 ANTIGEN/ANTIBODY, FOURTH GENERATION W/RFL Routine 09/09/2022 11:18 AM EDT PROPHYLAXIS - ADULT Routine 05/21/2022 1 :00 PM EST PERIODIC ORAL EVALUATION - ESTABLISHED PATIENT Routine 05/21/2022 1:00 PM EST ZZZ HISTORICAL HPV MRNA E6/E7 Routine 08/18/2018 12:00 AM EST HM COLONOSCOPY Routine 12/04/2017 from Last 3 Months or Most Recently Relevant to Health Maintenance Results * CBC auto differential (03/09/2025 2:24 PM EDT) Only the most recent of2 resultswithin the time period is included. White Blood Count 6.0 4.8 - 10.8 X10*3/uL [facility] Red Blood Count 4.69 4.20 - 5.50 X10*6/uL [facility] Hemoglobin 14.0 12.0 - 16.0 g/dl [facility] Hematocrit 41.8 37.0 - 47.0 % [facility] Mean Corpuscular Volume 89.1 80.0 - 98.0 fL [facility] Mean Corpuscular Hemoglobin 29.9 27.0 - 33.0 pg [facility] Mean Corpuscular HGB Conc 33.5 31.0 - 35.0 g/dl [facility] Red Cell Distribution Width 13.2 11.0 - 16.0 % [facility] Platelet Count 319 160 - 400 X10*3/uL [facility] Mean Platelet Volume 9.8 9.4 - 12.3 fL [facility] Neutrophils Percent Auto 50.8 45 - 73 % [facility] Imm Gran Pct Auto 0.3 0.0 - 0.4 % [facility] Lymphocytes Percent Auto 39.3 20 - 40 % [facility] Monocytes Percent Auto 7.6 2 - 11 % [facility] Eosinophils Percent Auto 1.5 0 - 4 % [facility] Basophils Percent Auto 0.5 0 - 2 % [facility] NRBC Pct Auto 0.0 0.0 - 0.2 /100WBC [facility] Neutrophils Absolute Auto 3.0 2.0 - 8.3 x10*3/uL [facility] Imm Gran Abs Auto 0.02 0.00 - 0.03 X10*3/uL [facility] Lymphocytes Absolute Auto 2.3 1.2 - 4.9 X10*3/uL [facility] Monocytes Absolute Auto 0.5 0.1 - 1.2 X10*3/uL [facility] Eosinophils Absolute Auto 0.1 0.0 - 0.4 X10*3/uL [facility] Basophils Absolute Auto 0.0 0.0 - 0.2 X10*3/uL [facility] NRBC Abs Auto 0.000 0.0 - 0.012 X10*3/uL [facility] Blood Venous blood specimen / Unknown 03/09/2025 2:24 PM EDT 03/09/2025 5:56 PM EDT us Teodoro Brown MD LAB BLOOD ORDERABLES Final Result [facility] [address] [place] [phone] * (ABNORMAL) Comprehensive Metabolic Panel (03/09/2025 2:24 PM EDT) Only the most recent of3 resultswithin the time period is included. Sodium 141 135 - 145 mmol/L [facility] Potassium 3.8 3.3 - 5.1 mmol/L [facility] Chloride 101 96 - 108 mmol/L [facility] Carbon Dioxide 31(H) 22 - 29 mmol/L [facility] Anion Gap 13 12 - 20 [facility] Urea Nitrogen (BUN) 7(L) 9 - 16 mg/dL [facility] Creatinine, Serum 0.72 0.5 - 1.4 mg/dL [facility] Estimated Glomerular Filt Rate >60 [facility] Comment:Chronic Kidney Disea se: Estimated GFR < 60 mL/min/1.68v0Rodphd Kidney Disease: Estimated GFR < 15 mL/min/1.73m2 Glucose 89 60 - 115 mg/dL [facility] Calcium 9.7 8.4 - 10.2 mg/dL [facility] Bilirubin, Total 0.4 0.0 - 1.0 mg/dL [facility] Aspartate Amino Transferase 19 5 - 31 U/L [facility] Alanine Aminotransferase 11 0 - 31 U/L [facility] Total Protein 7.1 6.5 - 8.0 g/dL [facility] Albumin Level 4.5 3.5 - 5.0 g/dL [facility] Alkaline Phosphatase 56 39 - 117 U/L [facility] Blood Venous blood specimen / Unknown 03/09/2025 2:24 PM EDT 03/09/2025 5:56 PM EDT Teodoro Brown MD LAB BLOOD ORDERABLES Final Result Performing Organization Address City/[facility]/ZIP Co de Phone Number [facility] [address] [place] [phone] * POCT Rapid Influenza B WRIGHT ID NOW (03/09/2025 1:55 PM EDT) Influenza B Negative Negative, Indeterminate [facility] QC Media Lot # [id number] [facility] Lot# Expiration Date [facility] Swab 03/09/2025 1:55 PM EDT us Teodoro Brown MD POINT OF CARE TEST EN TER/EDIT ORDERABLES Final Result [facility] [address] [place] [address] [phone] * POCT Rapid Influenza A WRIGHT ID NOW (03/09/2025 1:55 PM EDT) [facility] Influenza A Negative Negative, Indeterminate [facility] QC Media Lot # [id number] [facility] Lot# Expiration Date [facility] Swab 03/09/2025 1:55 PM EDT Teodoro Brown MD POINT OF CARE TEST EN TER/EDIT ORDERABLES Final Result Performing Organization Address [facility] Co de Phone Number [facility] [address] [place] [address] [phone] * POCT Rapid Covid-19 WRIGHT ID NOW (03/09/2025 1:55 PM EDT) [facility] Coronavirus Antigen PCR Negative Negative, Indeterminate, None Detected, Invalid, Specimen unsatisfactory for evaluation, Weakly Positive, 2+ [facility] QC Media Lot # [id number] [facility] Lot# Expiration Date [facility] Swab 03/09/2025 1:55 PM EDT Teodoro Brown MD POINT OF CARE TEST EN TER/EDIT ORDERABLES Final Result Performing Organization Address [facility] Co de Phone Number [facility] [address] [place] [address] [phone] * POCT Rapid Strep A OSOM (03/09/2025 1:55 PM EDT) [facility] Rapid Strep A Screen Negative Negative, None Detected [facility] QC Media Lot # [id number] [facility] Lot# Expiration Date ,025 [facility] Swab 03/09/2025 1:55 PM EDT us Teodoro Brown MD POINT OF CARE TEST EN TER/EDIT ORDERABLES Final Result [facility] [address] [place] [phone] * CT Abdomen Pelvis w/o Contrast (12/31/2024 8:00 AM EDT) Anatomical Region Laterality Modality Body, Pelvis, Abdomen Computed T omography 12/31/2024 8:00 AM EDT Narrative 01/02/2025 7:14 AM EDT [address] [address] [address] Scan Report Signed Patient: Bianca Ward MR#: [id number] 3 : 1970 Acct:[id number] Age/Sex: 54 / F ADM Date: 12/31/24 Loc: HO.CT Attending Dr: Willis Greene CNM Ordering Physician: WILLIS GREENE CNM Date of Service: 12/31/24 Procedure(s): CT abdomen pelvis wo IV con Accession Number(s): [id number] cc: Teodoro Hubbard MD; WILLIS GREENE CNM Report Number: [id number]: Total DLP = 410.00 mGy-cm EXAMINATION: CT ABDOMEN PELVIS WITHOUT IV CONTRAST HISTORY: rule out kidney stone COMPARISON: Comparison is made with a prior CT of the abdomen with contrast dated 05/15/2017. TECHNIQUE: CT scan of the abdomen and pelvis was performed without contrast using standard departmental protocol. Coronal and sagittal reformatted images were generated and reviewed. Oral contrast material was not administered per department protocol. This CT exam was performed with one or more of the following dose reduction techniques: automated exposure control, adjustment of the mA and/or kV according to patient size, use of iterative reconstruction technique. DLP: 410 mGy-cm FINDINGS: LOWER CHEST: The visualized lung bases are clear. There is no pleural effusion. CARDIOVASCULATURE: The heart is normal in size. There is no pericardial effusion. LIVER: The liver is normal in size and contour. The liver has an unremarkable unenhanced appearance. GALLBLADDER / BILE DUCTS: The gallbladder is surgically absent. There is no intra or extrahepatic biliary ductal dilatation. SPLEEN: The spleen is normal in size and has an unremarkable unenhanced appearance. PANCREAS: The pancreas has an unremarkable unenhanced appearance. ADRENAL GLANDS: Unremarkable. KIDNEYS/RETROPERITONEUM: No renal or ureteral calculi are identified. There is no hydronephrosis or hydroureter. Again seen is a 3.1 cm cyst in the interpolar region of the right kidney. LYMPH NODES: No retroperitoneal lymphadenopathy is identified in the abdomen or pelvis. VASCULATURE: The abdominal aorta is normal in caliber. MESENTERY/PERITONEUM: No free fluid. No masses. There is no free intraperitoneal gas. STOMACH: The stomach is unremarkable. SMALL BOWEL: The small bowel is normal in caliber. COLON: There is a moderate amount of stool throughout the colon. APPENDIX: Normal. URINARY BLADDER/PELVIC ORGANS: The urinary bladder is collapsed, limiting evaluation. The uterus has an unremarkable unenhanced appearance. The patient is status post bilateral tubal ligation. BONES / SOFT TISSUES: Soft tissue densities in the subcutaneous fat of the anterior abdominal wall are likely related to subcutaneous injections. The bones are intact. CT/CT abdomen pelvis wo IV con IMPRESSION: 1. No evidence of nephrolithiasis or ureteral obstruction. 2. Moderate amount of stool throughout the colon. Electronically signed by: Philip Aguilar MD 01/02/2025 07:11 AM EDT Dictated By: Philip Aguilar MD Signed By: <Electronically signed by Philip Aguilar MD in OV> 01/02/25 0711 DD/ 0800 TD/TT: 12/31/24 0808 Hair Clipper Power: Procedure Note Donotshawninterpreter, Image - 01/02/[address] [place] [address] [address] Scan Report Signed Patient: Bianca Ward [facility]#: [id number] 3 : 1970Acct:[id number] Age/Sex: 54 / FADM Date: 12/31/24 Loc: HO.CT Attending Dr: Willis Greene CNM Ordering Physician: WILLIS GREENE CNM Date of Service: 12/31/24 Procedure(s): CT abdomen pelvis wo IV con Accession Number(s): [id number] cc: Teodoro Hubbard MD; WILLIS GREENE CNM Report Number: [id number]: Total DLP = 410.00 mGy-cm EXAMINATION: CT ABDOMEN PELVIS WITHOUT IV CONTRAST HISTORY: rule out kidney stone COMPARISON: Comparison is made with a prior CT of the abdomen with contrast dated 05/15/2017. TECHNIQUE: CT scan of the abdomen and pelvis was performed without contrast using standard departmental protocol. Coronal and sagittal reformatted images were generated and reviewed. Oral contrast material was not administered per department protocol. This CT exam was performed with one or more of the following dose reduction techniques: automated exposure control, adjustment of the mA and/or kV according to patient size, use of iterative reconstruction technique. DLP: 410 mGy-cm FINDINGS: LOWER CHEST: The visualized lung bases are clear. There is no pleural effusion. CARDIOVASCULATURE: The heart is normal in size. There is no pericardial effusion. LIVER: The liver is normal in size and contour. The liver has an unremarkable unenhanced appearance. GALLBLADDER / BILE DUCTS: The gallbladder is surgically absent. There is no intra or extrahepatic biliary ductal dilatation. SPLEEN: The spleen is normal in size and has an unremarkable unenhanced appearance. PANCREAS: The pancreas has an unremarkable unenhanced appearance. ADRENAL GLANDS: Unremarkable. KIDNEYS/RETROPERITONEUM: No renal or ureteral calculi are identified. There is no hydronephrosis or hydroureter. Again seen is a 3.1 cm cyst in the interpolar region of the right kidney. LYMPH NODES: No retroperitoneal lymphadenopathy is identified in the abdomen or pelvis. VASCULATURE: The abdominal aorta is normal in caliber. MESENTERY/PERITONEUM: No free fluid. No masses. There is no free intraperitoneal gas. STOMACH: The stomach is unremarkable. SMALL BOWEL: The small bowel is normal in caliber. COLON: There is a moderate amount of stool throughout the colon. APPENDIX: Normal. URINARY BLADDER/PELVIC ORGANS: The urinary bladder is collapsed, limiting evaluation. The uterus has an unremarkable unenhanced appearance. The patient is status post bilateral tubal ligation. BONES / SOFT TISSUES: Soft tissue densities in the subcutaneous fat of the anterior abdominal wall are likely related to subcutaneous injections. The bones are intact. CT/CT abdomen pelvis wo IV con IMPRESSION: 1. No evidence of nephrolithiasis or ureteral obstruction. 2. Moderate amount of stool throughout the colon. Electronically signed by: Philip Aguilar MD 01/02/2025 07:11 AM EDT RP Dictated By: Philip Aguilar MD Signed By: <Electronically signed by Philip Aguilar MD in OV> 01/02/25 0711 DD/ 0800 TD/TT: 12/31/24 0808 Hair Clipper Power: Willis Greene CNM IMG CT PROCEDURES Final R esult * Bacterial Vaginosis Panel (12/29/2024 2:29 PM EDT) Only the most recent of2 resultswithin the time period is included. TRICHOMONAS VAGINALIS DETECTION BY PCR NOT DETECTED Not Detect [facility] BACTERIAL VAGINOSIS DETECTION BY PCR NEGATIVE Negative [facility] Comment:The BV organism targ ets of the Xpert Xpress MVP test can becommensal in women; Xpert Xpress MVP positive results forbacterial vaginosis should be considered in conjunction withother clinical and patient information to determine thedisease status. Organisms that are not detected by the XpertXpress MVP test have also been reported to be associatedwith BV and aerobic vaginitis.The Xpert Xpress MVP test performance has not been evaluatedin patients under the age of 14. PREMA GROUP DETECTION BY PCR NOT DETECTED Not Detect [facility] Prema glab krusei PCR NOT DETECTED Not Detect [facility] Swab Vaginal structure / Unknown 12/29/2024 2:29 PM EDT 12/29/2024 5:00 PM EDT [facility] LAB MICROBIOLOGY - GENERA L ORDERABLES Final Result Performing Organization Address City/[facility]/ZIP Co de Phone Number [facility] [address] [place] [phone] * Culture, Urine, Routine (12/29/2024 2:29 PM EDT) Only the most recent of3 resultswithin the time period is included. Urine Urine specimen obtained by clean catch procedure / Unknown 12/29/2024 2:29 PM EDT 12/29/2024 5:00 PM EDT Comment:UACC Narrative [facility] - 12/31/2024 10:49 AM EDT Urine Culture No growth. Specimen Source: Urine clean catch [facility] LAB MICROBIOLOGY - GENERA L ORDERABLES Final Result Performing Organization Address [facility] Co de Phone Number [facility] [address] [place] [phone] * POCT fern test, vaginal fluid manually resulted (12/29/2024 2:26 PM EDT) CHANTELLE Prep Negative Comment:pH 4.5, neg whiff, n eg clue, neg trich, neg yeast, neg wbc Vaginal Fluid Vaginal structure / Unknown 12/29/2024 2:26 PM EDT [facility] POINT OF CARE TEST ENTER/ EDIT ORDERABLES Final Result * (ABNORMAL) POCT urinalysis dipstick manually resulted (12/29/2024 2:01 PM EDT) Only the most recent of3 resultswithin the time period is included. Color, UA Sue Clarity, UA Cloudy Glucose, UA Negative Bilirubin, UA Trace Comment:small Ketones, UA Negative Spec Grav, UA 1.030 Blood, UA Positive(A) Negative, None Detected Comment:trace-intact pH, UA 5.5 Protein, UA Trace Comment:100mg/dl Urobilinogen, UA 0.2 Leukocytes, UA Negative Negative, Rare, Trace Nitrite, UA Negative Negative, None Detected Appearance, UA dark yellow QC Media Lot # [id number] Lot# Expiration Date [id number] Urine 12/29/2024 2:01 PM EDT Willis Greene CN POINT OF CARE TEST ENTER/ EDIT ORDERABLES Final Result * (ABNORMAL) Lipid Panel, Standard (12/20/2024 11:09 AM EDT) Triglycerides 130 <150 mg/dL [facility] Comment:Desirable Triglyceri de: less than 150 mg/dLBorderline High Triglyceride 150-199 mg/dLHigh Triglyceride: 200-499 mg/dLVery High Triglyceride: greater than or equal to 5OO mg/dL Cholesterol 243(H) <200 mg/dL [facility] Comment:Desirable Cholestero l: less than 200 mg/dLBorderline High Cholesterol: 200-239 mg/dLHigh Cholesterol: greater than 239 mg/dL LDL Cholesterol Calculated 169(H) <100 mg/dL [facility] Comment:Desirable LDL: less than 100 mg/dLNear Optimal/Above Optimal LDL: 110- 129 mg/dLBorderline High LDL: 130-159 mg/dLHigh LDL: 160-189 mg/dLVery High LDL: greater than or equal to 190 mg/dL HDL Cholesterol 48 >40 mg/dL [facility] Comment:Desirable HDL: great er than 40 mg/dL Note: This HDL assay may give artificially low results in patients with liver disease. Blood Venous blood specimen / Unknown 12/20/2024 11:09 AM EDT 12/20/2024 12:18 PM EDT Teodoro Brown MD LAB BLOOD ORDERABLES Final Result [facility] [address] [place] [phone] * HM PAP/HPV (05/03/2024 10:27 AM EST) Historical Provider HEALTH MAINTENANCE Final Result * BI Mammogram Screening Tomosynthesis Bilateral (04/09/2023 9:50 AM EDT) Anatomical Region Laterality Modality Breast Bilateral Mammography 04/09/2023 9:50 AM EDT Narrative 04/27/2023 5:48 AM ISAAK Lark[place] [facility] [address] [place], [place] [address] Mammography Report Signed Patient: Bianca Ward MR#: [id number] 3 : 1970 Acct:[id number] Age/Sex: 53 / F ADM Date: 04/09/23 Loc: HO.MAMMO Attending Dr: Teodoro Hubbard MD Ordering Physician: Teodoro Hubbard MD Resu lts: 1Negative Date of Service: 04/09/23 Follow Up: 1 Year From Orig inal Mammogram Procedure(s): MM tomosynthesis screening BI Accession Number(s): [id number] cc: Teodoro Hubbard MD EXAMINATION: MM SCREENING DIGITAL BREAST TOMOSYNTHESIS, BILATERAL CLINICAL INFORMATION: Screening. Asymptomatic. COMPARISON: Mammography: This study is compared with prior exams dating back to 2017. TECHNIQUE: Digital breast tomosynthesis is performed in both the craniocaudal and mediolateral oblique views along with computer-aided detection (CAD). Synthesized 2D images are generated from the tomosynthesis. FINDINGS: There are scattered areas of fibroglandular density (ACR BI-RADS breast composition Category b). There are no significant masses, abnormal calcifications, or other abnormalities. MM/MM tomosynthesis screening BI IMPRESSION: No mammographic evidence of malignancy. ASSESSMENT: BI-RADS BI-RADS 1 - Negative RECOMMENDATION: Routine annual mammography screening. 1 year F/U This examination should not preclude the clinical evaluation of a suspicious palpable abnormality. This patient's information was entered into a reminder system with a target due date for their next mammogram. Dictated By: Jazmin Frias MD Signed By: <Electronically signed by Jazmin Frias MD in OV> 04/27/23 0544 DD/ 0950 TD/TT: Hair Clipper Power: Procedure Note Donotuseinterpreter, Image - 04/27/2023 Chaya [facility] [address] [place], [place] [address] Mammography Report Signed Patient: Bianca Ward DMR#: [id number] 3 : 1970Acct:[id number] Age/Sex: 53 / FADM Date: 04/09/23 Loc: HO.MAMMO Attending Dr: Teodoro Hubbard MD Ordering Physician: Teodoro Hubbard MDResu lts: 1Negative Date of Service: 04/09/23Follow Up: 1 Year From Orig inal Mammogram Procedure(s): MM tomosynthesis screening BI Accession Number(s): [id number] cc: Teodoro Hubbard MD EXAMINATION: MM SCREENING DIGITAL BREAST TOMOSYNTHESIS, BILATERAL CLINICAL INFORMATION: Screening. Asymptomatic. COMPARISON: Mammography: This study is compared with prior exams dating back to 2017. TECHNIQUE: Digital breast tomosynthesis is performed in both the craniocaudal and mediolateral oblique views along with computer-aided detection (CAD). Synthesized 2D images are generated from the tomosynthesis. FINDINGS: There are scattered areas of fibroglandular density (ACR BI-RADS breast composition Category b). There are no significant masses, abnormal calcifications, or other abnormalities. MM/MM tomosynthesis screening BI IMPRESSION: No mammographic evidence of malignancy. ASSESSMENT: BI-RADS BI-RADS 1 - Negative RECOMMENDATION: Routine annual mammography screening. 1 year F/U This examination should not preclude the clinical evaluation of a suspicious palpable abnormality. This patient's information was entered into a reminder system with a target due date for their next mammogram. Dictated By: Jazmin Frias MD Signed By: <Electronically signed by Jazmin Frias MD in OV> 04/27/23 0544 DD/ 0950 TD/TT: Hair Clipper Power: us Teodoro Brown MD IMG BI PROCEDURES Fin al Result * HIV-1/2 Antigen and Antibodies, Fourth Generation, with Reflexes (09/09/2022 11:18 AM EDT) Pathologist [facility] HIV Antigen/Antibody, 4th Generation NON-REAC TIVE NON-REAC TIVE [employer] [facility] Comment: HIV-1 antigen and HIV-1/HIV-2 antibodies were not detected. There is no laboratory evidence of HIV infection. PLEASE NOTE: This information has been disclosed to you from records whose confidentiality may be protected by state law. If your state requires such protection, then the state law prohibits you from making any further disclosure of the information without the specific written consent of the person to whom it pertains, or as otherwise permitted by law. A general authorization for the release of medical or other information is NOT sufficient for this purpose. For additional information please refer to http://[employer]ise[employer]/faq/DIN414 (This link is being provided for informational/ educational purposes only.) The performance of this assay has not been clinically validated in patients less than 2 years old. 09/09/2022 11:1 8 AM EDT 09/09/2022 11:19 AM EDT Narrative [facility] - 09/10/2022 7:20 PM EDT FASTING:YES FASTING: YES Willis Greene [facility] BLOOD ORDERABLES Brittany l Result [facility] [address], [place] [address] [employer] [facility] [address] [place] [phone] * HPV mRNA E6/E7 (08/18/2018 12:00 AM EST) Pathologist [facility] HPV mRNA E6/E7 Not Detected NOT DETECTED [facility] Comment: This test was performed using the APTIMA(R) HPV Assay ([employer] This assay detects E6/E7 viral messenger RNA (mRNA) from 14 high-risk HPV types (16,18,31,33,35,39,45,51, 52,56,58,59,66,68). For additional information please refer to: http://education.[employer]Outright/faq/CCO711a8 (This link is being provided for informational/ educational purposes only.) The analytical performance characteristics of this assay have been determined by [facility] [place], [place]. The modifications have not been cleared or approved by the FDA. This assay has been validated pursuant to the CLIA regulations and is used for clinical purposes. Test Performed by [facility] [place], [employer] [facility], [address] [address], [place] Hima Saavedra M.D., Ph.D., Director of Laboratories , CLIA [id number] Please note: Effective 02/25/2016, HPV testing will be performed using [employer]'s APTIMA test which targets mRNA. Detecting mRNA instead of DNA, as in older methods, offers significant improvements in specificity. 08/18/2018 Willis Greene CNM HISTORICAL/NON ORDERABLE LABS Final Result Performing Organization Address City/State/ZIP Co ma Phone Number [facility] [address] * Colonoscopy (12/04/2017) Colonoscopy Normal Normal Narrative Maggy Britney - 12/04/2017 Repeat in one years due to poor prep Historical Provider HEALTH MAINTENANCE Final Result from Last 3 Months or Most Recently Relevant to Health Maintenance Insurance [facility] [place] AD[place] Care Teams Surgical Assist Relationship Specialty Start Date End Date Teodoro Bone MD [address] [place] [phone] PCP - General Internal Medicine 01/23/17 Ron Constantino, NUBIA [address] [place] [phone] Registered Nurse Family Medicine 12/12/24 Bianca Lewis 12/12/24 Verenice Medrano Wader Boot Top AssemblerRemote Sensing Program Manager 09/09/23
--- OUTSIDE RECORDS SUMMARY | 2025-03-09 18:46 | XMS_ITS | Data Portability ---
Author Organization [place] [facility], Allergy Address [address] [facility] 100 [place] [address] Care Team Providers Care Stitcher Around Name Role Phone ALLYSON BLOOD Primary Care [...] her omeprazole and follow up with her director critical care as scheduled. Not available 06/03/2024 16:10:42 Plan of Treatment Reminders Order Date Submit Date Provider Last Modified By Organization Details Last Modified Time Details Appointments None recorded. Lab None recorded. Referral None recorded. Procedures None recorded. Surgeries None recorded. Imaging barium swallow study 024 [facility] Radiology (Scheduling, Multiplte Sites), [address] [place], [address], 4 11:57:35 Medication Orders None recorded. Patient TargetsNo targets recorded. Patient InstructionsNo instructions recorded. Reason for Referral None Reported. Results Created Date Observation Date Name Description Value Unit Range Abnormal Flag Note LastModifiedBy Organization Detail LastModifiedTime 02/18/20 24 02/18/2024 timoteo ferrer carolynn study No observ ation record ed. [facility] [address] [place], [address], 06/03/2024 15:56:21 Result Notes None recorded. Problems Name Problem SNOMED Code Status Onset Date Resolution Date Notes Provider Name and Address Organization Details Recorded Time Allergic rhinitis 12579574 Active 2015 Other allergic rhinitis; Note: Date Diagnosed: 01/18/2016 2:02 PM (J30.89) Not Available [facility] 4 02:18:37 Nasal congestio n 18095705 Active 2017 Nasal congestion ; Note: Date Diagnosed: 11/02/2017 1:30 PM (R09.81) Not Available [facility] 4 02:19:20 Hypertrop hy of nasal turbinate s 28972856 Active 2017 Hypertroph y of nasal turbinates ; Note: Date Diagnosed: 11/02/2017 4:08 PM (J34.3) Not Available [facility] 4 02:18:41 Bleeding from nose 369894533 Active 2021 Epistaxis; Note: Date Diagnosed: 05/16/2022 1:39 PM (R04.0) Not Available [facility] 4 02:18:30 Dysphagia 16747922 Active 2023 GORDON GENAO MD [address] [facility],[place] [address], [address] , [facility] - [facility] 4 11:07:46 Feeling of lump in throat 771091843 Active 2023 GORDON GENAO MD [address] [facility] [address], [address] , [facility] 4 11:07:48 Gastroeso phageal reflux disease without esophagit is 847455193 Active 2023 Zandra pompa [facility] 4 16:06:27 Problem Notes None recorded. Procedures Surgical History Date Name Laterality Status Provider Name and Address Organization Details Recorded Time 01/20/20 24 Fiberoptic Laryngoscopy (Comprehensive) completed GORDON LEACH MD [address] [place] [address], [place], [address], [facility] 01/20/2024 11:09:28 Imaging Results None recorded. Procedure Notes None recorded. Medical Equipment None Reported. Allergies Allergen ID Allergen Name Allergen Category Reaction Reaction Severity Criticality Documentation Date Start Date Code Code System Note Provider Name and Address Organization Details Recorded Time 59679 penicilli n V potassium medicatio n other Not available Not available 10/27/2023 5 RxNorm React ion: unkno wn, unspe cifie d;; Not Available [facility] 4 00:53:20 Medications Name Sig Start Date Stop Date Status Note LastModified by Organization Details LastModified Time losartan 50 mg tablet PLEASE SEE ATTACHED FOR DETAILED DIRECTIO NS active Not Available Not Available No t Available clonidine HCl 0.1 mg tablet TAKE 1 TABLET EVERY MORNING AND TAKE 2 TABLETS EVERY DAY AT BEDTIME DIRECTED active Not Available Not Available No t Available acetamino phen 325 mg tablet active Medicati on ID: [id number] B rand Name: acetamin ophen Se nd [...] nebulizat ion 05/16 completed Medicati on ID: [id number] D uration Value: 8 Brand Name: albutero l sulfate Send Method: E-Prescr ibed Sub s Allowed: subs OK Speci al Instruct ion: INHALE 3 MILLILIT ER BY NEBULIZA TION ROUTE 3 TIMES EVERY DAY NEEDED FOR SHORTNES S OF BREATH M christin[place] nGeneric Name: albutero l sulfate Not Available Not Available Not Available loperamid e 2 mg capsule TAKE 1 CAPSULE BY MOUTH EVERY 4 HOURS NEEDED LOOSE STOOL active Not Available Not Available No t Available cetirizin e 10 mg tablet TAKE 1 TABLET BY [...] ibuprofen 800 mg tablet TAKE 1 TABLET BY MOUTH IF NEEDED IN THE MORNING, AT NOON, AND AT BEDTIME FOR MILD PAIN. active Not Available Not Available No t Available fluconazo le 150 mg tablet TAKE 1 TABLET BY MOUTH ONE TIME FOR 1 DOSE active Not Available Not Available No t Available prazosin 1 mg capsule TAKE 1 CAPSULE BY MOUTH AT BEDTIME active Not Available Not Available No t Available fluconazo le 200 mg tablet USE DIRECTED : TAKE 1 TABLET TODAY AND AGAIN IN 72 HOURS active Not Available Not Available No t [...] No t Available clotrimaz ole 1 % vaginal cream INSERT 1 APPLICAT OR INTO THE VAGINA IN THE EVENING FOR 7 DAYS. active Not Available Not Available No t Available metronida zole 500 mg tablet TAKE 1 TABLET BY [...] t Available ciproflox acin 500 mg tablet TAKE 1 TABLET BY MOUTH 2 TIMES DAILY FOR 7 DAYS active Not Available Not [...] 100 mg tablet active Medicati on ID: [id number] B rand Name: quetiapi ne Send Method: E-Prescr ibed Sub s Allowed: subs OK Speci al Instruct ion: TAKE 1/2 TABLET BY MOUTH IN THE MORNING, 1/2 MIDDAY, AND 1 FULL TAB AT BEDTIME Medicati onGeneri cName: quetiapi ne Not Available Not Available Not Available ciclopiro x 8 % topical solution PLEASE SEE ATTACHED FOR DETAILED DIRECTIO NS active Not Available Not Available No t Available hydrocort isone 2.5 % topical cream with perineal applicato r INSERT INTO THE RECTUM 2 TIMES DAILY. active Not Available Not Available No t Available famotidin e 20 mg tablet TAKE 1 TABLET BY MOUTH TWICE A DAY active Not Available Not Available No t Available triamcino lone acetonide 0.025 % topical cream APPLY TO AFFECTED AREAS TWICE A DAY NEEDED FLARES. DECREASE SYMPTOMS IMPROVE. active Not Available Not Available No t Available trazodone 100 mg tablet TAKE 1 TABLET BY MOUTH EVERY DAY AT BEDTIME NEEDED active Not Available Not Available No t Available dicyclomi ne 20 mg tablet 05/16 completed Medicati on ID: [id number] D uration Value: 30 Brand Name: dicyclom ine Send Method: E-Prescr ibed Sub s Allowed: subs OK Speci al Instruct ion: TOME LILIA TABLETA POR VIA ORAL CUATRO VECES AL JANELL ...30 MINUTES PRIOR TO MEALS AND AT BEDTIME Medicati onGeneri cName: dicyclom ine Not Available Not Available Not Available phenazopy ridine 100 mg tablet TAKE 1 TABLET (100 MG) BY MOUTH WITH BREAKFAS T, WITH LUNCH, AND WITH EVENING MEAL FOR 2 DAYS. active Not Available Not Available No t Available mirtazapi ne 30 mg tablet active Medicati on ID: [id number] B rand Name: mirtazap ine Send Method: E-Prescr ibed Sub s Allowed: subs OK Speci al Instruct ion: TAKE 1 TABLET BY MOUTH EVERYDAY AT BEDTIME Medicati onGeneri cName: mirtazap ine Not Available Not Available Not Available trazodone 150 mg tablet 05/16 completed Medicati on ID: [id number] D uration Value: 30 Brand Name: trazodon [...] Not Available Not Available No t Available losartan 25 mg tablet TAKE 1 TAB ONCE PER DAY. IF BLOOD PRESSURE IS < 120 BEFORE TAKING MEDICATI ON, TAKE 1/2 TAB DAILY active Not Available Not Available No [...] for inhalatio n active Medicati on ID: [id number] B rand Name: Advair Diskus S end [...] Not Available Not Available No t Available hydroxyzi ne HCl 25 mg tablet active Medicati on ID: [id number] B rand Name: hydroxyz ine HCl Send [...] as directed 05/16 completed Medicati on ID: [id number] P jenniferribe d By Name: GENNY Rodriguez nd Name: azelasti ne Send Method: E-Prescr ibed Sub s Allowed: subs OK Medic ationGen ericName : azelasti ne Not Available Not Available Not Available estradiol 0.01% (0.1 mg/gram) vaginal cream USE DIRECTED : 1 GRAM PER VAGINA 3 TIMES PER WEEK. active Not Available Not Available No t Available Nasal Decongest ant (pseudoep hedrine) 30 mg tablet TAKE 1 TABLET (30 MG) BY MOUTH EVERY 4 (FOUR) HOURS IF NEEDED FOR CONGESTI ON FOR UP TO 10 DAYS. *NC* active Not Available Not Available No t Available ondansetr on 4 mg disintegr ating tablet active Medicati on ID: [id number] B rand Name: beverly walter Send Method: E-Prescr ibed Sub s Allowed: subs OK Speci al Instruct ion: TAKE 1 TABLET BY MOUTH EVERY DAY Medi cationGe nericNam e: ondamarizazuleika jose angel Not Available Not Available Not Available lithium carbonate 300 mg tablet TAKE 1 TABLET BY MOUTH TWICE A DAY WITH MEALS active Not Available Not Available No t Available fluticaso ne propionat e 50 mcg/actua tion nasal spray,lanny pension 2 puff into both nostrils once a day 2017 active Medicati on ID: [id number] D uration Value: 120 Prescri bed By Name: GENNY Rodriguez nd Name: fluticas one Send Method: E-Prescr ibed Sub s Allowed: subs OK Medic ationGen ericName : fluticas one Not Available Not Available Not Available clotrimaz ole 1 % topical cream APPLY TO SKIN AND TOENAILS DAILY FOR 12 WEEKS active Not Available Not Available No t Available colestipo l 1 gram tablet TAKE 1 TABLET BY MOUTH EVERY [...] Not Available Not Available No t Available potassium chloride ER 10 mEq tablet,ex tended release(p art/cryst ) TAKE 1 TABLET (10 MEQ) BY MOUTH ONCE PER DAY FOR 3 DAYS. DO NOT CRUSH OR CHEW. active Not Available Not Available No t Available bupropion HCl XL 150 mg 24 hr tablet, extended release TAKE 1 TABLET BY MOUTH EVERY DAY IN THE MORNING active Not Available Not Available No t Available nitrofura ntoin monohydra te/macroc rystals 100 mg capsule TAKE 1 CAPSULE BY MOUTH 2 TIMES DAILY FOR 5 DAYS. active Not Available Not Available No t Available acamprosa te 333 mg tablet,de layed release active Medicati on ID: [id number] B ward Name: acampros ate Send Method: E-Prescr ibed Sub s Allowed: subs OK Speci al Instruct ion: TAKE 2 TABLETS BY MOUTH 3 TIMES A DAY Medi cationGe nericNam e: acampros ate Not Available Not Available Not Available duloxetin e 30 mg capsule,d elayed release TAKE 1 CAPSULE BY MOUTH EVERY DAY IN THE MORNING active Not Available Not Available No t Available chlorhexi dine gluconate 0.12 % mouthwash [...] Not Available Not Available No t Available hydrochlo rothiazid e 12.5 mg tablet TAKE 1 TABLET BY MOUTH ONCE DAILY active Not Available Not Available [...] 1 FILM UNDER TONGUE ONCE A DAY NEEDED active Not Available Not Available No t Available Myrbetriq 25 mg tablet,ex tended release TAKE 1 TABLET BY MOUTH EVERY DAY active Not Available Not Available No t Available Suboxone 12 mg-3 mg sublingua l film DISSOLVE 1 FILM UNDER TONGUE ONCE A DAY [...] Not Available Not Available No t Available [employer] Blood Pressure Monitor-3 Series kit USE TO CHECK BLOOD PRESSURE ONCE DAILY active Not Available Not Available No t Available Vitals Date Recorded Body height Body mass index (BMI) Body weight Provider Name and Address Organization Details Last Updated DateTime 06/03/2024 167.64 cm 24.2 kg/m2 [address]52.[address] [facility] 06/03/2024 15:46:51 Social History None recorded. Functional Status None recorded. Mental Status None recorded. Family History Nothing Reported. Medical History No medical history recorded. Gynecological HistoryNo gynecological history recorded. Obstetrics History GPAL:G 0 P 0 0 0 0 Past Encounters Encounter ID Performer Location Encounter Start Date Encounter Closed Date Diagnosis/Indication Diagnosis SNOMED-CT Code Diagnosis ICD10 Code Diagnosis IMO Codes Diagnosis Note [id number] GORDON GENAO MD [facility] [address] [address] 01/20/2024 10:07:50 01/20/2024 11:10:51 Dysphagia 37753448 R13.10 Feeling of lump in throat 136483749 R09.89 [id number] ZANDRA CHURCHILL PA-C [facility] [address] [place] [address] 06/03/2024 15:31:06 06/03/2024 16:03:09 Feeling of lump in throat 036810417 R09.89 Dysphagia 01357348 R13.1 0 Gastroesop hageal reflux disease without esophagitis 536502138 K21.9 Health Concerns Section Related Observation LastModified by Organization Detai ls LastModified Time None Recorded Concern Status LastModified by Organization Details LastModified Time None Recorded Advance Directives Directive None Recorded Payers Insurance Date Sequence Insurance Name Policy Number Policy Dominguez Covered Member ID Dominguez Member ID Guarantor Name 06/02/2024 1 [place] [id number] Bianca Ward [id number] Bianca Ward 02/13/2025 1 [place] [id number] Bianca Ward [id number] Bianca Ward Notes Date Note Type Note Provider Name and Address Organization Details Recorded Time 01/20/2024 text/html ROS as noted in the HPI Patient reports 6 months of sensation of [...] scan of neck performed but Rakel contacted [facility] and they said none was in her chart GORDON LEACH MD [address] [place] [address], [address], [place] [facility] 01/20/2024 16:01:40 06/03/2024 text/html ROS as noted in the HPI 54 year old female presents for evaluation of the throat. Reports [...] with nonobstructive cricopharyngeal bar. GORDON LEACH MD [address] [place] [address], [place], [address], [place] [facility] 06/03/2024 16:46:02 OBGyn Episode No OBEpisode recorded.
--- OUTSIDE RECORDS SUMMARY | 2025-03-09 18:46 | XMS_ITS | Encounter Summary ---
Author Organization [employer] Address [address] [facility] [address] [place] [address] Care Team Providers Care Executive Director Sheltered Workshop Name Role Phone Teodoro Bone MD Primary Care Provide r Ron Constantino RN Unavailable [phone] Bianca Lewis Unavailable Reason for Visit * Reason Comments Med Refill Encounter Details Date Type Department Care Team (Late st Contact Info) Description 09/04/2022 Refill [facility] [address] [place], [place] [phone] Arabella Hernandez, ANP [address] [place] [address] Social History Tobacco Use Types Packs/Day Years [...] suspected to have Coronavirus/COVID-19? No / Unsure 08/28/2022 10:55 AM EDT documented as of this encounter Plan of Treatment Upcoming Encounters Date Type Department Care Team (Late st Contact Info) Description 05/30/2025 1:15 PM EST Office Visit [facility] [address] [place] [address] Teodoro Bone MD [address] [place], [place] [phone] documented as of this encounter Visit Diagnoses Not on filedocumented in this encounter Care Teams Executive Director Sheltered Workshop Relationship Specialty Start Date End Date Teodoro Bone MD [address] [place], [place] [phone] PCP - General Internal Medicine 01/23/17 Ron Constantino, NUBIA [address] [place] [address] Registered Nurse Family Medicine 12/12/24 Bianca Lewis 12/12/24 Verenice Medrano Hammer AdjusterCommunications Programmer 09/09/23 documented as of this encounter
--- OUTSIDE RECORDS SUMMARY | 2025-03-09 18:46 | XMS_ITS | Encounter Summary ---
Author Organization [employer] Address [address] [facility] [address] [place] [address] Care Team Providers Care Knife Operator Name Role Phone Teodoro Bone MD Primary Care Provide r Ron Constantino RN Unavailable [phone] Bianca Lewis Unavailable Reason for Visit * Reason Comments Med Refill Encounter Details Date Type Department Care Team (Late st Contact Info) Description 09/24/2022 Refill [facility] [address] [place], [place] [phone] Arabella Hernandez, ANP [address] [place] [address] Social History Tobacco Use Types Packs/Day Years [...] suspected to have Coronavirus/COVID-19? No / Unsure 09/09/2022 12:02 PM EDT documented as of this encounter Plan of Treatment Upcoming Encounters Date Type Department Care Team (Late st Contact Info) Description 05/30/2025 1:15 PM EST Office Visit [facility] [address] [place] [address] Teodoro Bone MD [address] [place], [place] [phone] documented as of this encounter Visit Diagnoses Not on filedocumented in this encounter Care Teams Knife Operator Relationship Specialty Start Date End Date Teodoro Bone MD [address] [place], [place] [phone] PCP - General Internal Medicine 01/23/17 Ron Constantino, NUBIA [address] [place] [address] Registered Nurse Family Medicine 12/12/24 Bianca Lewis 12/12/24 Verenice Medrano Livestock Judging CoachCognos Bi Developer 09/09/23 documented as of this encounter
--- OUTSIDE RECORDS SUMMARY | 2025-03-09 18:46 | XMS_ITS | Encounter Summary ---
Author Organization [employer] Address [address] [facility] 7[address] [place] [address] Care Team Providers Care Yarn Worker Name Role Phone Teodoro Bone MD Primary Care Provide r Ron Constantino RN Unavailable [phone] Bianca Lewis Unavailable Reason for Visit * Reason Onset Date Comments chart prep 03/08/2025 Encounter Details Date Type Department Care Team ([facility] st Contact Info) Description 03/08/2025 Telephone [facility] [address] [place], [place] [phone] Teodoro Bone MD [address] [place], [place] [phone] chart prep Social History Tobacco Use Types Packs/Day Years [...] encounter Miscellaneous Notes * Telephone Encounter - Chichi Tan [place] - 03/08/2025 3:26 PM EDT Chart Prep Labs: done Images: done Screenings: Colonoscopy Vaccines due: Covid Due, PCV20 Due, and Flu Due Referrals: Completed Overdue care gaps: Disability and Oral Health documented in this encounter Plan of Treatment Upcoming Encounters Date Type Department Care Team (Late st Contact Info) Description 05/30/2025 1:15 PM EST Office Visit [facility] [address] [place], [place] [phone] Teodoro Bone MD [address] [place] [address] documented as of this encounter Visit Diagnoses Not on filedocumented in this encounter Additional Health Concerns Assessment Noted Time PHQ-9 Depression Total Score: 9 01/06/20 25 2:11 PM EDT documented as of this encounter Care Teams Yarn Worker Relationship Specialty Start Date End Date Teodoro Bone MD [address] [place] [address] PCP - General Internal Medicine 01/23/17 Ron Constantino RN [address] [place] [address] Registered Nurse Family Medicine 12/12/24 Bianca Lewis 12/12/24 Verenice Medrano Assignment Desk AssistantPatrol Supervisor 09/09/23 documented as of this encounter
--- OUTSIDE RECORDS SUMMARY | 2025-03-09 18:46 | XMS_ITS | Encounter Summary ---
Author Organization [employer] Address [address] [facility] 7t [place] [address] Care Team Providers Care Flake Drier Name Role Phone Teodoro Bone MD Primary Care Provide r Ron Constantino RN Unavailable [phone] Bianca Lewis Unavailable Reason for Visit * Reason Comments Med Refill Encounter Details Date Type Department Care Team (Late st Contact Info) Description 08/29/[address] [facility] [address] [place], [place] [phone] Jaclyn Romano MD [address] [place] [address] Acute midline low back pain without sciatica [...] Description 05/30/2025 1:15 PM EST Office Visit [facility] [address] [place] [address] Teodoro Bone MD [address] [place] [address] documented as of this encounter Visit Diagnoses Diagnosis Acute midline low back pain without sciatica documented in this encounter Additional Health Concerns Assessment Noted Time PHQ-9 Depression Total Score: 6 11/14/19 23 1:08 PM EDT documented as of this encounter Care Teams Flake Drier Relationship Specialty Start Date End Date Teodoro Bone MD [address] [place] [address] PCP - General Internal Medicine 01/23/17 Ron Constantino, NUBIA [address] [place] [address] Registered Nurse Family Medicine 12/12/24 Bianca Lewis 12/12/24 Verenice Medrano Radiology TranscriptionistMiddle School Baseball Coach 09/09/23 documented as of this encounter
--- OUTSIDE RECORDS SUMMARY | 2025-03-09 18:46 | XMS_ITS | Encounter Summary ---
Author Organization [employer] Address [address] [facility] 7t [place] [address] Care Team Providers Care Civil Engineering Director Name Role Phone Teodoro Bone MD Primary Care Provide r Ron Constantino RN Unavailable [phone] Bianca Lewis Unavailable Reason for Visit * Reason Onset Date Comments PT-1 06/09/2024 Encounter Details Date Type Department Care Team ([facility] st Contact Info) Description 06/09/2024 Telephone [facility] [address] [place], [place] [phone] Teodoro Bone MD [address] [place], [place] [phone] PT-1 Social History Tobacco Use Types Packs/Day Years [...] encounter Miscellaneous Notes * Telephone Encounter - Walt Burt - 06/09/2024 11:42 AM EST Patient calling requesting PT1 Home Address verified: Y/N: Yes Provider name or facility name: [facility]: [address] [place] [address]: [address] [place] [address] Pain Management Center: [address] [place] [address] Escort needed: For Pain management Only not the Other Ones Do you have a wheelchair: Y/N: No If yes- Manual or electric: Visits: (3x Month) documented in this encounter Plan of Treatment Upcoming Encounters Date Type Department Care Team ([facility] Contact Info) Description 05/30/2025 1:15 PM EST Office Visit [facility] [address] [place] [address] Teodoro Bone MD [address] [place] [address] documented as of this encounter Visit Diagnoses Not on filedocumented in this encounter Additional Health Concerns Assessment Noted Time PHQ-9 Depression Total Score: 24 024 1:52 PM EDT documented as of this encounter Care Teams Civil Engineering Director Relationship Specialty Start Date End Date Teodoro Bone MD [address] [place] [address] PCP - General Internal Medicine 01/23/17 Ron Constantino, NUBIA [address] [place] [address] Registered Nurse Family Medicine 12/12/24 Bianca Lewis 12/12/24 Verenice Medrano Powerhouse MechanicPharmacy Intern 09/09/23 documented as of this encounter
== END 2025-03-09 14:22 | disposition home or self-care (01) ==
LOC: HO.HHCL 14:21
PROVIDERS: PCP Internal Medicine; Visit Provider Internal Medicine
DX: I10 Essential (primary) hypertension (principal); Q38.5 Congenital malformations of palate, not elsewhere classified
CPT/HCPCS: 36415; 80053; 85025